=== PATIENT | male | born 1960 | race Caucasian/White ===

== ENCOUNTER → 2019-04-16 08:40 | Outpatient (CLI) | payer MEDICARE, MEDICAID, SELFPAY ==
--- NOTE | 2019-04-16 08:45 | CA_ITS ---
PROCEDURE: 2-D M-mode and color Doppler study INDICATIONS FOR THE TEST: Chest pain COPD Heart Murmur Tobacco Smoking Palpitations Fatigue Syncope EdemaX HypertensionXDiabetes MellitusX Rheumatic Fever SOB MCKEON ObesityXHyperlipidemiaX Family History HDX Additional History CKD,CHF TDS/TLS SECONDARY TO MORBID OBESITY PATIENT INFORMATION HEIGHT: 66 WEIGHT:278 GENDER: Male B/P:100/69 2-D/M-MODE INTERPRETATION: 2-D MEASUREMENTS OBSERVED VALUES IN CMS Right Ventricular Dimension (RVDd) 3.4 Interventricular Septum (Thickness)(IVsd) 1.0 Left Ventricular Internal Dimensions(LVIDd) 4.7 Left Ventricular Posterior Wall (Thickness)(LVPWd) .9 Aortic Root 4.3 Aortic Cusp Separation 2.1 Left Atrial Dimensions (LAD) 2.4 2D 1. Left atrium is mildly enlarged, left ventricle is normal size, mild concentric left ventricular hypertrophy, visually estimated ejection fraction 55% with no regional wall motion abnormality. 2. The right atrium and right ventricle are mildly enlarged with normal contractility. 3. The aortic valve is minimally thickened and calcified leaflet continue to display good mobility, aortic root is enlarged measuring 4.3 cm 4. The mitral and tricuspid valve are grossly normal. 5. The pulmonic valve is poorly visualized. 6. No significant pericardial effusion noted. DOPPLER INTERROGATION: Doppler interrogation of the aortic, mitral and tricuspid valve reveals presence of mild mitral and tricuspid regurgitation, tricuspid regurgitation jet velocity is inadequate for calculation of the right ventricular systolic pressure, grade 1 diastolic dysfunction seen without tissue Doppler evidence of raised left atrial pressure. CONCLUSION: 1. Biatrial enlargement, normal left ventricular size, mild concentric left ventricular hypertrophy, visually estimated ejection fraction 55% with no regional wall motion abnormality, grade 1 diastolic dysfunction seen without tissue Doppler evidence of raised left atrial pressure. 2. Mildly enlarged right ventricle with normal contractility. 3. Mild mitral and tricuspid regurgitation 4. No significant pericardial effusion noted.
== END ==
PROVIDERS: PCP Emergency Medicine; Visit Provider Urology
DX: N18.4 Chronic kidney disease, stage 4 (severe); R89.9 Unspecified abnormal finding in specimens from other organs, systems and tissues; R60.0 Localized edema; I12.9 Hypertensive chronic kidney disease with stage 1 through stage 4 chronic kidney disease, or unspecified chronic kidney disease
CPT/HCPCS: 93306

== ENCOUNTER 2019-11-08 11:12 | Inpatient (IN) ==
--- NOTE | 2019-11-08 10:44 | Emergency Department Note ---
ED Disposition Clinical Impression: Influenza A, Sinus tachycardia Respiratory failure with hypoxia Qualifiers: Chronicity: acute Qualified Code(s): J96.01 - Acute respiratory failure with hypoxia Disposition: Admitted As Inpatient Condition on Discharge: Fair - Critical Care Critical Care Time: Yes Attestation: On , the high probability of a clinically significant, sudden or life threatening deterioration of the following system(s) required my full and direct attention, intervention and personal management. The time I documented below is in addition to time spent performing reported procedures but includes the following listed in this critical care notation. Vital system(s) involved:: Respiratory Failure My critical care processes included: Assessment & monitoring of V/S, Initial and Re-exams, Data Review/Interpretation, Coordinating Care, Medication Orders and management, Documentation Medical Decision Making - Huang Inquiry Pt receiving controlled substance: No Vital Signs: 11/08/19 10:36 11/08/19 11:45 11/08/19 12:13 Temperature 98.7 F 102.1 F H Temperature Source Oral Rectal Pulse Rate [Right Radial] 140 H 140 H 139 H Respiratory Rate 18 Blood Pressure [Right Arm] 104/61 L 116/70 107/65 L Blood Pressure Mean [Right Arm] 75 85 79 Blood Pressure Source [Right Arm] Automatic Cuff Automatic Cuff Blood Pressure Position [Right Arm] Sitting Sitting 02 Sat by Pulse Oximetry 80 L 94 L Oxygen Delivery Method Room Air Nasal Cannula Oxygen Flow Rate (LPM) 4 11/08/19 13:07 11/08/19 13:52 Temperature Temperature Source Pulse Rate [Right Radial] 139 H 135 H Respiratory Rate Blood Pressure [Right Arm] 106/74 L 98/67 L Blood Pressure Mean [Right Arm] 84 77 Blood Pressure Source [Right Arm] Automatic Cuff Automatic Cuff Blood Pressure Position [Right Arm] Sitting Sitting 02 Sat by Pulse Oximetry 93 L 92 L Oxygen Delivery Method Nasal Cannula Nasal Cannula Oxygen Flow Rate (LPM) 4 4 - Lab Data Lab Results 11/08/19 10:50: WBC 8.6, RBC 3.23 L, Hgb 9.5 L, Hct 31.1 L, MCV 96.2 H, MCH 29.4, MCHC 30.6 L, RDW 15.3, Plt Count 152, MPV 10.0, Neut % (Auto) 73.0, Lymph % (Auto) 11.3, [place] % (Auto) 11.9 H, Eos % (Auto) 2.7, Baso % (Auto) 1.1, Neut # (Auto) 6.3, Lymph # (Auto) 1.0, [place] # (Auto) 1.0, Eos # (Auto) 0.2, Baso # (A uto) 0.1 11/08/19 10:50: Sodium 142, Potassium 4.7, Chloride 104, Carbon Dioxide 30, Anion Gap 12.7, BUN 42 H, Creatinine 3.64 H, Estimated Creat Clear 40, Estimated GFR 17 L*, Est GFR ( Amer) 21 L, Glucose 181 H, Calcium 8.4 L, Total Bilirubin 0.2, AST 37, ALT 21, Alkaline Phosphatase 84, Total Protein 6.8, Albumin 2.6 L, Globulin 4.2 H, Albumin/Globulin Ratio 0.6 L 11/08/19 10:50: Lactate 3.1 H 11/08/19 10:50: Troponin I 0.03, Lipase 199 11/08/19 10:50: Influenza Type A Ag Positive A, Influenza Type B Ag Negative 11/08/19 10:50: Group A Strep Rapid Negative 11/08/19 10:50: TSH 1.03, Free T4 Index 3.5 L, Thyroxine (T4) 8.9, T3 Uptake 39 11/08/19 11:38: Urine Color Yellow, Urine Appearance Clear, Urine pH 8.0, Ur Specific [place] 1.020, Urine Protein 2+, Urine Glucose (UA) Negative, Urine Ketones Negative, Urine Blood 1+, Urine Nitrate Negative, Urine Bilirubin Negative, Urine Urobilinogen 0.2, Ur Leukocyte Esterase Negative, Urine RBC 5- 10, Urine WBC 3-5, Ur Squamous Epith Cells Occasional, Urine Bacteria None, Hyaline Casts Occasional 11/08/19 11:55: Specimen Source Left brachial, O2 % 4lpm nc, ABG pH 7.42, ABG pCO2 47.2 H, ABG pO2 33.8 L, ABG HCO3 29.8 H, ABG Total CO2 31.2 H, ABG O2 Saturation 57 L*, ABG Base Excess 5.3 H, Thong Test Non applicable Hgb 9.3 on 10/14/19 per [place] records. Result diagrams: 11/08/19 10:50 11/08/19 10:50 Orders (Tests/Meds): ED MEDICATIONS Generic Name Dose Route Start Last Admin Trade Name Freq PRN Reason Stop Dose Admin Sodium Chloride 1,000 mls @ 150 mls/hr 11/08/19 13:30 Sod Chlor 0.9% 1000ml Bag IV 12/08/19 13:29 .Q6H40M JOSHUA Discontinued Medications Generic Name Dose Route Start Last Admin Trade Name Freq PRN Reason Stop Dose Admin Acetaminophen 1,000 mg 11/08/19 11:55 11/08/19 12:11 Tylenol 500mg Tablet PO 11/08/19 11:56 1,000 mg ONCE ONE Administration Sodium Chloride 1,000 mls @ 999 mls/hr 11/08/19 12:15 11/08/19 12:14 Sod Chlor 0.9% 1000ml Bag IV 11/08/19 13:15 999 mls/hr .Q1H1M JOSHUA Administration ORDERS Category Date Time Status Troponin I Q3H Lab 11/08/19 14:00 Ordered Troponin I Q3H Lab 11/08/19 17:00 Ordered Blood Culture Stat Micro 11/08/19 10:50 Received Strep Screen Confirmation Stat Micro 11/08/19 10:50 Received - Radiology Data #1 Image(s): Chest Image Reviewed: Yes I have reviewed radiologist's interpretation cardiomegaly, NAD - CT Data CT Scan: Head, Abdomen, Pelvis Time Received: 11:[address] Reviewed: Yes: I have viewed the radiologist's interpretation Findings Narrative: abdomen/pelvis: FINDINGS: LOWER THORAX: There are some atelectatic changes in the lung bases. ABDOMEN & PELVIS: The liver, spleen, adrenal glands have an unremarkable appearance. There is a subtle isodense lesion in the pancreas at the junction of the body in the tail measuring 2 cm. Average density is near water values. There is a 2.5 cm cyst within the right kidney. Hyperdensity is present in the right kidney anteriorly at 1 cm nonspecific. There are gallstones present. No evidence of appendicitis or diverticulitis. There is a mild amount of feces in the rectosigmoid region. There is some mild stranding of the subcutaneous fat at the umbilical region. A small umbilical hernia containing fat is noted. No pelvic mass or abnormal fluid collection of the pelvis. There are mild degenerative changes of the spine and hips. IMPRESSION: 1. Rim like calcification in the gallbladder most likely related cholelithiasis. Partial calcification of the gallbladder wall is an additional consideration. Consider ultrasound for further evaluation. 2. There is a questionable 2 cm isodense lesion in the pancreas at the junction of the body in the tail. Nonemergent CT or MRI of the pancreas without and with contrast may provide further evaluation. 3. 1 cm right renal hyperdense nodule. Ultrasound may confirm cystic or solid nature 4. There is a small umbilical hernia containing fat. There is some stranding of the subcutaneous fat around this region consistent with cellulitis Dictated by: Thong Edmondson MD 11/08/2019 11:44 Electronically signed by Thong Edmondson MD in [place] 11/08/2019 11:44 head: FINDINGS: No midline shift, mass effect, intracranial hemorrhage, hydrocephalus, or extra-axial fluid collection is evident. The calvarium has an unremarkable appearance. There is a minimal amount of fluid in the mastoid sinuses. Small air-fluid levels present in the left maxillary sinus with bilateral maxillary sinus sphenoid and ethmoid mucosal thickening. IMPRESSION: 1. No acute intracranial findings. 2. Paranasal sinus and mastoid sinus disease Dictated by: Thong Edmondson MD 11/08/2019 11:34 Electronically signed by Thong Edmondson MD in [place] 11/08/2019 11:34 - ECG Data Tracing #1 I reviewed this ECG and interpreted as documented below: EKG interpreted by Isaiah Dos Santos MD: Rhythm: sinus tachycardia Rate: 138 Golden: Left Ectopy: none Conduction: normal ST Segment Changes: Elevation in V1 and V2, new T Wave Changes: none Q Waves: Septal Poor R wave progression Low voltage QRS - Physician Consults Physician Consulted: TIM Koenig, for Dr. Rowe Time: 10:58 Reason -: Cardiology Eval/Care Comment/Response: He will see the patient and review EKG. Patient is not currently having chest pain. Additional Consult: Sally Time: 13:26 Reason -: Admission Comment/Response: Agrees to admit the patient to the hospital. We discussed the patient's clinical information, including history, exam, laboratory and radiology results and ED course. Per hospital procedure, I will write temporary bridge inpatient orders on the patient. Specific orders requested by the admitting physician: Continue normal saline at 150 cc/h, echocardiogram, Tamiflu, oxygen General Adult HPI - General Chief complaint: Altered Mental Status Stated complaint: AMS Time Seen by Provider: 11/08/19 11:15 - History of Present Illness HPI narrative: Patient is a poor historian. Brought in by ambulance from [facility]. Reported change in his general condition today. Generally weak, not as talkative as usual. Pulse ox 9091% by [facility] staff, but in the mid 80s by EMS. Patient complains of a sore throat. He thinks he has had a fever. Complains of abdominal pain. Denies vomiting or diarrhea. He has noted cough in the emergency room. Noted to have been at the medical equipment sales office 4 days ago. He has anemia and was sent to surgery for colonoscopy. They sent him to medical equipment sales office for card iac clearance prior to procedure. He was found to be tachycardic with a heart rate in the 130s at the medical equipment sales office. Carvedilol was increased. detention reports no change in his heart rate since then. The patient is noted to be diabetic. He has some sort of unspecified chronic cognitive impairment per [facility] staff. - Related Data Home Medications Medication Instructions Recorded Confirmed atorvastatin 20 mg tablet 20 mg PO HS 10/27/18 11/08/19 furosemide 40 mg tablet 40 mg PO DAILY 10/27/18 11/08/19 levothyroxine 100 mcg tablet 100 mcg PO DAILY 10/27/18 11/08/19 risperidone 1 mg tablet 1 mg PO BID 10/27/18 11/08/19 cholecalciferol (vitamin D3) 25 1,000 unit PO DAILY 04/08/19 11/08/19 mcg (1,000 unit) capsule allopurinol 100 mg tablet 100 mg PO DAILY 11/04/19 11/08/19 loratadine 10 mg tablet 10 mg PO DAILY 11/04/19 11/08/19 polysaccharide iron complex 150 mg 150 mg PO DAILY 11/04/19 11/08/19 iron capsule valproic acid (as sodium salt) 250 25 ml PO BID 11/04/19 11/08/19 mg/5 mL (5 mL) oral solution Acetaminophen [Tylenol 500mg 500 mg PO Q4HP PRN 11/08/19 11/08/19 tablet] Calcium Acetate 667 mg PO TID 11/08/19 11/08/19 Fluticasone Propionate [Flovent 1 spray IH DAILY 11/08/19 11/08/19 Diskus] Insulin Glargine,Hum.rec.anlog 20 unit SQ 0900 11/08/19 11/08/19 [Basaglar Kwikpen U-100] Insulin Regular, Human [Novolin R] 1 needle IJ ACHS 11/08/19 11/08/19 Isosorbide Mononitrate 20 mg PO BID 11/08/19 11/08/19 Mag Carb/Aluminum Hydrox/Algin 30 ml PO Q6HP PRN 11/08/19 11/08/19 [Acid Gone Antacid Liquid] Ondansetron HCl [Zofran 4mg Tab*] 4 mg PO Q6HP PRN 11/08/19 11/08/19 Sennosides/Docusate Sodium [Senna 2 tab PO DAILYP PRN 11/08/19 11/08/19 Plus 8.6-50 mg Softgel] carvediloL [Carvedilol 12.5mg Tab] 12.5 mg PO BID 11/08/19 11/08/19 guaiFENesin [Robafen] 10 ml PO Q6HP PRN 11/08/19 11/08/19 Allergies Allergy/AdvReac Type Severity Reaction Status Date / Time No Known Allergies Allergy Verified 11/04/19 10:59 [facility] History - Hepatitis A Screen Attestation statement:: This patient has been screened for Hepatitis A risk factors. I have reviewed the patient's past medical history: Yes Medical History: Reports:: Congestive Heart Failure, Diabetes Mellitus Type 1, Hyperlipidemia, Hypertension, Renal Disease, Renal Insufficiency Other Medical History: Reports: Hypothyroidism, Thyroid Disease, Other Other Surgeries: Yes: No Previous Surgery, Tubal Ligation - Social History Smoking Status: Smoker, status unknown Alcohol Intake: never Substance Use Type: denies use Occupational Status: disabled Family Hx:: Coronary Artery Disease, Heart Attack Comment: Brother-OK. Mother-CAD ROS Obtained: Yes All systems reviewed & no additional complaints - Constitutional Constitutional: Reports fever(s) - ENT Ears, Nose, Mouth, and Throat: Reports sore throat - Cardiovascular Cardiovascular: Denies chest pain - Respiratory Respiratory: Yes cough, No dyspnea - Gastrointestinal Gastrointestingal: Reports: abdominal pain. Denies: diarrhea, vomiting Physical Exam - General General appearance: alert - Head Head exam: atraumatic, normocephalic - Eye Eye exam: Present: normal appearance, EOMI - ENT ENT exam: Present: normal oropharynx, mucous membranes moist, TM's normal yamel aterally - Neck Neck exam: Present: normal inspection, full ROM, trachea midline. Absent: meningismus, lymphadenopathy - Chest Chest inspection: Present: normal inspection, symmetric chest wall rise - Respiratory Respiratory exam: Present: normal lung sounds bilaterally. Absent: respiratory distress - Cardiovascular Cardiovascular exam: Present: normal rhythm, tachycardia, normal heart sounds - Abdominal Exam Abdominal exam: Present: distention, tenderness, normal bowel sounds. Absent: guarding, rebound Abdominal tenderness: Present: diffuse, mild - Extremities Exam Extremities exam: Present: normal inspection - Neurological Exam Neurological exam: Present: alert - Psychiatric Psychiatric exam: Present: normal affect, normal mood - Skin Skin exam: Present: warm, dry. Absent: rash
[2019-11-08 11:20] LABS: Basophils # 0.1 K/mm3 (0-0.2); Basophils % 1.1 % (0.1-2.0); Eosinophils # 0.2 K/mm3 (0.0-0.4); Eosinophils % 2.7 % (0.1-12.0); Hematocrit 31.1 % (42.0-52.0); Hemoglobin 9.5 g/dL (14.1-18.0); Lymphocytes % 11.3 % (10-50); Mean Corpuscular HGB Conc 30.6 g/dL (31.8-35.4); Mean Corpuscular Volume 96.2 fl (80-94); Monocytes % 11.9 % (1.7-9.3); Neutrophils # 6.3 K/mm3 (1.8-7.8); Platelet Count 152 K/mm3 (142-424); Red Blood Count 3.23 M/mm3 (4.60-6.20); Red Cell Distribution Width 15.3 % (11.5-17.5); White Blood Count 8.6 K/mm3 (4.8-10.8)
[2019-11-08 11:28] LABS: Albumin Level 2.6 gm/dL (3.4-5.0); Albumin/Globulin Ratio 0.6 (1.1-1.8); Anion Gap 12.7 mEq/L (5-15); Bilirubin,Total 0.2 mg/dL (0.2-1.0); Calcium 8.4 mg/dL (8.5-10.1); Globulin 4.2 gm/dl (1.3-3.2); Total Protein,Serum 6.8 gm/dL (6.4-8.2)
[2019-11-08 11:44] LABS: Microscopic, Urine URINE MICROSCOPIC (MICROSCOPIC)
[2019-11-08 11:45] LABS: Free Thyroxine Index 3.5 ug/dL (5.93-13.13); Thyroid Stimulating Hormone 1.03 uIU/ml (0.358-3.740)
[2019-11-08 11:47] LABS: Appearance,Urine CLEAR (Clear); Bilirubin,Urine Negative (Negative); Blood, Urine 1+ (Negative); Color,Urine YELLOW (Yellow); Glucose,Urine (UA) Negative (Negative); Ketones,Urine Negative (Negative); Leukocyte Esterase,Urine Negative (Negative); Protein,Urine 2+ (Negative); Urobilinogen,Urine 0.2 EU/dl (0.2)
[2019-11-08 11:57] LABS: Hyaline Casts,Urine Occasional #/lpf (0); Squamous Epithelial Cell,Urine Occasional #/hpf (0-5)
--- NOTE | 2019-11-08 11:57 | Consult Report ---
History of Present Illness Consult date: 11/08/19 Consult reason: shortness of breath Chief complaint: Sore throat, abnormal EKG Additional Medical History:: 1. DM, insulin treated 2. CKD, stage 3, followed by nephrology at [facility] 2[facility]6-3[facility]0 with GFR 28-22, 10/2019 3. Chronic anemia 4. Obesity 5. 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 Mental deficit 7. Hypertension A. Echo, 04/2019, normal LVEF without wall motion abnormalities or significant valve disease. Mild concentric LVH. Mild RVE with normal contractility. 8. Hyperlipidemia, on statin History of present illness: 59-year-old male from [facility] presented to the ER for evaluation. Reportedly has had some decrease in mental status, continued elevated heart rate despite increasing carvedilol therapy earlier this week and generalized malaise and aches. Patient is a an extremely poor historian. He does complain of a sore throat and has a persistent cough. During my exam the patient does have upper extremity tremors. EKG today is sinus tachycardia with questionable ST elevation in the V1 V2 leads with Q waves noted as well. Compared to previous EKGs and after discussion with Dr. Rowe, this is not felt to represent an acute ST elevation ME but rather early repolarization in the setting of an old septal ME. Initial troponin is normal. Of note patient does test positive for influenza A [facility] History Medical History: Reports:: Congestive Heart Failure, Diabetes Mellitus Type 1, Hyperlipidemia, Hypertension, Renal Disease, Renal Insufficiency Denies:: Diabetes Mellitus Type 2 *Have you ever received a pneumonia vaccine?: No *Have you received a flu vaccine this season?: Yes Other Medical History: Reports: Hypothyroidism, Thyroid Disease, Other Other Surgeries: Yes: No Previous Surgery, Tubal Ligation - *Social History Smoking Status: Never smoker Alcohol Intake: never Substance Use Type: denies use *Occupational Status:: disabled [facility]: [facility] *Travel in the last 8 weeks: None Family Hx:: Coronary Artery Disease, Heart Attack Meds Home Medications Medication Instructions Recorded Confirmed Type atorvastatin 20 mg tablet 20 mg PO HS 10/27/18 11/08/19 History furosemide 40 mg tablet 40 mg PO DAILY 10/27/18 11/08/19 History levothyroxine 100 mcg tablet 100 mcg PO DAILY 10/27/18 11/08/19 History risperidone 1 mg tablet 1 mg PO BID 10/27/18 11/08/19 History cholecalciferol (vitamin D3) 25 1,000 unit PO DAILY 04/08/19 11/08/19 History mcg (1,000 unit) capsule allopurinol 100 mg tablet 100 mg PO DAILY 11/04/19 11/08/19 History loratadine 10 mg tablet 10 mg PO DAILY 11/04/19 11/08/19 History polysaccharide iron complex 150 mg 150 mg PO DAILY 11/04/19 11/08/19 History iron capsule valproic acid (as sodium salt) 250 25 ml PO BID 11/04/19 11/08/19 History mg/5 mL (5 mL) oral solution Acetaminophen [Tylenol 500mg 500 mg PO Q4HP PRN 11/08/19 11/08/19 History tablet] Calcium Acetate 667 mg PO TID 11/08/19 11/08/19 History Fluticasone Propionate [Flovent 1 spray IH DAILY 11/08/19 11/08/19 History Diskus] Insulin Glargine,Hum.rec.anlog 20 unit SQ 0900 11/08/19 11/08/19 History [Basaglar Kwikpen U-100] Insulin Regular, Human [Novolin R] 1 needle IJ ACHS 11/08/19 11/08/19 History Isosorbide Mononitrate 20 mg PO BID 11/08/19 11/08/19 History Mag Carb/Aluminum Hydrox/Algin 30 ml PO Q6HP PRN 11/08/19 11/08/19 History [Acid Gone Antacid Liquid] Ondansetron HCl [Zofran 4mg Tab*] 4 mg PO Q6HP PRN 11/08/19 11/08/19 History Sennosides/Docusate Sodium [Senna 2 tab PO DAILYP PRN 11/08/19 11/08/19 History Plus 8.6-50 mg Softgel] carvediloL [Carvedilol 12.5mg Tab] 12.5 mg PO BID 11/08/19 11/08/19 History guaiFENesin [Robafen] 10 ml PO Q6HP PRN 11/08/19 11/08/19 History Allergies Allergy/AdvReac Type Severity Reaction Status Date / Time No Known Allergies Allergy Verified 11/04/19 10:59 Review of Systems - Review of Systems Review of systems:: unable to obtain Exam Vital signs and Labs for Last 24 Hours: Temp Pulse Resp BP Pulse Ox 102.1 F H 140 H 18 116/70 80 L 11/08/19 11:45 11/08/19 11:45 11/08/19 10:36 11/08/19 11:45 11/08/19 10:36 Laboratory Results - last 24 hr 11/08/19 10:50: WBC 8.6, RBC 3.23 L, Hgb 9.5 L, Hct 31.1 L, MCV 96.2 H, MCH 29.4, MCHC 30.6 L, RDW 15.3, Plt Count 152, MPV 10.0, Neut % (Auto) 73.0, Lymph % (Auto) 11.3, [place] % (Auto) 11.9 H, Eos % (Auto) 2.7, Baso % (Auto) 1.1, Neut # (Auto) 6.3, Lymph # (Auto) 1.0, [place] # (Auto) 1.0, Eos # (Auto) 0.2, Baso # (Auto) 0.1 11/08/19 10:50: Sodium 142, Potassium 4.7, Chloride 104, Carbon Dioxide 30, Anion Gap 12.7, BUN 42 H, Creatinine 3.64 H, Estimated Creat Clear 40, Estimated GFR 17 L*, Est GFR ( Amer) 21 L, Glucose 181 H, Calcium 8.4 L, Total Bilirubin 0.2, AST 37, ALT 21, Alkaline Phosphatase 84, Total Protein 6.8, Albumin 2.6 L, Globulin 4.2 H, Albumin/Globulin Ratio 0.6 L 11/08/19 10:50: Lactate 3.1 H 11/08/19 10:50: Troponin I 0.03, Lipase 199 11/08/19 10:50: Influenza Type A Ag Positive A, Influenza Type B Ag Negative 11/08/19 10:50: Group A Strep Rapid Negative 11/08/19 10:50: TSH 1.03, Free T4 Index 3.5 L, Thyroxine (T4) 8.9, T3 Uptake 39 11/08/19 11:38: Urine Color Yellow, Urine Appearance Clear, Urine pH 8.0, Ur Specific [place] 1.020, Urine Protein 2+, Urine Glucose (UA) Negative, Urine Ketones Negative, Urine Blood 1+, Urine Nitrate Negative, Urine Bilirubin Negative, Urine Urobilinogen 0.2, Ur Leukocyte Esterase Negative I & O for Last 24 hours: Intake & Output 11/05/19 11/06/19 11/07/19 11/08/19 11:59 11:59 11:59 11:59 Weight 280 lb - *Routine HEENT Exam Head: Present: normocephalic Eye: Present: EOMI, PERRL ENT: Present: mucous membranes moist - *Routine Neck Exam Present: supple. Absent: JVD, carotid bruit - *Routine Respiratory Exam Present: diminished air movement. Absent: accessory muscle use, rales, rhonchi, wheezes - *Routine Cardiovascular Exam Present: RRR. Absent: murmur, gallop, rubs - *Routine Abdominal Exam Present: soft. Absent: tenderness, distended, guarding - *Routine Extremities Exam Present: edema. 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: with alf use Diabetes mellitus complication status: with circulatory complication Diabetes mellitus complication detail: with other circulatory complications Qualified Code(s): E11.59 - Type 2 diabetes mellitus with other circulatory complications; 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 Sinus tachycardia, likely related to pulmonary process with evidence of influenza A infection on labs and hypoxia on room air initially. Tachycardia should improve once respiratory status improves. Consider switching to bisoprolol for better rate control if needed. 2. No evidence of ACS or CHF, initial troponin is normal, CXR negative for CHF and EKG is without acute ST segment changes. 3. CKD, stage 3-4, stable. 4. DM, insulin treated
[2019-11-08 12:04] LABS: ABG Base Excess 5.3 mmol/L (-2.4-2.3); ABG HCO3 29.8 mmhg (22.0-26.0); ABG Oxygen Saturation 57 % (90-100); ABG PCO2 47.2 mmhg (35.0-45.0); ABG PH 7.42 mmol/L (7.35-7.45); ABG TCO2 31.2 mmhg (23-27)
[2019-11-08 12:07] LABS: ABG PO2 33.8 mmhg (80-100); Allen's Test Non Applicable
--- NOTE | 2019-11-08 15:14 | Pharmacy Consult Notes ---
[facility] Pharmacy VTE Monitoring - Patient Demographics Admission date: 11/08/19 Report Date: 11/08/19 Time: 15:14 Allergies/Adverse Reactions: Patient Allergies No Known Allergies Allergy (Verified 11/04/19 10:59) Height: 1.65 m Weight: 128.622 kg Patient Problems: Current Active Problems Influenza A (Acute) Respiratory failure with hypoxia (Acute) Sinus tachycardia (Acute) - VTE Risk Labs: VTE Related Lab Results Hgb 9.5 g/dL (14.1-18.0) L 11/08/19 10:50 Hct 31.1 % (42.0-52.0) L 11/08/19 10:50 Plt Count 152 K/mm3 (142-424) 11/08/19 10:50 BUN 42 mg/dL (7-18) H 11/08/19 10:50 Creatinine 3.64 mg/dL (0.70-1.30) H 11/08/19 10:50 Estimated Creat Clear 40 mL/min (50-200) 11/08/19 10:50 Was VTE Risk Assessment Performed: Yes VTE Score: 2 VTE Risk Level: Very Low Risk Clinical Trial Participant: No - Prophylaxis VTE Prophylaxis Ordered?: Yes Types of VTE Prophylaxis: TEDS Knee High Location of Applied Device: Bilateral Lower Extremeties
--- NOTE | 2019-11-08 15:45 | Cardiology Report ---
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 Left atrium is mildly enlarged, left ventricle is normal size, mild concentric left ventricular hypertrophy, visually estimated ejection fraction approximately 45 to 50%, there appears to be mild hypokinesis involving the distal septum and anterior apical wall. Right Ventricle Right atrium and right ventricular normal size and contractility. Aortic Valve Aortic valve is thickened and calcified leaflet chordae display mobility. Mitral Valve Mitral valve has mitral annular calcification, leaflets are minimally thickened. Tricuspid Valve Tricuspid valve is grossly normal, there is mild tricuspid regurgitation. Pulmonic Valve Pulmonic valve is poorly visualized. Great Vessels Aortic root is normal size. Pericardium No significant pericardial effusion noted. Conclusion 1. Normal left ventricular size, mild concentric left ventricular hypertrophy, visually estimated ejection fraction approximately 45% to 50% with segmental wall motion abnormality described above, Definity contrast utilized to delineate the endocardial surfaces. Diastolic parameters are inconclusive. 2. Mild mitral and tricuspid regurgitation. 3. No significant pericardial effusion noted. Electronically signed by : Jd Jones, 11/08/2019 15:44:45
--- NOTE | 2019-11-08 15:50 | Electrocardiograph Report ---
APPROVED REPORT Exam: Resting ECG HR:138 bpm ECG Measurements Heart Rate 138 AXES PA 138 P 43 QRSd 70 QRS -48 QT 278 T53 QTc 421 <Conclusion> Sinus tachycardia Left axis deviation Incomplete RBBB Abnormal ECG Electronically signed by : Casa Evangelista, 11/08/2019 15:50:02
[2019-11-08 20:51] LABS: ABG Base Excess -1.3 mmol/L (-2.4-2.3); ABG HCO3 23.2 mmhg (22.0-26.0); ABG Oxygen Saturation 78 % (90-100); ABG PCO2 36.8 mmhg (35.0-45.0); ABG PH 7.42 mmol/L (7.35-7.45); ABG TCO2 24.4 mmhg (23-27)
[2019-11-08 20:52] LABS: Allen's Test Patient Unable; Oxygen 50% VENIMASK %
[2019-11-08 20:53] LABS: ABG PO2 48.3 mmhg (80-100)
--- NOTE | 2019-11-08 21:25 | History & Physical Report ---
*Admission Date: 11/08/19 *Chief complaint: sob *History of present illness: this pt was transferred from [facility] -pt had change in mental status and resp sx atient is a poor historian. Brought in by ambulance from [facility]. Reported change in his general condition today. Generally weak, not as talkative as usual. Pulse ox 9091% by long term staff, but in the mid 80s by EMS. Patient complains of a sore throat. He thinks he has had a fever. Complains of abdominal pain. Denies vomiting or diarrhea. He has noted cough in the emergency room. Noted to have been at the sanitary aide office 4 days ago. He has anemia and was sent to surgery for colonoscopy. They sent him to sanitary aide office for cardiac clearance prior to procedure. He was found to be tachycardic with a heart rate in the 130s at the sanitary aide office. Carvedilol was increased. residential reports no change in his heart rate since then. The patient is noted to be diabetic. He has some sort of unspecified chronic cognitive impairment per long term staff. 1. DM, insulin treated 2. CKD, stage 3, followed by nephrology at A. Cr 2.6-3.0 with GFR 28-22, 10/2019 3. Chronic anemia 4. Obesity 5. Abnormal EKG with presumed old septal VT 6. Mental deficit 7. Hypertension A. Echo, 04/2019, normal LVEF without wall motion abnormalities or significant valve disease. Mild concentric LVH. Mild RVE with normal contractility. 8. Hyperlipidemia, on statin History of present illness: 59-year-old male from [facility] presented to the ER for evaluation. Reportedly has had some decrease in mental status, continued elevated heart rate despite increasing carvedilol therapy earlier this week and generalized malaise and aches. Patient is a an extremely poor historian. He does complain of a sore throat and has a persistent cough. During my exam the patient does have upper extremity tremors. EKG today is sinus tachycardia with questionable ST elevation in the V1 V2 leads with Q waves noted as well. Compared to previous EKGs and after discussion with Dr. Rowe, this is not felt to represent an acute ST elevation VT but rather early repolarization in the setting of an old septal VT. Initial troponin is normal. Of note patient does test positive for influenza A pt was admitted for resp support and ivf [facility] History I have reviewed the patient's past medical history: Yes Medical History: Reports:: Congestive Heart Failure, Diabetes Mellitus Type 1, Diabetes Mellitus Type 2, Hyperlipidemia, Hypertension, Renal Disease, Renal Insufficiency Denies:: Cancer, MRSA *Have you ever received a pneumonia vaccine?: No *Have you received a flu vaccine this season?: No Other Medical History: Reports: Anemia, Hypothyroidism, Thyroid Disease, Other Other Surgeries: Yes: No Previous Surgery, Tubal Ligation Amputation: No - *Social History Educational Level: Attended Grade School Smoking Status: Never smoker Alcohol Intake: never Substance Use Type: denies use *Occupational Status:: employed Housing: long term Household Members: other *Travel in the last 8 weeks: None Family Hx:: Coronary Artery Disease, Heart Attack Review of Systems - Review of Systems Review of systems:: pertinent systems reviewed and negative unless documented below - Constitutional Denies fever(s) - Eyes Denies change in vision - ENT Denies sore throat - *Cardiovascular Reports shortness of breath, Denies chest pain - *Respiratory Reports cough, Reports shortness of breath, Denies coughing up blood - *Gastrointestinal Denies abdominal pain - *Musculoskeletal Denies joint pain - Integumentary/Breasts Denies rash - *Neurologic Reports confusion, Denies seizure-like activity - Psychiatric Denies anxiety Meds Home Medications Medication Instructions Recorded Confirmed Type atorvastatin 20 mg tablet 20 mg PO HS 10/27/18 11/08/19 History furosemide 40 mg tablet 40 mg PO DAILY 10/27/18 11/08/19 History levothyroxine 100 mcg tablet 100 mcg PO DAILY 10/27/18 11/08/19 History risperidone 1 mg tablet 1 mg PO BID 10/27/18 11/08/19 History cholecalciferol (vitamin D3) 25 1,000 unit PO DAILY 04/08/19 11/08/19 History mcg (1,000 unit) capsule allopurinol 100 mg tablet 100 mg PO DAILY 11/04/19 11/08/19 History loratadine 10 mg tablet 10 mg PO DAILY 11/04/19 11/08/19 History polysaccharide iron complex 150 mg 150 mg PO BID 11/04/19 11/08/19 History iron capsule valproic acid (as sodium salt) 250 25 ml PO BID 11/04/19 11/08/19 History mg/5 mL (5 mL) oral solution Acetaminophen [Tylenol 500mg 500 mg PO Q4HP PRN 11/08/19 11/08/19 History tablet] Calcium Acetate 667 mg PO TIDWM 11/08/19 11/08/19 History Fluticasone Propionate [Flovent 1 spray IH DAILY 11/08/19 11/08/19 History Diskus] Insulin Glargine,Hum.rec.anlog 20 unit SQ 0900 11/08/19 11/08/19 History [Basaglar Kwikpen U-100] Insulin Regular, Human [Novolin R] 0 unit SQ ACHS 11/08/19 11/08/19 History Isosorbide Mononitrate 20 mg PO 0800,1600 11/08/19 11/08/19 History Mag Carb/Aluminum Hydrox/Algin 30 ml PO Q6HP PRN 11/08/19 11/08/19 History [Acid Gone Antacid Liquid] Ondansetron HCl [Zofran 4mg Tab*] 4 mg PO Q6HP PRN 11/08/19 11/08/19 History Sennosides/Docusate Sodium [Senna 2 tab PO DAILYP PRN 11/08/19 11/08/19 History Plus 8.6-50 mg Softgel] carvediloL [Carvedilol 12.5mg Tab] 12.5 mg PO BID 11/08/19 11/08/19 History guaiFENesin [Robafen] 10 ml PO Q6HP PRN 11/08/19 11/08/19 History Allergies Allergy/AdvReac Type Severity Reaction Status Date / Time No Known Allergies Allergy Verified 11/04/19 10:59 Exam Vital signs and Labs for Last 24 Hours: Temp Pulse Resp BP Pulse Ox 105.1 F H 149 H 22 101/52 L 85 L 11/08/19 20:45 11/08/19 20:00 11/08/19 20:00 11/08/19 20:00 11/08/19 20:00 Laboratory Results - last 24 hr 11/08/19 10:50: WBC 8.6, RBC 3.23 L, Hgb 9.5 L, Hct 31.1 L, MCV 96.2 H, MCH 29.4, MCHC 30.6 L, RDW 15.3, Plt Count 152, MPV 10.0, Neut % (Auto) 73.0, Lymph % (Auto) 11.3, [place] % (Auto) 11.9 H, Eos % (Auto) 2.7, Baso % (Auto) 1.1, Neut # (Auto) 6.3, Lymph # (Auto) 1.0, [place] # (Auto) 1.0, Eos # (Auto) 0.2, Baso # (Auto) 0.1 11/08/19 10:50: Sodium 142, Potassium 4.7, Chloride 104, Carbon Dioxide 30, Anion Gap 12.7, BUN 42 H, Creatinine 3.64 H, Estimated Creat Clear 40, Estimated GFR 17 L*, Est GFR ( Amer) 21 L, Glucose 181 H, Calcium 8.4 L, Total Bilirubin 0.2, AST 37, ALT 21, Alkaline Phosphatase 84, Total Protein 6.8, Albumin 2.6 L, Globulin 4.2 H, Albumin/Globulin Ratio 0.6 L 11/08/19 10:50: Lactate 3.1 H 11/08/19 10:50: Troponin I 0.03, Lipase 199 11/08/19 10:50: Influenza Type A Ag Positive A, Influenza Type B Ag Negative 11/08/19 10:50: Group A Strep Rapid Negative 11/08/19 10:50: TSH 1.03, Free T4 Index 3.5 L, Thyroxine (T4) 8.9, T3 Uptake 39 11/08/19 11:38: Urine Color Yellow, Urine Appearance Clear, Urine pH 8.0, Ur Specific [place] 1.020, Urine Protein 2+, Urine Glucose (UA) Negative, Urine Ketones Negative, Urine Blood 1+, Urine Nitrate Negative, Urine Bilirubin Negative, Urine Urobilinogen 0.2, Ur Leukocyte Esterase Negative, Urine RBC 5- 10, Urine WBC 3-5, Ur Squamous Epith Cells Occasional, Urine Bacteria None, Hyaline Casts Occasional 11/08/19 11:55: Specimen Source Left brachial, O2 % 4lpm nc, ABG pH 7.42, ABG pCO2 47.2 H, ABG pO2 33.8 L, ABG HCO3 29.8 H, ABG Total CO2 31.2 H, ABG O2 Saturation 57 L*, ABG Base Excess 5.3 H, Thong Test Non applicable 11/08/19 14:36: Troponin I 0.05 01/31/20 15:22: Lactate 1.0 11/08/19 16:32: POC Glucose 121 H 11/08/19 17:22: Troponin I 0.05 11/08/19 20:48: Specimen Source Left radial, O2 % 50% venimask, ABG pH 7.42, ABG pCO2 36.8, ABG pO2 48.3 L, ABG HCO3 23.2, ABG Total CO2 24.4, ABG O2 Saturation 78 L*, ABG Base Excess -1.3, Thong Test Patient unable I & O for Last 24 hours: Intake & Output 11/06/19 11/07/19 11/08/19 11/09/19 11:59 11:59 11:59 11:59 Intake Total 350 / 350 Output Total 800 / 800 Balance -450 / -450 Weight 280 lb 283 lb 9 oz - Constitutional no acute distress, obese - *Routine HEENT Exam Head: Present: normocephalic Eye: Present: EOMI, PERRL ENT: Present: mucous membranes dry - *Routine Neck Exam Present: supple. Absent: JVD - *Routine Respiratory Exam Present: decreased breath sounds, prolonged expiratory phase - *Routine Cardiovascular Exam Present: RRR, murmur, S4 - *Routine Abdominal Exam Present: soft - *Routine Extremities Exam Absent: calf tenderness - *Routine Skin Exam Present: intact - *Routine Neurological Exam Present: altered mental status - Routine Psychiatric Exam Present: unable to assess Assessment and Plan (1) Sinus tachycardia Current visit: Yes Status: Acute Category: Medical Code(s): R00.0 - Tachycardia, unspecified (2) CKD (chronic kidney disease) stage 4, GFR 15-29 ml/min Current visit: No Status: Chronic Category: Medical Code(s): N18.4 - Chronic kidney disease, stage 4 (severe) (3) Diabetes Current visit: No Status: Chronic Qualifiers: Diabetes mellitus type: type 2 Diabetes mellitus intermission coordinator insulin use: with fdc use Diabetes mellitus complication status: with circulatory complication Diabetes mellitus complication detail: with other circulatory complications Qualified Code(s): E11.59 - Type 2 diabetes mellitus with other circulatory complications; Z79.4 - MCC (current) use of insulin Category: Medical Code(s): E11.9 - Type 2 diabetes mellitus without complications (4) HTN (hypertension) Current visit: No Status: Chronic Qualifiers: Hypertension type: essential hypertension Qualified Code(s): I10 - Essential (primary) hypertension Category: Medical Code(s): I10 - Essential (primary) hypertension (5) Influenza A Current visit: Yes Status: Acute Category: Medical Code(s): J10.1 - Influenza due to other identified influenza virus with other respiratory manifestations (6) Respiratory failure with hypoxia Current visit: Yes Status: Acute Qualifiers: Chronicity: acute Qualified Code(s): J96.01 - Acute respiratory failure with hypoxia Category: Medical Code(s): J96.91 - Respiratory failure, unspecified with hypoxia (7) Obesity Current visit: Yes Status: Acute Qualifiers: Obesity type: due to excess calories Obesity classification: adult class 3 (BMI >= 40) Serious obesity comorbidity presence: with serious comorbidity Body mass index: BMI 45.0-49.9 Qualified Code(s): E66.01 - Morbid (severe) obesity due to excess calories; Z68.42 - Body mass index (BMI) 45.0-49.9, adult Category: Medical Code(s): E66.9 - Obesity, unspecified (8) Obesity Current visit: Yes Status: Acute Category: Medical Code(s): E66.9 - Obesity, unspecified
[2019-11-09 06:30] LABS: Basophils % 0.2 % (0.1-2.0); Eosinophils % 0.1 % (0.1-12.0); Hematocrit 32.2 % (42.0-52.0); Lymphocytes # 1.1 K/mm3 (0.7-4.5); Lymphocytes % 10.1 % (10-50); Mean Corpuscular HGB Conc 30.9 g/dL (31.8-35.4); Mean Corpuscular Volume 94.1 fl (80-94); Mean Platelet Volume 9.5 fl (7.4-10.4); Monocytes # 0.7 K/mm3 (0.1-1.0); Monocytes % 6.4 % (1.7-9.3); Neutrophils # 9.3 K/mm3 (1.8-7.8); Neutrophils % 83.3 % (37.0-80.0); Platelet Count 130 K/mm3 (142-424); Red Blood Count 3.43 M/mm3 (4.60-6.20); White Blood Count 11.1 K/mm3 (4.8-10.8)
[2019-11-09 06:45] LABS: Anion Gap 16.8 mEq/L (5-15)
[2019-11-09 06:59] LABS: Calcium 7.3 mg/dL (8.5-10.1)
[2019-11-09 09:13] LABS: ABG Base Excess 0.5 mmol/L (-2.4-2.3); ABG HCO3 26.4 mmhg (22.0-26.0); ABG Oxygen Saturation 87 % (90-100); ABG PH 7.33 mmol/L (7.35-7.45)
[2019-11-09 09:18] LABS: ABG PCO2 50.9 mmhg (35.0-45.0)
--- NOTE | 2019-11-09 09:23 | Progress Note ---
Internal Medicine - PN: Subj *Date: 11/10/19 *Time: 10:59 Interval history: doing better - but cxr worse and now with retention but better overall Exam Vital signs and Labs for Last 24 Hours: Temp Pulse Resp BP Pulse Ox 100.2 F H 111 H 20 86/62 L 98 11/09/19 08:00 11/09/19 08:00 11/09/19 08:00 11/09/19 08:00 11/09/19 08:00 Laboratory Results - last 24 hr 11/08/19 10:50: WBC 8.6, RBC 3.23 L, Hgb 9.5 L, Hct 31.1 L, MCV 96.2 H, MCH 29.4, MCHC 30.6 L, RDW 15.3, Plt Count 152, MPV 10.0, Neut % (Auto) 73.0, Lymph % (Auto) 11.3, [place] % (Auto) 11.9 H, Eos % (Auto) 2.7, Baso % (Auto) 1.1, Neut # (Auto) 6.3, Lymph # (Auto) 1.0, [place] # (Auto) 1.0, Eos # (Auto) 0.2, Baso # (Auto) 0.1 11/08/19 10:50: Sodium 142, Potassium 4.7, Chloride 104, Carbon Dioxide 30, Anion Gap 12.7, BUN 42 H, Creatinine 3.64 H, Estimated Creat Clear 40, Estimated GFR 17 L*, Est GFR ( Amer) 21 L, Glucose 181 H, Calcium 8.4 L, Total Bilirubin 0.2, AST 37, ALT 21, Alkaline Phosphatase 84, Total Protein 6.8, Albumin 2.6 L, Globulin 4.2 H, Albumin/Globulin Ratio 0.6 L 11/08/19 10:50: Lactate 3.1 H 11/08/19 10:50: Troponin I 0.03, Lipase 199 11/08/19 10:50: Influenza Type A Ag Positive A, Influenza Type B Ag Negative 11/08/19 10:50: Group A Strep Rapid Negative 11/08/19 10:50: TSH 1.03, Free T4 Index 3.5 L, Thyroxine (T4) 8.9, T3 Uptake 39 11/08/19 11:38: Urine Color Yellow, Urine Appearance Clear, Urine pH 8.0, Ur Specific [place] 1.020, Urine Protein 2+, Urine Glucose (UA) Negative, Urine Ketones Negative, Urine Blood 1+, Urine Nitrate Negative, Urine Bilirubin Negative, Urine Urobilinogen 0.2, Ur Leukocyte Esterase Negative, Urine RBC 5- 10, Urine WBC 3-5, Ur Squamous Epith Cells Occasional, Urine Bacteria None, Hyaline Casts Occasional 11/08/19 11:55: Specimen Source Left brachial, O2 % 4lpm nc, ABG pH 7.42, ABG pCO2 47.2 H, ABG pO2 33.8 L, ABG HCO3 29.8 H, ABG Total CO2 31.2 H, ABG O2 Saturation 57 L*, ABG Base Excess 5.3 H, Thong Test Non applicable 11/08/19 14:36: Troponin I 0.05 11/08/19 15:22: Lactate 1.0 11/08/19 16:32: POC Glucose 121 H 11/08/19 17:22: Troponin I 0.05 11/08/19 20:30: POC Glucose 145 H 11/08/19 20:48: Specimen Source Left radial, O2 % 50% venimask, ABG pH 7.42, ABG pCO2 36.8, ABG pO2 48.3 L, ABG HCO3 23.2, ABG Total CO2 24.4, ABG O2 Saturation 78 L*, ABG Base Excess -1.3, Thong Test Patient unable 11/09/19 06:05: WBC 11.1 H D, RBC 3.43 L, Hgb 10.0 L, Hct 32.2 L, MCV 94.1 H, MCH 29.1, MCHC 30.9 L, RDW 15.0, Plt Count 130 L, MPV 9.5, Neut % (Auto) 83.3 H, Lymph % (Auto) 10.1, [place] % (Auto) 6.4, Eos % (Auto) 0.1, Baso % (Auto) 0.2, Neut # (Auto) 9.3 H, Lymph # (Auto) 1.1, [place] # (Auto) 0.7, Eos # (Auto) 0.0, Baso # (Auto) 0.0 11/09/19 06:05: Sodium 145, Potassium 4.8, Chloride 107, Carbon Dioxide 26, Anion Gap 16.8 H, BUN 50 H, Creatinine 3.64 H, Estimated Creat Clear 19, Estima maximilian GFR 17 L*, Est GFR ( Amer) 21 L, Glucose 155 H, Calcium 7.3 L D 11/09/19 06:05: Total Creatine Kinase 4730 H* 11/09/19 06:06: POC Glucose 160 H 11/09/19 07:33: POC Glucose 174 H 11/09/19 08:41: ABG pH 7.33 L, ABG pCO2 50.9 H, ABG pO2 62.0 L, ABG HCO3 26.4 H, ABG Total CO2 28.0 H, ABG O2 Saturation 87 L*, ABG Base Excess 0.5 I & O for Last 24 hours: Intake & Output 11/06/19 11/07/19 11/08/19 11/09/19 11:59 11:59 11:59 11:59 Intake Total 1575 / 1575 Output Total 1200 / 1200 Balance 375 / 375 Weight 280 lb 281 lb 6 oz Microbiology Reports for the Last 24 Hours: Microbiology 11/08/19 20:44 Sputum - Expectorated Sputum Gram Stain - Final 11/08/19 20:44 Sputum - Expectorated Sputum Sputum Culture - Preliminary - Constitutional no acute distress, obese - *Routine HEENT Exam Head: Present: normocephalic Eye: Present: EOMI, PERRL ENT: Present: mucous membranes dry - *Routine Neck Exam Absent: JVD - *Routine Respiratory Exam Present: decreased breath sounds - *Routine Cardiovascular Exam Present: RRR, murmur - *Routine Abdominal Exam Present: soft - *Routine Extremities Exam Absent: calf tenderness - *Routine Skin Exam Present: intact - *Routine Neurological Exam Present: CN II-XII intact - Routine Psychiatric Exam Present: unable to assess Assessment and Plan (1) Sinus tachycardia Current visit: Yes Status: Acute Category: Medical Code(s): R00.0 - Tachycardia, unspecified (2) CKD (chronic kidney disease) stage 4, GFR 15-29 ml/min Current visit: No Status: Chronic Category: Medical Code(s): N18.4 - Chronic kidney disease, stage 4 (severe) (3) Diabetes Current visit: No Status: Chronic Qualifiers: Diabetes mellitus type: type 2 Diabetes mellitus usp insulin use: with usp use Diabetes mellitus complication status: with circulatory complication Diabetes mellitus complication detail: with other circulatory complications Qualified Code(s): E11.59 - Type 2 diabetes mellitus with other circulatory complications; Z79.4 - intermission coordinator (current) use of insulin Category: Medical Code(s): E11.9 - Type 2 diabetes mellitus without complications (4) HTN (hypertension) Current visit: No Status: Chronic Qualifiers: Hypertension type: essential hypertension Qualified Code(s): I10 - Essential (primary) hypertension Category: Medical Code(s): I10 - Essential (primary) hypertension (5) Influenza A Current visit: Yes Status: Acute Category: Medical Code(s): J10.1 - Influenza due to other identified influenza virus with other respiratory manifestations (6) Respiratory failure with hypoxia Current visit: Yes Status: Acute Qualifiers: Chronicity: acute Qualified Code(s): J96.01 - Acute respiratory failure with hypoxia Category: Medical Code(s): J96.91 - Respiratory failure, unspecified with hypoxia (7) Obesity Current visit: Yes Status: Acute Qualifiers: Obesity type: due to excess calories Obesity classification: adult class 3 (BMI >= 40) Serious obesity comorbidity presence: with serious comorbidity Body mass index: BMI 45.0-49.9 Qualified Code(s): E66.01 - Morbid (severe) obesity due to excess calories; Z68.42 - Body mass index (BMI) 45.0-49.9, adult Category: Medical Code(s): E66.9 - Obesity, unspecified (8) Obesity Current visit: Yes Status: Acute Category: Medical Code(s): E66.9 - Obesity, unspecified (9) HCAP (healthcare-associated pneumonia) Current visit: Yes Status: Acute Category: Medical Code(s): J18.9 - Pneumonia, unspecified organism
[2019-11-09 11:53] LABS: ABG Base Excess -2.2 mmol/L (-2.4-2.3); ABG HCO3 23.4 mmhg (22.0-26.0); ABG Oxygen Saturation 96 % (90-100); ABG PH 7.35 mmol/L (7.35-7.45); ABG PO2 105.7 mmhg (80-100); ABG TCO2 24.7 mmhg (23-27)
[2019-11-09 11:56] LABS: Allen's Test ACCEPTABLE; Oxygen 100 %
[2019-11-10 10:50] LABS: Basophils % 0.2 % (0.1-2.0); Eosinophils % 0.1 % (0.1-12.0); Hematocrit 30.6 % (42.0-52.0); Hemoglobin 9.3 g/dL (14.1-18.0); Lymphocytes # 0.8 K/mm3 (0.7-4.5); Lymphocytes % 7.6 % (10-50); Mean Corpuscular HGB Conc 30.3 g/dL (31.8-35.4); Mean Corpuscular Volume 97.3 fl (80-94); Mean Platelet Volume 12.4 fl (7.4-10.4); Monocytes # 0.5 K/mm3 (0.1-1.0); Neutrophils # 9.5 K/mm3 (1.8-7.8); Neutrophils % 87.2 % (37.0-80.0); Platelet Count 113 K/mm3 (142-424); Red Blood Count 3.15 M/mm3 (4.60-6.20); White Blood Count 10.9 K/mm3 (4.8-10.8)
[2019-11-10 11:01] LABS: Anion Gap 15.2 mEq/L (5-15); Calcium 7.2 mg/dL (8.5-10.1)
--- NOTE | 2019-11-10 11:02 | Progress Note ---
Internal Medicine - PN: Subj *Date: 11/11/19 *Time: 09:23 Interval history: more alert failed o2 mask - labs pending Exam Vital signs and Labs for Last 24 Hours: Temp Pulse Resp BP Pulse Ox 97.1 F L 57 L 20 104/58 L 88 L 11/10/19 08:00 11/10/19 08:00 11/10/19 08:00 11/10/19 08:00 11/10/19 09:14 Laboratory Results - last 24 hr 11/08/19 11:38: Urine Color Yellow, Urine Appearance Clear, Urine pH 8.0, Ur Specific [place] 1.020, Urine Protein 2+, Urine Glucose (UA) Negative, Urine Ketones Negative, Urine Blood 1+, Urine Nitrate Negative, Urine Bilirubin Negative, Urine Urobilinogen 0.2, Ur Leukocyte Esterase Negative, Urine RBC 5- 10, Urine WBC 3-5, Ur Squamous Epith Cells Occasional, Urine Bacteria None, Hyaline Casts Occasional 11/09/19 11:37: Specimen Source Right radial, O2 % 100, ABG pH 7.35, ABG pCO2 43.0, ABG pO2 105.7 H, ABG HCO3 23.4, ABG Total CO2 24.7, ABG O2 Saturation 96, ABG Base Excess -2.2, Thong Test Acceptable 11/09/19 12:02: POC Glucose 196 H 11/09/19 13:10: B-Natriuretic Peptide 236 H 11/09/19 16:56: POC Glucose 249 H 11/09/19 21:51: POC Glucose 252 H 11/10/19 06:46: POC Glucose 220 H 11/10/19 10:43: WBC 10.9 H, RBC 3.15 L, Hgb 9.3 L, Hct 30.6 L, MCV 97.3 H, MCH 29.5, MCHC 30.3 L, RDW 15.0, Plt Count 113 L, MPV 12.4 H, Neut % (Auto) 87.2 H, Lymph % (Auto) 7.6 L, [place] % (Auto) 5.0, Eos % (Auto) 0.1, Baso % (Auto) 0.2, Neut # (Auto) 9.5 H, Lymph # (Auto) 0.8, [place] # (Auto) 0.5, Eos # (Auto) 0.0, Baso # (Auto) 0.0 I & O for Last 24 hours: Intake & Output 11/07/19 11/08/19 11/09/19 11/10/19 11:59 11:59 11:59 11:59 Intake Total 1575 / 1575 2668 / 2668 Output Total 1200 / 1200 850 / 850 Balance 375 / 375 1818 / 1818 Weight 280 lb 281 lb 6 oz 282 lb 2 oz Microbiology Reports for the Last 24 Hours: Microbiology 11/08/19 10:50 Blood Blood Culture - Preliminary Gram Positive Cocci 11/08/19 10:50 Throat Group A Streptococcus Screen ([place]LE[place]ARIO) - Final Negative for Group A Streptococcus. 11/08/19 20:44 Sputum - Expectorated Sputum Gram Stain - Final 11/08/19 20:44 Sputum - Expectorated Sputum Sputum Culture - Preliminary - Constitutional no acute distress - *Routine HEENT Exam Head: Present: normocephalic Eye: Present: EOMI, PERRL ENT: Present: mucous membranes dry - *Routine Neck Exam Present: supple. Absent: JVD - *Routine Respiratory Exam Present: prolonged expiratory phase - *Routine Cardiovascular Exam Present: RRR - *Routine Abdominal Exam Present: soft - *Routine Extremities Exam Absent: tenderness - *Routine Skin Exam Present: intact - *Routine Neurological Exam Present: alert, CN II-XII intact. Absent: motor deficit - Routine Psychiatric Exam Present: normal affect Assessment and Plan (1) Sinus tachycardia Current visit: Yes Status: Acute Category: Medical Code(s): R00.0 - Tachycardia, unspecified (2) CKD (chronic kidney disease) stage 4, GFR 15-29 ml/min Current visit: No Status: Chronic Category: Medical Code(s): N18.4 - Chronic kidney disease, stage 4 (severe) (3) Diabetes Current visit: No Status: Chronic Qualifiers: Diabetes mellitus type: type 2 Diabetes mellitus terminal press operator insulin use: with [facility] use Diabetes mellitus complication status: with circulatory complication Diabetes mellitus complication detail: with other circulatory complications Qualified Code(s): E11.59 - Type 2 diabetes mellitus with other circulatory complications; Z79.4 - retirement (current) use of insulin Category: Medical Code(s): E11.9 - Type 2 diabetes mellitus without complic ations (4) HTN (hypertension) Current visit: No Status: Chronic Qualifiers: Hypertension type: essential hypertension Qualified Code(s): I10 - Essential (primary) hypertension Category: Medical Code(s): I10 - Essential (primary) hypertension (5) Influenza A Current visit: Yes Status: Acute Category: Medical Code(s): J10.1 - Influenza due to other identified influenza virus with other respiratory manifestations (6) Respiratory failure with hypoxia Current visit: Yes Status: Acute Qualifiers: Chronicity: acute Qualified Code(s): J96.01 - Acute respiratory failure with hypoxia Category: Medical Code(s): J96.91 - Respiratory failure, unspecified with hypoxia (7) Obesity Current visit: Yes Status: Acute Qualifiers: Obesity type: due to excess calories Obesity classification: adult class 3 (BMI >= 40) Serious obesity comorbidity presence: with serious comorbidity Body mass index: BMI 45.0-49.9 Qualified Code(s): E66.01 - Morbid (severe) obesity due to excess calories; Z68.42 - Body mass index (BMI) 45.0-49.9, adult Category: Medical Code(s): E66.9 - Obesity, unspecified (8) Obesity Current visit: Yes Status: Acute Category: Medical Code(s): E66.9 - Obesity, unspecified (9) HCAP (healthcare-associated pneumonia) Current visit: Yes Status: Acute Category: Medical Code(s): J18.9 - Pneumonia, unspecified organism
[2019-11-10 11:14] LABS: Lymphocytes % 8 % (10-50); Monocytes % 2 % (2-9); Neutrophils % 75 % (42-76); Total Cells Counted 100
[2019-11-10 11:15] LABS: Stomatocytes 1+
[2019-11-11 08:45] LABS: Basophils % 0.1 % (0.1-2.0); Eosinophils % 0.1 % (0.1-12.0); Hematocrit 31.1 % (42.0-52.0); Hemoglobin 9.5 g/dL (14.1-18.0); Lymphocytes # 0.7 K/mm3 (0.7-4.5); Lymphocytes % 7.3 % (10-50); Mean Corpuscular HGB Conc 30.4 g/dL (31.8-35.4); Mean Corpuscular Volume 96.9 fl (80-94); Mean Platelet Volume 11.7 fl (7.4-10.4); Monocytes # 0.4 K/mm3 (0.1-1.0); Monocytes % 4.1 % (1.7-9.3); Neutrophils % 88.5 % (37.0-80.0); Platelet Count 99 K/mm3 (142-424); Red Blood Count 3.22 M/mm3 (4.60-6.20); Red Cell Distribution Width 14.9 % (11.5-17.5); White Blood Count 10.1 K/mm3 (4.8-10.8)
[2019-11-11 08:51] LABS: Anion Gap 17.8 mEq/L (5-15)
[2019-11-11 08:54] LABS: Calcium 6.8 mg/dL (8.5-10.1)
[2019-11-11 09:06] LABS: Lymphocytes % 12 % (10-50); Monocytes % 3 % (2-9); Neutrophils % 85 % (42-76); Total Cells Counted 100
[2019-11-11 09:07] LABS: Hypochromasia 1+
--- NOTE | 2019-11-11 09:44 | Progress Note ---
Internal Medicine - PN: Subj *Date: 11/11/19 *Time: 09:41 Interval history: pt alert asking if he gets to go home. vaportherm in place Exam Vital signs and Labs for Last 24 Hours: Temp Pulse Resp BP Pulse Ox 97.8 F 88 24 115/63 92 L 11/11/19 08:00 11/11/19 08:13 11/11/19 08:13 11/11/19 08:00 11/11/19 08:13 Laboratory Results - last 24 hr 11/10/19 10:43: WBC 10.9 H, RBC 3.15 L, Hgb 9.3 L, Hct 30.6 L, MCV 97.3 H, MCH 29.5, MCHC 30.3 L, RDW 15.0, Plt Count 113 L, MPV 12.4 H, Neut % (Auto) 87.2 H, Lymph % (Auto) 7.6 L, [place] % (Auto) 5.0, Eos % (Auto) 0.1, Baso % (Auto) 0.2, Neut # (Auto) 9.5 H, Lymph # (Auto) 0.8, [place] # (Auto) 0.5, Eos # (Auto) 0.0, Baso # (Auto) 0.0, Total Counted 100, Neutrophils % (Manual) 75, Band Neutrophils % 12.0 H, Lymphocytes % (Manual) 8 L, Monocytes % (Manual) 2, Metamyelocytes % 3.0 H, Platelet Estimate Slight decrease, Poikilocytosis 1+, Stomatocytes 1+, Acanthocytes (Spur) 1+ 11/10/19 10:43: Sodium 144, Potassium 4.2, Chloride 108 H, Carbon Dioxide 25, Anion Gap 15.2 H, BUN 74 H D, Creatinine 3.55 H, Estimated Creat Clear 19, Estimated GFR 18 L*, Est GFR ( Amer) 22 L, Glucose 241 H, Calcium 7.2 L 11/10/19 11:03: POC Glucose 249 H 11/10/19 16:50: POC Glucose 283 H 11/10/19 20:40: POC Glucose 273 H 11/11/19 06:02: POC Glucose 238 H 11/11/19 08:35: WBC 10.1, RBC 3.22 L, Hgb 9.5 L, Hct 31.1 L, MCV 96.9 H, MCH 29.4, MCHC 30.4 L, RDW 14.9, Plt Count 99 L, MPV 11.7 H, Neut % (Auto) 88.5 H, Lymph % (Auto) 7.3 L, [place] % (Auto) 4.1, Eos % (Auto) 0.1, Baso % (Auto) 0.1, Neut # (Auto) 9.0 H, Lymph # (Auto) 0.7, [place] # (Auto) 0.4, Eos # (Auto) 0.0, Baso # (Auto) 0.0, Total Counted 100, Neutrophils % (Manual) 85 H, Lymphocytes % (Manual) 12, Monocytes % (Manual) 3, Platelet Estimate Slight decrease, Hypochromasia 1+, Poikilocytosis 1+, Jenny Cells 1+ 11/11/19 08:35: Sodium 147 H, Potassium 3.8, Chloride 110 H, Carbon Dioxide 23, Anion Gap 17.8 H, BUN 73 H, Creatinine 3.08 H, Estimated Creat Clear 32, Estimated GFR 21 L, Est GFR ( Amer) 25 L, Glucose 247 H, Calcium 6.8 L I & O for Last 24 hours: Intake & Output 11/08/19 11/09/19 11/10/19 11/11/19 11:59 11:59 11:59 11:59 Intake Total 1575 / 1575 2668 / 2668 3372 / 3372 Output Total 1200 / 1200 850 / 850 1999 / 1999 Balance 375 / 375 1818 / 1818 1372 / 1372 Weight 280 lb 281 lb 6 oz 282 lb 2 oz 185 lb 9 oz Microbiology Reports for the Last 24 Hours: Microbiology 11/08/19 20:44 Sputum - Expectorated Sputum Gram Stain - Final 11/08/19 20:44 Sputum - Expectorated Sputum Sputum Culture - Preliminary 11/08/19 10:50 Blood Blood Culture - Preliminary Staphylococcus hominis 11/08/19 10:50 Blood Blood Culture - Preliminary NO GROWTH AFTER 48 HOURS 11/08/19 10:50 Throat Group A Streptococcus Screen ([facility]) - Final Negative for Group A Streptococcus. - Constitutional no acute distress, obese - *Routine HEENT Exam Head: Present: normocephalic Eye: Present: PERRL ENT: Present: mucous membranes moist - *Routine Neck Exam Present: supple. Absent: lymphadenopathy - *Routine Respiratory Exam Present: rhonchi, wheezes, diminished air movement - *Routine Cardiovascular Exam Present: RRR - *Routine Abdominal Exam Present: soft, normoactive bowel sounds, obese. Absent: tenderness - *Routine Extremities Exam Present: full ROM. Absent: cyanosis, clubbing, edema - *Routine Skin Exam Present: warm. Absent: rash - *Routine Neurological Exam Present: alert, oriented X3 - Routine Psychiatric Exam Present: normal affect Assessment and Plan (1) Sinus tachycardia Current visit: Yes Status: Acute Category: Medical Code(s): R00.0 - Tachycardia, unspecified (2) CKD (chronic kidney disease) stage 4, GFR 15-29 ml/min Current visit: No Status: Chronic Category: Medical Code(s): N18.4 - Chronic kidney disease, stage 4 (severe) monitor labs (3) Diabetes Current visit: No Status: Chronic Qualifiers: Diabetes mellitus type: type 2 Diabetes mellitus ferry terminal agent insulin use: with nursing home use Diabetes mellitus complication status: with circulatory complication Diabetes mellitus complication detail: with other circulatory complications Qualified Code(s): E11.59 - Type 2 diabetes mellitus with other circulatory complications; Z79.4 - [facility] (current) use of insulin Category: Medical Code(s): E11.9 - Type 2 diabetes mellitus without complications (4) HTN (hypertension) Current visit: No Status: Chronic Qualifiers: Hypertension type: essential hypertension Qualified Code(s): I10 - Essential (primary) hypertension Category: Medical Code(s): I10 - Essential (primary) hypertension (5) Influenza A Current visit: Yes Status: Acute Category: Medical Code(s): J10.1 - Influenza due to other identified influenza virus with other respiratory manifestations (6) Respiratory failure with hypoxia Current visit: Yes Status: Acute Qualifiers: Chronicity: acute Qualified Code(s): J96.01 - Acute respiratory failure with hypoxia Category: Medical Code(s): J96.91 - Respiratory failure, unspecified with hypoxia wean o2 (7) Obesity Current visit: Yes Status: Acute Qualifiers: Obesity type: due to excess calories Obesity classification: adult class 3 (BMI >= 40) Serious obesity comorbidity presence: with serious comorbidity Body mass index: BMI 45.0-49.9 Qualified Code(s): E66.01 - Morbid (severe) obesity due to excess calories; Z68.42 - Body mass index (BMI) 45.0-49.9, adult Category: Medical Code(s): E66.9 - Obesity, unspecified (8) Obesity Current visit: Yes Status: Acute Category: Medical Code(s): E66.9 - Obesity, unspecified (9) HCAP (healthcare-associated pneumonia) Current visit: Yes Status: Acute Category: Medical Code(s): J18.9 - Pneumonia, unspecified organism wait cx results - Assessment and plan all Dx Assessment and Plan for all problems:: rounded with dr gomez all orders per patricia remove rusty titrate off vapertherm to o2 oob
[2019-11-12 06:10] LABS: Basophils % 0.2 % (0.1-2.0); Eosinophils % 0.1 % (0.1-12.0); Hematocrit 30.1 % (42.0-52.0); Hemoglobin 9.2 g/dL (14.1-18.0); Lymphocytes # 0.7 K/mm3 (0.7-4.5); Mean Corpuscular HGB Conc 30.6 g/dL (31.8-35.4); Mean Corpuscular Volume 96.1 fl (80-94); Mean Platelet Volume 10.7 fl (7.4-10.4); Monocytes # 0.5 K/mm3 (0.1-1.0); Monocytes % 4.6 % (1.7-9.3); Neutrophils # 8.7 K/mm3 (1.8-7.8); Neutrophils % 88.1 % (37.0-80.0); Platelet Count 117 K/mm3 (142-424); Red Blood Count 3.14 M/mm3 (4.60-6.20); Red Cell Distribution Width 14.6 % (11.5-17.5); White Blood Count 9.8 K/mm3 (4.8-10.8)
[2019-11-12 07:21] LABS: Anion Gap 13.7 mEq/L (5-15)
[2019-11-12 07:23] LABS: Calcium 6.3 mg/dL (8.5-10.1)
--- NOTE | 2019-11-12 09:30 | Progress Note ---
Internal Medicine - PN: Subj *Date: 11/12/19 *Time: 09:27 Interval history: 59-year-old male patient sitting up in chair tolerating breakfast. He still on Vapotherm, attempting to wean Exam Vital signs and Labs for Last 24 Hours: Temp Pulse Resp BP Pulse Ox 97.8 F 81 20 127/56 L 95 11/12/19 08:00 11/12/19 08:00 11/12/19 08:00 11/12/19 08:00 11/12/19 08:00 Laboratory Results - last 24 hr 11/11/19 11:00: POC Glucose 275 H 11/11/19 16:30: POC Glucose 244 H 11/11/19 22:25: POC Glucose 380 H* 11/12/19 05:46: POC Glucose 264 H 11/12/19 05:55: WBC 9.8, RBC 3.14 L, Hgb 9.2 L, Hct 30.1 L, MCV 96.1 H, MCH 29.4, MCHC 30.6 L, RDW 14.6, Plt Count 117 L, MPV 10.7 H, Neut % (Auto) 88.1 H, Lymph % (Auto) 7.0 L, [place] % (Auto) 4.6, Eos % (Auto) 0.1, Baso % (Auto) 0.2, [place] # (Auto) 8.7 H, Lymph # (Auto) 0.7, [place] # (Auto) 0.5, Eos # (Auto) 0.0, Baso # (Auto) 0.0 11/12/19 05:55: Sodium 143, Potassium 3.7, Chloride 109 H, Carbon Dioxide 24, Anion Gap 13.7, BUN 68 H, Creatinine 2.58 H, Estimated Creat Clear 26, Estimated GFR 26 L, Est GFR ( Amer) 31 L D, Glucose 279 H, Calcium 6.3 L I & O for Last 24 hours: Intake & Output 11/09/19 11/10/19 11/11/19 11/12/19 23:59 23:59 23:59 23:59 Intake Total 1825 / 1825 4185 / 4185 2074 / 2074 Output Total 750 / 750 1175 / 1575 2375 / 2625 375 / 375 Balance 1075 / 1075 3010 / 2610 -300 / -550 -375 / -375 Weight 281 lb 6 oz 282 lb 2 oz 185 lb 3.013 oz 295 lb 1 oz Microbiology Reports for the Last 24 Hours: Microbiology 11/08/19 20:44 Sputum - Expectorated Sputum Gram Stain - Final 11/08/19 20:44 Sputum - Expectorated Sputum Sputum Culture - Preliminary 11/08/19 10:50 Blood Blood Culture - Preliminary Staphylococcus hominis - Constitutional no acute distress - *Routine HEENT Exam Head: Present: normocephalic, atraumatic Eye: Present: EOMI, PERRL. Absent: conjunctival icterus, periorbital tenderness ENT: Present: mucous membranes moist. Absent: sinus tenderness - *Routine Neck Exam Present: supple, full ROM. Absent: JVD - *Routine Respiratory Exam Present: accessory muscle use, decreased breath sounds, wheezes - *Routine Cardiovascular Exam Present: RRR, murmur - *Routine Abdominal Exam Present: soft, normoactive bowel sounds. Absent: tenderness, firm - *Routine Extremities Exam Present: full ROM. Absent: calf tenderness - Routine Back/Spine/Pelvis Exam Back/Spine: Present: full ROM. Absent: CVA tenderness - *Routine Skin Exam Present: intact, warm. Absent: erythema - *Routine Neurological Exam Present: alert, moving all extremities. Absent: hemineglect - Routine Psychiatric Exam Present: normal affect. Absent: visual hallucinations Assessment and Plan (1) Sinus tachycardia Current visit: Yes Status: Acute Category: Medical Code(s): R00.0 - Tachycardia, unspecified (2) CKD (chronic kidney disease) stage 4, GFR 15-29 ml/min Current visit: No Status: Chronic Category: Medical Code(s): N18.4 - Chronic kidney disease, stage 4 (severe) (3) Diabetes Current visit: No Status: Chronic Qualifiers: Diabetes mellitus type: type 2 Diabetes mellitus senior care insulin use: with senior care use Diabetes mellitus complication status: with circulatory complication Diabetes mellitus complication detail: with other circulatory complications Qualified Code(s): E11.59 - Type 2 diabetes mellitus with other circulatory complications; Z79.4 - [facility] (current) use of insulin Category: Medical Code(s): E11.9 - Type 2 diabetes mellitus without complications (4) HTN (hypertension) Current visit: No Status: Chronic Qualifiers: Hypertension type: essential hypertension Qualified Code(s): I10 - Essential (primary) hypertension Category: Medical Code(s): I10 - Essential (primary) hypertension (5) Influenza A Current visit: Yes Status: Acute Category: Medical Code(s): J10.1 - Influenza due to other identified influenza virus with other respiratory manifestations (6) Respiratory failure with hypoxia Current visit: Yes Status: Acute Qualifiers: Chronicity: acute Qualified Code(s): J96.01 - Acute respiratory failure with hypoxia Category: Medical Code(s): J96.91 - Respiratory failure, unspecified with hypoxia (7) Obesity Current visit: Yes Status: Acute Qualifiers: Obesity type: due to excess calories Obesity classification: adult class 3 (BMI >= 40) Serious obesity comorbidity presence: with serious comorbidity Body mass index: BMI 45.0-49.9 Qualified Code(s): E66.01 - Morbid (severe) obesity due to excess calories; Z68.42 - Body mass index (BMI) 45.0-49.9, adult Category: Medical Code(s): E66.9 - Obesity, unspecified (8) Obesity Current visit: Yes Status: Acute Category: Medical Code(s): E66.9 - Obesity, unspecified (9) HCAP (healthcare-associated pneumonia) Current visit: Yes Status: Acute Category: Medical Code(s): J18.9 - Pneumonia, unspecified organism (10) Pickwickian syndrome Current visit: Yes Status: Acute Category: Medical Code(s): E66.2 - Morbid (severe) obesity with alveolar hypoventilation (11) Heart failure, diastolic, acute on chronic Current visit: Yes Status: Acute Category: Medical Code(s): I50.33 - Acute on chronic diastolic (congestive) heart failure - Assessment and plan all Dx Assessment and Plan for all problems:: Rounded with Dr. Zavala, all orders are per Dr. Zavala 1. Positive blood cultures is believed to be contaminant 2. We will reduce IV fluids to 50 an hour while tolerating diet 3. Continue attempt to wean from Vapotherm
[2019-11-12 09:49] LABS: Lymphocytes % 6 % (10-50); Monocytes % 4 % (2-9); Neutrophils % 87 % (42-76); RBC Morphology Normal; Total Cells Counted 100
--- NOTE | 2019-11-12 11:08 | Progress Note ---
Internal Medicine - PN: Subj *Date: 11/12/19 *Time: 11:08 Exam Vital signs and Labs for Last 24 Hours: Temp Pulse Resp BP Pulse Ox 97.8 F 81 20 127/56 L 95 11/12/19 08:00 11/12/19 08:00 11/12/19 08:00 11/12/19 08:00 11/12/19 08:00 Laboratory Results - last 24 hr 11/11/19 11:00: POC Glucose 275 H 11/11/19 16:30: POC Glucose 244 H 11/11/19 22:25: POC Glucose 380 H* 11/12/19 05:46: POC Glucose 264 H 11/12/19 05:55: WBC 9.8, RBC 3.14 L, Hgb 9.2 L, Hct 30.1 L, MCV 96.1 H, MCH 29.4, MCHC 30.6 L, RDW 14.6, Plt Count 117 L, MPV 10.7 H, Neut % (Auto) 88.1 H, Lymph % (Auto) 7.0 L, [place] % (Auto) 4.6, Eos % (Auto) 0.1, Baso % (Auto) 0.2, Neut # (Auto) 8.7 H, Lymph # (Auto) 0.7, [place] # (Auto) 0.5, Eos # (Auto) 0.0, Baso # (Auto) 0.0, Total Counted 100, Neutrophils % (Manual) 87 H, Band Neutrophils % 3.0, Lymphocytes % (Manual) 6 L, Monocytes % (Manual) 4, Platelet Estimate Slight decrease, RBC Morphology Normal 11/12/19 05:55: Sodium 143, Potassium 3.7, Chloride 109 H, Carbon Dioxide 24, Anion Gap 13.7, BUN 68 H, Creatinine 2.58 H, Estimated Creat Clear 26, Estimated GFR 26 L, Est GFR ( Amer) 31 L D, Glucose 279 H, Calcium 6.3 L I & O for Last 24 hours: Intake & Output 11/09/19 11/10/19 11/11/19 11/12/19 23:59 23:59 23:59 23:59 Intake Total 1825 / 1825 4185 / 4185 2074 / 2075 Output Total 750 / 750 1175 / 1575 2375 / 2625 375 / 375 Balance 1075 / 1075 3010 / 2610 -300 / -550 -375 / -375 Weight 127.63 kg 127.97 kg 84 kg 133.838 kg Microbiology Reports for the Last 24 Hours: Microbiology 11/08/19 20:44 Sputum - Expectorated Sputum Gram Stain - Final 11/08/19 20:44 Sputum - Expectorated Sputum Sputum Culture - Preliminary 11/08/19 10:50 Blood Blood Culture - Preliminary Staphylococcus hominis Assessment and Plan (1) Sinus tachycardia Current visit: Yes Status: Acute Category: Medical Code(s): R00.0 - [place] hycardia, unspecified (2) CKD (chronic kidney disease) stage 4, GFR 15-29 ml/min Current visit: No Status: Chronic Category: Medical Code(s): N18.4 - Chronic kidney disease, stage 4 (severe) (3) Diabetes Current visit: No Status: Chronic Qualifiers: Diabetes mellitus type: type 2 Diabetes mellitus halfway insulin use: with watermelon harvesting supervisor use Diabetes mellitus complication status: with circulatory complication Diabetes mellitus complication detail: with other circulatory complications Qualified Code(s): E11.59 - Type 2 diabetes mellitus with other circulatory complications; Z79.4 - truck terminal manager (current) use of insulin Category: Medical Code(s): E11.9 - Type 2 diabetes mellitus without complications (4) HTN (hypertension) Current visit: No Status: Chronic Qualifiers: Hypertension type: essential hypertension Qualified Code(s): I10 - Essential (primary) hypertension Category: Medical Code(s): I10 - Essential (primary) hypertension (5) Influenza A Current visit: Yes Status: Acute Category: Medical Code(s): J10.1 - Influenza due to other identified influenza virus with other respiratory manifestations (6) Respiratory failure with hypoxia Current visit: Yes Status: Acute Qualifiers: Chronicity: acute Qualified Code(s): J96.01 - Acute respiratory failure with hypoxia Category: Medical Code(s): J96.91 - Respiratory failure, unspecified with hypoxia (7) Obesity Current visit: Yes Status: Acute Qualifiers: Obesity type: due to excess calories Obesity classification: adult class 3 (BMI >= 40) Serious obesity comorbidity presence: with serious comorbidity Body mass index: BMI 45.0-49.9 Qualified Code(s): E66.01 - Morbid (severe) obesity due to excess calories; Z68.42 - Body mass index (BMI) 45.0-49.9, adult Category: Medical Code(s): E66.9 - Obesity, unspecified (8) Obesity Current visit: Yes Status: Acute Category: Medical Code(s): E66.9 - Obesity, unspecified (9) HCAP (healthcare-associated pneumonia) Current visit: Yes Status: Acute Category: Medical Code(s): J18.9 - Pneumonia, unspecified organism (10) Pickwickian syndrome Current visit: Yes Status: Acute Category: Medical Code(s): E66.2 - Morbid (severe) obesity with alveolar hypoventilation (11) Heart failure, diastolic, acute on chronic Current visit: Yes Status: Acute Category: Medical Code(s): I50.33 - Acute on chronic diastolic (congestive) heart failure The patient's infection will respond to the chosen ABx?: Yes Is the patient receiving the right drug, dose, and route?: Yes Could a more targeted ABx be ordered?: No (STAPH HOMINIS SENSITIVE TO CLINDAMYCIN)
[2019-11-13 07:23] LABS: Basophils % 0.2 % (0.1-2.0); Eosinophils % 0.1 % (0.1-12.0); Hematocrit 30.7 % (42.0-52.0); Hemoglobin 9.6 g/dL (14.1-18.0); Lymphocytes # 0.9 K/mm3 (0.7-4.5); Lymphocytes % 8.4 % (10-50); Mean Corpuscular HGB Conc 31.1 g/dL (31.8-35.4); Mean Corpuscular Volume 94.2 fl (80-94); Mean Platelet Volume 10.3 fl (7.4-10.4); Monocytes # 0.5 K/mm3 (0.1-1.0); Monocytes % 4.2 % (1.7-9.3); Neutrophils # 9.4 K/mm3 (1.8-7.8); Neutrophils % 87.1 % (37.0-80.0); Platelet Count 118 K/mm3 (142-424); Red Blood Count 3.26 M/mm3 (4.60-6.20); Red Cell Distribution Width 14.6 % (11.5-17.5); White Blood Count 10.8 K/mm3 (4.8-10.8)
[2019-11-13 07:42] LABS: Calcium 6.3 mg/dL (8.5-10.1)
--- NOTE | 2019-11-13 09:49 | Progress Note ---
Internal Medicine - PN: Subj *Date: 11/13/19 *Time: 13:03 Interval history: 59 YOM sitting up in chair w/ Vapotherm on. He reports having a non-prod cough, but feeling better. Exam Vital signs and Labs for Last 24 Hours: Temp Pulse Resp BP Pulse Ox 97.6 F 68 20 137/78 90 L 11/13/19 04:00 11/13/19 05:53 11/13/19 04:00 11/13/19 04:00 11/13/19 05:53 Laboratory Results - last 24 hr 11/12/19 05:55: Total Counted 100, Neutrophils % (Manual) 87 H, Band Neutrophils % 3.0, Lymphocytes % (Manual) 6 L, Monocytes % (Manual) 4, Platelet Estimate Slight decrease, RBC Morphology Normal 11/12/19 11:13: POC Glucose 267 H 11/12/19 16:49: POC Glucose 343 H* 11/12/19 21:09: POC Glucose 239 H 11/13/19 05:36: POC Glucose 260 H 11/13/19 06:48: WBC 10.8, RBC 3.26 L, Hgb 9.6 L, Hct 30.7 L, MCV 94.2 H, MCH 29.3, MCHC 31.1 L, RDW 14.6, Plt Count 118 L, MPV 10.3, Neut % (Auto) 87.1 H, Lymph % (Auto) 8.4 L, [place] % (Auto) 4.2, Eos % (Auto) 0.1, Baso % (Auto) 0.2, Neut # (Auto) 9.4 H, Lymph # (Auto) 0.9, [place] # (Auto) 0.5, Eos # (Auto) 0.0, Baso # (Auto) 0.0 11/13/19 06:48: Sodium 144, Potassium 4.0, Chloride 109 H, Carbon Dioxide 24, Anion Gap 15.0, BUN 65 H, Creatinine 2.29 H, Estimated Creat Clear 30, Estimated GFR 30 L, Est GFR ( Amer) 36 L, Glucose 259 H, Calcium 6.3 L I & O for Last 24 hours: Intake & Output 11/10/19 11/11/19 11/12/19 11/13/19 23:59 23:59 23:59 23:59 Intake Total 4185 / 4185 2075 / 2075 1500 / 1500 240 / 240 Output Total 1175 / 1575 2375 / 2625 1025 / 1475 1000 / 1000 Balance 3010 / 2610 -300 / -550 475 / 25 -760 / -760 Weight 282 lb 2 oz 185 lb 3.013 oz 295 lb 1 oz 297 lb 9 oz Microbiology Reports for the Last 24 Hours: Microbiology 11/08/19 20:44 Sputum - Expectorated Sputum Gram Stain - Final 11/08/19 20:44 Sputum - Expectorated Sputum Sputum Culture - Final - Constitutional no acute distress, morbidly obese - *Routine HEENT Exam Head: Present: normocephalic, atraumatic Eye: Present: EOMI, PERRL, normal accommodation. Absent: periorbital swelling ENT: Present: mucous membranes moist, sinus tenderness - *Routine Neck Exam Present: supple, full ROM, trachea midline. Absent: tracheal deviation - *Routine Respiratory Exam Present: rhonchi, wheezes. Absent: accessory muscle use - *Routine Cardiovascular Exam Present: RRR, murmur - *Routine Abdominal Exam Present: soft, normoactive bowel sounds. Absent: tenderness, firm - *Routine Extremities Exam Present: pulses intact. Absent: calf tenderness - Routine Back/Spine/Pelvis Exam Back/Spine: Present: full ROM. Absent: CVA tenderness - *Routine Skin Exam Present: intact, warm - *Routine Neurological Exam Present: alert, CN II-XII intact. Absent: motor deficit - Routine Psychiatric Exam Present: normal affect, cooperative. Absent: visual hallucinations, anxious Assessment and Plan (1) Sinus tachycardia Current visit: Yes Status: Acute Category: Medical Code(s): R00.0 - Tachycardia, unspecified (2) CKD (chronic kidney disease) stage 4, GFR 15-29 ml/min Current visit: No Status: Chronic Category: Medical Code(s): N18.4 - Chronic kidney disease, stage 4 (severe) (3) Diabetes Current visit: No Status: Chronic Qualifiers: Diabetes mellitus type: type 2 Diabetes mellitus residential insulin use: with public health administrator use Diabetes mellitus complication status: with circulatory complication Diabetes mellitus complication detail: with other circulatory complications Qualified Code(s): E11.59 - Type 2 diabetes mellitus with other circulatory complications; Z79.4 - supervisor mill (current) use of insulin Category: Medical Code(s): E11.9 - Type 2 diabetes mellitus without complications (4) HTN (hypertension) Current visit: No Status: Chronic Qualifiers: Hypertension type: essential hypertension Qualified Code(s): I10 - Essential (primary) hypertension Category: Medical Code(s): I10 - Essential (primary) hypertension (5) Influenza A Current visit: Yes Status: Acute Category: Medical Code(s): J10.1 - Influenza due to other identified influenza virus with other respiratory manifestations (6) Respiratory failure with hypoxia Current visit: Yes Status: Acute Qualifiers: Chronicity: acute Qualified Code(s): J96.01 - Acute respiratory failure with hypoxia Category: Medical Code(s): J96.91 - Respiratory failure, unspecified with hypoxia (7) Obesity Current visit: Yes Status: Acute Qualifiers: Obesity type: due to excess calories Obesity classification: adult class 3 (BMI >= 40) Serious obesity comorbidity presence: with serious comorbidity Body mass index: BMI 45.0-49.9 Qualified Code(s): E66.01 - Morbid (severe) obesity due to excess calories; Z68.42 - Body mass index (BMI) 45.0-49.9, adult Category: Medical Code(s): E66.9 - Obesity, unspecified (8) Obesity Current visit: Yes Status: Acute Category: Medical Code(s): E66.9 - Obesity, unspecified (9) HCAP (healthcare-associated pneumonia) Current visit: Yes Status: Acute Category: Medical Code(s): J18.9 - Pneumonia, unspecified organism (10) Pickwickian syndrome Current visit: Yes Status: Acute Category: Medical Code(s): E66.2 - Morbid (severe) obesity with alveolar hypoventilation (11) Heart failure, diastolic, acute on chronic Current visit: Yes Status: Acute Category: Medical Code(s): I50.33 - Acute on chronic diastolic (congestive) heart failure - Assessment and plan all Dx Assessment and Plan for all problems:: Rounded with Dr. Zavala, all orders per Dr. Zavala 1. We will get ABG on 3 L nasal cannula 2. Will refill to follow refer to pulmonology
[2019-11-13 11:06] LABS: Lymphocytes % 9 % (10-50); Monocytes % 3 % (2-9); Neutrophils % 88 % (42-76); Nucleated Red Blood Cells 2; Total Cells Counted 100
[2019-11-13 11:07] LABS: Hypochromasia 1+
[2019-11-13 13:07] LABS: ABG Base Excess -3.2 mmol/L (-2.4-2.3); ABG HCO3 22.1 mmhg (22.0-26.0); ABG Oxygen Saturation 79 % (90-100); ABG PCO2 39.2 mmhg (35.0-45.0); ABG PH 7.37 mmol/L (7.35-7.45); ABG PO2 50.4 mmhg (80-100); ABG TCO2 23.3 mmhg (23-27)
[2019-11-13 13:09] LABS: Allen's Test ACCEPTABLE
[2019-11-14 06:59] LABS: Anion Gap 13.1 mEq/L (5-15)
[2019-11-14 07:01] LABS: Basophils % 0.3 % (0.1-2.0); Eosinophils % 0.1 % (0.1-12.0); Hematocrit 32.1 % (42.0-52.0); Lymphocytes # 1.1 K/mm3 (0.7-4.5); Lymphocytes % 8.8 % (10-50); Mean Corpuscular HGB Conc 31.1 g/dL (31.8-35.4); Mean Corpuscular Volume 93.8 fl (80-94); Mean Platelet Volume 9.8 fl (7.4-10.4); Monocytes # 0.9 K/mm3 (0.1-1.0); Monocytes % 7.9 % (1.7-9.3); Neutrophils # 9.9 K/mm3 (1.8-7.8); Neutrophils % 82.9 % (37.0-80.0); Platelet Count 134 K/mm3 (142-424); Red Blood Count 3.42 M/mm3 (4.60-6.20); Red Cell Distribution Width 14.8 % (11.5-17.5); White Blood Count 11.9 K/mm3 (4.8-10.8)
[2019-11-14 07:21] LABS: Calcium 6.2 mg/dL (8.5-10.1)
--- NOTE | 2019-11-14 09:22 | Progress Note ---
Internal Medicine - PN: Subj *Date: 11/14/19 *Time: 09:18 Interval history: pt sitting up in chair states he feels better today Exam Vital signs and Labs for Last 24 Hours: Temp Pulse Resp BP Pulse Ox 97.4 F L 87 20 153/88 H 90 L 11/14/19 08:00 11/14/19 08:00 11/14/19 08:00 11/14/19 08:00 11/14/19 08:00 Laboratory Results - last 24 hr 11/13/19 06:48: Total Counted 100, Neutrophils % (Manual) 88 H, Lymphocytes % (Manual) 9 L, Monocytes % (Manual) 3, Nucleated RBCs 2, Platelet Estimate Normal, Hypochromasia 1+ 11/13/19 11:16: POC Glucose 301 H* 11/13/19 11:37: Specimen Source R radial, O2 % 3lpm, ABG pH 7.37, ABG pCO2 39.2, ABG pO2 50.4 L, ABG HCO3 22.1, ABG Total CO2 23.3, ABG O2 Saturation 79 L*, ABG Base Excess -3.2 L, Thong Test Acceptable 11/13/19 16:37: POC Glucose 295 H 11/14/19 06:03: POC Glucose 213 H 11/14/19 06:10: WBC 11.9 H, RBC 3.42 L, Hgb 10.0 L, Hct 32.1 L, MCV 93.8, MCH 29.2, MCHC 31.1 L, RDW 14.8, Plt Count 134 L, MPV 9.8, Neut % (Auto) 82.9 H, Lymph % (Auto) 8.8 L, [place] % (Auto) 7.9, Eos % (Auto) 0.1, Baso % (Auto) 0.3, Neut # (Auto) 9.9 H, Lymph # (Auto) 1.1, [place] # (Auto) 0.9, Eos # (Auto) 0.0, Baso # (Auto) 0.0 11/14/19 06:10: Sodium 145, Potassium 4.1, Chloride 111 H, Carbon Dioxide 25, Anion Gap 13.1, BUN 61 H, Creatinine 2.07 H, Estimated Creat Clear 33, Estimated GFR 33 L, Est GFR ( Amer) 40 L, Glucose 219 H, Calcium 6.2 L I & O for Last 24 hours: Intake & Output 11/11/19 11/12/19 11/13/19 11/14/19 11:59 11:59 11:59 11:59 Intake Total 3372 / 3372 1360 / 1360 1200 / 1200 2807 / 2807 Output Total 2650 / 2650 1025 / 1025 1400 / 1400 675 / 675 Balance 722 / 722 335 / 335 -200 / -200 2132 / 2132 Weight 185 lb 9 oz 295 lb 1 oz 297 lb 9 oz 296 lb 6 oz Microbiology Reports for the Last 24 Hours: Microbiology 11/08/19 10:50 Blood Blood Culture - Final NO GROWTH AFTER 5 DAYS 11/08/19 20:44 Sputum - Expectorated Sputum Gram Stain - Final 11/08/19 20:44 Sputum - Expectorated Sputum Sputum Culture - Final - Constitutional no acute distress, chronically ill appearing - *Routine HEENT Exam Head: Present: normocephalic Eye: Present: PERRL ENT: Present: mucous membranes moist - *Routine Neck Exam Present: supple - *Routine Respiratory Exam Present: rhonchi, diminished air movement - *Routine Cardiovascular Exam Present: RRR - *Routine Abdominal Exam Present: soft, normoactive bowel sounds. Absent: tenderness - *Routine Extremities Exam Present: full ROM, normal capillary refill. Absent: cyanosis, clubbing, edema - *Routine Skin Exam Present: warm. 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 - Routine Psychiatric Exam Present: normal affect Assessment and Plan (1) Sinus tachycardia Current visit: Yes Status: Acute Category: Medical Code(s): R00.0 - Tachycardia, unspecified (2) CKD (chronic kidney disease) stage 4, GFR 15-29 ml/min Current visit: Yes Status: Chronic Category: Medical Code(s): N18.4 - Chronic kidney disease, stage 4 (severe) (3) Diabetes Current visit: No Status: Chronic Qualifiers: Diabetes mellitus type: type 2 Diabetes mellitus lobsterman insulin use: with skilled nursing use Diabetes mellitus complication status: with circulatory complication Diabetes mellitus complication detail: with other circulatory complications Qualified Code(s): E11.59 - Type 2 diabetes mellitus with other circulatory complications; Z79.4 - custodial (current) use of insulin Category: Medical Code(s): E11.9 - Type 2 diabetes mellitus without complications (4) HTN (hypertension) Current visit: No Status: Chronic Qualifiers: Hypertension type: essential hypertension Qualified Code(s): I10 - Essential (primary) hypertension Category: Medical Code(s): I10 - Essential (primary) hypertension (5) Influenza A Current visit: Yes Status: Acute Category: Medical Code(s): J10.1 - Influenza due to other identified influenza virus with other respiratory manifestations (6) Respiratory failure with hypoxia Current visit: Yes Status: Acute Qualifiers: Chronicity: acute Qualified Code(s): J96.01 - Acute respiratory failure with hypoxia Category: Medical Code(s): J96.91 - Respiratory failure, unspecified with hypoxia (7) Obesity Current visit: Yes Status: Acute Qualifiers: Obesity type: due to excess calories Obesity classification: adult class 3 (BMI >= 40) Serious obesity comorbidity presence: with serious comorbidity Body mass index: BMI 45.0-49.9 Qualified Code(s): E66.01 - Morbid (severe) obesity due to excess calories; Z68.42 - Body mass index (BMI) 45.0-49.9, adult Category: Medical Code(s): E66.9 - Obesity, unspecified (8) Obesity Current visit: Yes Status: Acute Category: Medical Code(s): E66.9 - Obesity, unspecified (9) HCAP (healthcare-associated pneumonia) Current visit: Yes Status: Acute Category: Medical Code(s): J18.9 - Pneumonia, unspecified organism (10) Pickwickian syndrome Current visit: Yes Status: Acute Category: Medical Code(s): E66.2 - Morbid (severe) obesity with alveolar hypoventilation (11) Heart failure, diastolic, acute on chronic Current visit: Yes Status: Acute Category: Medical Code(s): I50.33 - Acute on chronic diastolic (congestive) heart failure (12) Aspiration pneumonia Current visit: Yes Status: Acute Category: Medical Code(s): J69.0 - Pneumonitis due to inhalation of food and vomit - Assessment and plan all Dx Assessment and Plan for all problems:: rounded with dr gomez all orders per dr gomez speech at bedside states aspiration change to thick liquids
[2019-11-15 06:08] LABS: Basophils # 0.1 K/mm3 (0-0.2); Basophils % 0.5 % (0.1-2.0); Hematocrit 31.4 % (42.0-52.0); Hemoglobin 9.9 g/dL (14.1-18.0); Lymphocytes # 0.8 K/mm3 (0.7-4.5); Lymphocytes % 9.4 % (10-50); Mean Corpuscular HGB Conc 31.5 g/dL (31.8-35.4); Mean Platelet Volume 10.5 fl (7.4-10.4); Monocytes # 0.6 K/mm3 (0.1-1.0); Monocytes % 6.6 % (1.7-9.3); Neutrophils # 7.3 K/mm3 (1.8-7.8); Neutrophils % 83.4 % (37.0-80.0); Platelet Count 161 K/mm3 (142-424); Red Blood Count 3.34 M/mm3 (4.60-6.20); White Blood Count 8.8 K/mm3 (4.8-10.8)
[2019-11-15 06:13] LABS: Anion Gap 13.4 mEq/L (5-15)
[2019-11-15 06:14] LABS: Calcium 6.2 mg/dL (8.5-10.1)
[2019-11-15 09:16] LABS: Basophils % 0.5 % (0.1-2.0); Eosinophils % 0.2 % (0.1-12.0); Hematocrit 32.1 % (42.0-52.0); Hemoglobin 10.3 g/dL (14.1-18.0); Lymphocytes # 0.8 K/mm3 (0.7-4.5); Lymphocytes % 9.4 % (10-50); Mean Corpuscular HGB Conc 32.3 g/dL (31.8-35.4); Mean Corpuscular Volume 92.1 fl (80-94); Mean Platelet Volume 11.6 fl (7.4-10.4); Monocytes # 0.8 K/mm3 (0.1-1.0); Monocytes % 8.9 % (1.7-9.3); Neutrophils # 7.1 K/mm3 (1.8-7.8); Platelet Count 151 K/mm3 (142-424); Red Blood Count 3.48 M/mm3 (4.60-6.20); Red Cell Distribution Width 15.1 % (11.5-17.5); White Blood Count 8.7 K/mm3 (4.8-10.8)
[2019-11-15 09:27] LABS: Anion Gap 15.3 mEq/L (5-15)
[2019-11-15 09:28] LABS: Calcium 6.4 mg/dL (8.5-10.1)
--- NOTE | 2019-11-15 09:52 | Consult Report ---
*Admission Date: 11/08/19 *Reason for consult:: Respiratory failure and pneumonia *History of present illness: 59-year-old male from [facility] with some decrease in mental status, generalized malaise and aches. Patient is a an extremely poor historian. He does complain of a sore throat and has a persistent cough. test positive for influenza A pt was admitted for resp support and ivf. When I saw him he was sitting up in a chair breathing easily. Patient is obese and appears to have a restrictive ventilatory defect of his abdomen pushing and causing atelectasis. His habitus might suggest obesity hypoventilation syndrome [facility] History Medical History: Reports:: Congestive Heart Failure, Diabetes Mellitus Type 1, Diabetes Mellitus Type 2, Hyperlipidemia, Hypertension, Renal Disease, Renal Insufficiency Denies:: Cancer, MRSA *Have you ever received a pneumonia vaccine?: Yes *Have you received a flu vaccine this season?: No Other Medical History: Reports: Anemia, Hypothyroidism, Thyroid Disease, Other Other Surgeries: Yes: No Previous Surgery, Tubal Ligation Amputation: No - *Social History Educational Level: Attended Grade School Smoking Status: Never smoker Alcohol Intake: never Substance Use Type: denies use *Occupational Status:: employed Housing: assisted Household Members: other *Travel in the last 8 weeks: None Family Hx:: Coronary Artery Disease, Heart Attack Review of Systems - Review of Systems Review of systems:: pertinent systems reviewed and negative unless documented below - *Neurologic Reports confusion, Denies seizure-like activity Meds Home Medications Medication Instructions Recorded Confirmed Type atorvastatin 20 mg tablet 20 mg PO HS 10/27/18 11/11/19 History furosemide 40 mg tablet 40 mg PO DAILY 10/27/18 11/11/19 History levothyroxine 100 mcg tablet 100 mcg PO DAILY 10/27/18 11/11/19 History risperidone 1 mg tablet 1 mg PO BID 10/27/18 11/11/19 History cholecalciferol (vitamin D3) 25 1,000 unit PO DAILY 04/08/19 11/11/19 History mcg (1,000 unit) capsule allopurinol 100 mg tablet 100 mg PO DAILY 11/04/19 11/11/19 History loratadine 10 mg tablet 10 mg PO DAILY 11/04/19 11/11/19 History polysaccharide iron complex 150 mg 150 mg PO BID 11/04/19 11/11/19 History iron capsule valproic acid (as sodium salt) 250 25 ml PO BID 11/04/19 11/11/19 History mg/5 mL (5 mL) oral solution Acetaminophen [Tylenol 500mg 500 mg PO Q4HP PRN 11/08/19 11/11/19 History tablet] Calcium Acetate 667 mg PO TIDWM 11/08/19 11/11/19 History Fluticasone Propionate [Flovent 1 spray IH DAILY 11/08/19 11/11/19 History Diskus] Insulin Glargine,Hum.rec.anlog 20 unit SQ 0900 11/08/19 11/11/19 History [Basaglar Kwikpen U-100] Insulin Regular, Human [Novolin R] 0 unit SQ ACHS 11/08/19 11/11/19 History Isosorbide Mononitrate 20 mg PO 0800,1600 11/08/19 11/11/19 History Mag Carb/Aluminum Hydrox/Algin 30 ml PO Q6HP PRN 11/08/19 11/11/19 History [Acid Gone Antacid Liquid] Ondansetron HCl [Zofran 4mg Tab*] 4 mg PO Q6HP PRN 11/08/19 11/11/19 History Sennosides/Docusate Sodium [Senna 2 tab PO DAILYP PRN 11/08/19 11/11/19 History Plus 8.6-50 mg Softgel] carvediloL [Carvedilol 12.5mg Tab] 12.5 mg PO BID 11/08/19 11/11/19 History guaiFENesin [Robafen] 10 ml PO Q6HP PRN 11/08/19 11/11/19 History Allergies Allergy/AdvReac Type Severity Reaction Status Date / Time No Known Allergies Allergy Verified 11/11/19 15:40 Exam Vital signs and Labs for Last 24 Hours: Temp Pulse Resp BP Pulse Ox 97.7 F 83 22 127/57 L 90 L 11/15/19 07:53 11/15/19 07:53 11/15/19 07:53 11/15/19 07:53 11/15/19 07:53 Laboratory Results - last 24 hr 11/13/19 20:54: POC Glucose 219 H 11/14/19 11:06: POC Glucose 281 H 11/14/19 16:47: POC Glucose 232 H 11/14/19 20:47: POC Glucose 280 H 11/15/19 05:40: WBC 8.8 D, RBC 3.34 L, Hgb 9.9 L, Hct 31.4 L, MCV 94.0, MCH 29.6, MCHC 31.5 L, RDW 15.0, Plt Count 161, MPV 10.5 H, Neut % (Auto) 83.4 H, Lymph % (Auto) 9.4 L, [place] % (Auto) 6.6, Eos % (Auto) 0.0 L, Baso % (Auto) 0.5, Neut # (Auto) 7.3, Lymph # (Auto) 0.8, [place] # (Auto) 0.6, Eos # (Auto) 0.0, Baso # (Auto) 0.1 11/15/19 05:40: Sodium 148 H, Potassium 4.4, Chloride 113 H, Carbon Dioxide 26, Anion Gap 13.4, BUN 60 H, Creatinine 1.99 H, Estimated Creat Clear 34, Estimated GFR 35 L, Est GFR ( Amer) 42 L, Glucose 245 H, Calcium 6.2 L 11/15/19 05:53: POC Glucose 227 H 11/15/19 08:45: WBC 8.7, RBC 3.48 L, Hgb 10.3 L, Hct 32.1 L, MCV 92.1, MCH 29.7, MCHC 32.3, RDW 15.1, Plt Count 151, MPV 11.6 H, Neut % (Auto) 81.0 H, Lymph % (Auto) 9.4 L, [place] % (Auto) 8.9, Eos % (Auto) 0.2, Baso % (Auto) 0.5, Neut # (Auto) 7.1, Lymph # (Auto) 0.8, [place] # (Auto) 0.8, Eos # (Auto) 0.0, Baso # (Auto) 0.0 11/15/19 08:45: Sodium 148 H, Potassium 4.3, Chloride 114 H, Carbon Dioxide 23, Anion Gap 15.3 H, BUN 61 H, Creatinine 2.15 H, Estimated Creat Clear 32, Estimated GFR 32 L, Est GFR ( Amer) 39 L, Glucose 251 H, Calcium 6.4 L I & O for Last 24 hours: Intake & Output 11/12/19 11/13/19 11/14/19 11/15/19 23:59 23:59 23:59 23:59 Intake Total 1500 / 1500 2292 / 2292 965 / 965 861 / 861 Output Total 1025 / 1475 1475 / 1475 750 / 900 800 / 800 Balance 475 / 25 817 / 817 215 / 65 61 / 61 Weight 295 lb 1 oz 297 lb 9 oz 296 lb 6 oz 299 lb 1 oz - Constitutional mild distress, morbidly obese, cooperative Internal Medicine - CN: Reslt - Labs CBC & Chem 7: 11/15/19 08:45 11/15/19 08:45 Labs: Short CBC 11/15/19 11/15/19 Range/Units 05:40 08:45 WBC 8.8 D 8.7 (4.8-10.8) K/mm3 Hgb 9.9 L 10.3 L (14.1-18.0) g/dL Hct 31.4 L 32.1 L (42.0-52.0) % Plt Count 161 151 (142-424) K/mm3 BMP 11/15/19 11/15/19 05:40 08:45 Sodium 148 H 148 H Potassium 4.4 4.3 Chloride 113 H 114 H Carbon Dioxide 26 23 BUN 60 H 61 H Creatinine 1.99 H 2.15 H Glucose 245 H 251 H Calcium 6.2 L 6.4 L - ABG Interpretation ABG results: 11/08/19 11/08/19 11/09/19 11:55 20:48 08:41 ABG pH 7.42 7.42 7.33 L ABG pCO2 47.2 H 36.8 50.9 H ABG pO2 33.8 L 48.3 L 62.0 L ABG HCO3 29.8 H 23.2 26.4 H ABG Total CO2 31.2 H 24.4 28.0 H ABG O2 Saturation 57 L* 78 L* 87 L* ABG Base Excess 5.3 H -1.3 0.5 11/09/19 11/13/19 11:37 11:37 ABG pH 7.35 7.37 ABG pCO2 43.0 39.2 ABG pO2 105.7 H 50.4 L ABG HCO3 23.4 22.1 ABG Total CO2 24.7 23.3 ABG O2 Saturation 96 79 L* ABG Base Excess -2.2 -3.2 L Additional comments: Increasing consolidation in the right lower lung zone medially consistent with pneumonia and/or volume loss. Assessment and Plan (1) Sinus tachycardia Current visit: Yes Status: Acute Category: Medical Code(s): R00.0 - Tachycardia, unspecified (2) CKD (chronic kidney disease) stage 4, GFR 15-29 ml/min Current visit: Yes Status: Chronic Category: Medical Code(s): N18.4 - Chronic kidney disease, stage 4 (severe) (3) Diabetes Current visit: No Status: Chronic Qualifiers: Diabetes mellitus type: type 2 Diabetes mellitus penitentiary insulin use: with penitentiary use Diabetes mellitus complication status: with circulatory complication Diabetes mellitus complication detail: with other circulatory complications Qualified Code(s): E11.59 - Type 2 diabetes mellitus with other circulatory complications; Z79.4 - adjunct faculty for medical terminology (current) use of insulin Category: Medical Code(s): E11.9 - Type 2 diabetes mellitus without complications (4) HTN (hypertension) Current visit: No Status: Chronic Qualifiers: Hypertension type: essential hypertension Qualified Code(s): I10 - Essential (primary) hypertension Category: Medical Code(s): I10 - Essential (primary) hypertension (5) Influenza A Current visit: Yes Status: Acute Category: Medical Code(s): J10.1 - Influenza due to other identified influenza virus with other respiratory man ifestations (6) Respiratory failure with hypoxia Current visit: Yes Status: Acute Qualifiers: Chronicity: acute Qualified Code(s): J96.01 - Acute respiratory failure with hypoxia Category: Medical Code(s): J96.91 - Respiratory failure, unspecified with hypoxia Patient has obesity and probable restrictive lung defect with atelectasis. He appears to have pneumonia which is being treated. Patient is getting better and is sitting up in bed (7) Obesity Current visit: Yes Status: Acute Qualifiers: Obesity type: due to excess calories Obesity classification: adult class 3 (BMI >= 40) Serious obesity comorbidity presence: with serious comorbidity Body mass index: BMI 45.0-49.9 Qualified Code(s): E66.01 - Morbid (severe) obesity due to excess calories; Z68.42 - Body mass index (BMI) 45.0-49.9, adult Category: Medical Code(s): E66.9 - Obesity, unspecified (8) Obesity Current visit: Yes Status: Acute Category: Medical Code(s): E66.9 - Obesity, unspecified (9) HCAP (healthcare-associated pneumonia) Current visit: Yes Status: Acute Category: Medical Code(s): J18.9 - Pneumonia, unspecified organism Patient clinically is getting better his x-ray still shows infiltrate (10) Pickwickian syndrome Current visit: Yes Status: Acute Category: Medical Code(s): E66.2 - Morbid (severe) obesity with alveolar hypoventilation Patient has the body habitus for [place]. His CO2 does not appear to be elevated at the present time (11) Heart failure, diastolic, acute on chronic Current visit: Yes Status: Acute Category: Medical Code(s): I50.33 - Acute on chronic diastolic (congestive) heart failure (12) Aspiration pneumonia Current visit: Yes Status: Acute Category: Medical Code(s): J69.0 - Pneumonitis due to inhalation of food and vomit
--- NOTE | 2019-11-15 13:49 | Discharge Summary ---
General - General Admission date:: 11/08/19 Discharge date: 11/15/19 HPI HPI: this pt was transferred from [facility] -pt had change in mental status and resp sx atient is a poor historian. Brought in by ambulance from [facility]. Reported change in his general condition today. Generally weak, not as talkative as usual. Pulse ox 9091% by snf staff, but in the mid 80s by EMS. Patient complains of a sore throat. He thinks he has had a fever. Complains of abdominal pain. Denies vomiting or diarrhea. He has noted cough in the emergency room. Noted to have been at the [facility] office 4 days ago. He has anemia and was sent to surgery for colonoscopy. They sent him to [facility] office for cardiac clearance prior to procedure. He was found to be tachycardic with a heart rate in the 130s at the [facility] office. Carvedilol was increased. skilled nursing reports no change in his heart rate since then. The patient is noted to be diabetic. He has some sort of unspecified chronic cognitive impairment per snf staff. 1. DM, insulin treated 2. CKD, stage 3, followed by nephrology at A. Cr 2.6-3.0 with GFR 28-22, 10/2019 3. Chronic anemia 4. Obesity 5. Abnormal EKG with presumed old septal OR 6. Mental deficit 7. Hypertension A. Echo, 04/2019, normal LVEF without wall motion abnormalities or significant valve disease. Mild concentric LVH. Mild RVE with normal contractility. 8. Hyperlipidemia, on statin History of present illness: 59-year-old male from [facility] presented to the ER for evaluation. Reportedly has had some decrease in mental status, continued elevated heart rate despite increasing carvedilol therapy earlier this week and generalized malaise and aches. Patient is a an extremely poor historian. He does complain of a sore throat and has a persistent cough. During my exam the patient does have upper extremity tremors. EKG today is sinus tachycardia with questionable ST elevation in the V1 V2 leads with Q waves noted as well. Compared to previous EKGs and after discussion with Dr. Rowe, this is not felt to represent an acute ST elevation OR but rather early repolarization in the setting of an old septal OR. Initial troponin is normal. Of note patient does test positive for influenza A pt was admitted for resp support and ivf Hospital Course Hospital Course: Patient was admitted to hospital. Please see primary services daily notes for details of progress, but essentially patient was diagnosed with aspiration pneumonia, and also wrapped up therapy for influenza. He was placed on broad- spectrum IV antibiotics including aspiration pneumonia protocol. He was found to have evidence of recurrent aspiration and was recommended to follow a thickened liquid diet. Patient adamantly refuses, and is well aware of the risks of eating regular food however he is intractable and his desire not to follow recommended safer diet. Over the last couple of days has made nice improvement. He is able to sit up in a chair and is stable on oxygen. He will be transferred back to the snf to finish his usual care. Please note he does not need any further Tamiflu or antibiotic therapy. Should he develop fevers oral clindamycin therapy would be adequate for initial antibiotic coverage. Objective Vital signs: Temp Pulse Resp BP Pulse Ox 97.8 F 77 20 122/72 90 L 11/15/19 12:11/15/19 12:11/15/19 12:11/15/19 12:11/15/19 12:00 Narrative: Morbidly obese pickwickian appearing male up in a chair, seems somewhat cognitively impaired but is incredibly definitive that he "refuses" to follow any kind of dietary recommendation and will not "drink that liquid." Anterior lung draper are clear. Heart rate regular. Abdomen obese and soft. Extremity exam without significant edema or clubbing. Neurologically sluggish but overall intact with no symmetric deficits. Results Labs on day of discharge: Labs from last 24 hours 11/15/19 11/15/19 11/15/19 12: 12:00 08:45 WBC RBC Hgb Hct MCV MCH MCHC RDW Plt Count MPV Neut % (Auto) Lymph % (Auto) [place] % (Auto) Eos % (Auto) Baso % (Auto) Neut # (Auto) Lymph # (Auto) [place] # (Auto) Eos # (Auto) Baso # (Auto) Sodium 148 H Potassium 4.3 Chloride 114 H Carbon Dioxide 23 Anion Gap 15.3 H BUN 61 H Creatinine 2.15 H Estimated Creat Clear 32 Estimated GFR 32 L Est GFR ( Amer) 39 L Glucose 251 H POC Glucose 296 H Calcium 6.4 L Total Valproic Acid 54.0 11/15/19 11/15/19 11/15/19 08:45 05:53 05:40 WBC 8.7 RBC 3.48 L Hgb 10.3 L Hct 32.1 L MCV 92.1 MCH 29.7 MCHC 32.3 RDW 15.1 Plt Count 151 MPV 11.6 H Neut % (Auto) 81.0 H Lymph % (Auto) 9.4 L [place] % (Auto) 8.9 Eos % (Auto) 0.2 Baso % (Auto) 0.5 Neut # (Auto) 7.1 Lymph # (Auto) 0.8 [place] # (Auto) 0.8 Eos # (Auto) 0.0 Baso # (Auto) 0.0 Sodium 148 H Potassium 4.4 Chloride 113 H Carbon Dioxide 26 Anion Gap 13.4 BUN 60 H Creatinine 1.99 H Estimated Creat Clear 34 Estimated GFR 35 L Est GFR ( Amer) 42 L Glucose 245 H POC Glucose 227 H Calcium 6.2 L Total Valproic Acid 11/15/19 11/14/19 11/14/19 05:40 20:47 16:47 WBC 8.8 D RBC 3.34 L Hgb 9.9 L Hct 31.4 L MCV 94.0 MCH 29.6 MCHC 31.5 L RDW 15.0 Plt Count 161 MPV 10.5 H Neut % (Auto) 83.4 H Lymph % (Auto) 9.4 L [place] % (Auto) 6.6 Eos % (Auto) 0.0 L Baso % (Auto) 0.5 Neut # (Auto) 7.3 Lymph # (Auto) 0.8 [place] # (Auto) 0.6 Eos # (Auto) 0.0 Baso # (Auto) 0.1 Sodium Potassium Chloride Carbon Dioxide Anion Gap BUN Creatinine Estimated Creat Clear Estimated GFR Est GFR ( Amer) Glucose POC Glucose 280 H 232 H Calcium Total Valproic Acid 11/13/19 20:54 WBC RBC Hgb Hct MCV MCH MCHC RDW Plt Count MPV Neut % (Auto) Lymph % (Auto) [place] % (Auto) Eos % (Auto) Baso % (Auto) Neut # (Auto) Lymph # (Auto) [place] # (Auto) Eos # (Auto) Baso # (Auto) Sodium Potassium Chloride Carbon Dioxide Anion Gap BUN Creatinine Estimated Creat Clear Estimated GFR Est GFR ( Amer) Glucose POC Glucose 219 H Calcium Total Valproic Acid Preliminary micro results at discharge 11/08/19 10:50 Blood Culture - Preliminary Blood Staphylococcus hominis DS: Diagnosis - Discharge Diagnosis (1) Sinus tachycardia Status: Resolved (2) CKD (chronic kidney disease) stage 4, GFR 15-29 ml/min Status: Chronic (3) Diabetes Status: Chronic (4) HTN (hypertension) Status: Chronic (5) Influenza A Status: Resolved (6) Respiratory failure with hypoxia Status: Chronic (7) Obesity Status: Chronic (8) Obesity Status: Chronic (9) HCAP (healthcare-associated pneumonia) Status: Resolved (10) Pickwickian syndrome Status: Resolved (11) Heart failure, diastolic, acute on chronic Status: Chronic (12) Aspiration pneumonia Status: Acute Discharge Plan - Patient Discharge Instructions ACTIVITY: Continue current activity DIET: continue same diet Patient Instructions: How to Avoid a Cold or Flu, Influenza, DI for Respiratory Failure - Follow up Plan Follow up with: Fito Zavala MD [Primary Care Provider] - Disposition: er [facility] Home Medications: Home Medications Medication Instructions Recorded Confirmed Type atorvastatin 20 mg tablet 20 mg PO HS 10/27/18 11/11/19 History furosemide 40 mg tablet 40 mg PO DAILY 10/27/18 11/11/19 History levothyroxine 100 mcg tablet 100 mcg PO DAILY 10/27/18 11/11/19 History risperidone 1 mg tablet 1 mg PO BID 10/27/18 11/11/19 History cholecalciferol (vitamin D3) 25 1,000 unit PO DAILY 04/08/19 11/11/19 History mcg (1,000 unit) capsule allopurinol 100 mg tablet 100 mg PO DAILY 11/04/19 11/11/19 History loratadine 10 mg tablet 10 mg PO DAILY 11/04/19 11/11/19 History polysaccharide iron complex 150 mg 150 mg PO BID 11/04/19 11/11/19 History iron capsule valproic acid (as sodium salt) 250 25 ml PO BID 11/04/19 11/11/19 History mg/5 mL (5 mL) oral solution Acetaminophen [Tylenol 500mg 500 mg PO Q4HP PRN 11/08/19 11/11/19 History tablet] Calcium Acetate 667 mg PO TIDWM 11/08/19 11/11/19 History Fluticasone Propionate [Flovent 1 spray IH DAILY 11/08/19 11/11/19 History Diskus] Insulin Glargine,Hum.rec.anlog 20 unit SQ 0900 11/08/19 11/11/19 History [Basaglar Kwikpen U-100] Insulin Regular, Human [Novolin R] 0 unit SQ ACHS 11/08/19 11/11/19 History Isosorbide Mononitrate 20 mg PO 0800,1600 11/08/19 11/11/19 History Mag Carb/Aluminum Hydrox/Algin 30 ml PO Q6HP PRN 11/08/19 11/11/19 History [Acid Gone Antacid Liquid] Ondansetron HCl [Zofran 4mg Tab*] 4 mg PO Q6HP PRN 11/08/19 11/11/19 History Sennosides/Docusate Sodium [Senna 2 tab PO DAILYP PRN 11/08/19 11/11/19 History Plus 8.6-50 mg Softgel] carvediloL [Carvedilol 12.5mg Tab] 12.5 mg PO BID 11/08/19 11/11/19 History guaiFENesin [Robafen] 10 ml PO Q6HP PRN 11/08/19 11/11/19 History Prescriptions/Medication Reconciliation: Continued atorvastatin 20 mg tablet 20 mg PO HS risperidone 1 mg tablet 1 mg PO BID levothyroxine 100 mcg tablet 100 mcg PO DAILY allopurinol 100 mg tablet 100 mg PO DAILY loratadine 10 mg tablet 10 mg PO DAILY polysaccharide iron complex 150 mg iron capsule 150 mg PO BID furosemide 40 mg tablet 40 mg PO DAILY cholecalciferol (vitamin D3) 25 mcg (1,000 unit) capsule 1,000 unit PO DAILY valproic acid (as sodium salt) 250 mg/5 mL (5 mL) oral solution 25 ml PO BID Calcium Acetate 667 mg PO TIDWM guaiFENesin [Robafen] 10 ml PO Q6HP PRN PRN Reason: Cough Insulin Regular, Human [Novolin R] 0 unit SQ ACHS Ondansetron HCl [Zofran 4mg Tab*] 4 mg PO Q6HP PRN PRN Reason: Nausea Acetaminophen [Tylenol 500mg tablet] 500 mg PO Q4HP PRN PRN Reason: PAIN/TEMP Fluticasone Propionate [Flovent Diskus] 1 spray IH DAILY Insulin Glargine,Hum.rec.anlog [Basaglar Kwikpen U-100] 20 unit SQ 0900 Isosorbide Mononitrate 20 mg PO 0800,1600 Mag Carb/Aluminum Hydrox/Algin [Acid Gone Antacid Liquid] 30 ml PO Q6HP PRN PRN Reason: GASTRIC UPSET Sennosides/Docusate Sodium [Senna Plus 8.6-50 mg Softgel] 2 tab PO DAILYP PRN PRN Reason: Constipation carvediloL [Carvedilol 12.5mg Tab] 12.5 mg PO BID - Problem Reconciliation Problems Reviewed?: Yes
== END 2019-11-15 16:05 | disposition home or self-care (01) | DRG 193 ==
LOC: ER 11:12 → 2ND 13:31
PROVIDERS: ADMIT Emergency Medicine; ATTEND Emergency Medicine
CPT/HCPCS: Q9957

== ENCOUNTER 2020-01-15 12:55 | Outpatient (CLI) | payer MEDICARE, MEDICAID, SELFPAY ==
[2020-01-15 13:33] VITALS: BP 142/80; PULSE 111; RESP 22; TEMP 36.4; O2SAT 96
[2020-01-15 14:03] VITALS: BP 139/79; PULSE 91; RESP 22; O2SAT 95
[2020-01-15 14:17] VITALS: BP 125/58; PULSE 83; RESP 18; O2SAT 96
== END 2020-01-15 14:17 | disposition home or self-care (01) ==
LOC: INF 13:31
DX: N18.9 Chronic kidney disease, unspecified (principal); N18.3 Chronic kidney disease, stage 3 (moderate); D63.1 Anemia in chronic kidney disease; E11.40 Type 2 diabetes mellitus with diabetic neuropathy, unspecified; Z79.4 Long term (current) use of insulin
CPT/HCPCS: 96365; J1439

== ENCOUNTER 2020-01-22 12:30 | Outpatient (CLI) | payer MEDICARE, MEDICAID, SELFPAY ==
[2020-01-22 13:20] VITALS: BP 123/70; PULSE 99; RESP 18; TEMP 36.6; O2SAT 89
[2020-01-22 13:50] VITALS: BP 123/70; PULSE 99; RESP 18
== END 2020-01-22 14:00 | disposition home or self-care (01) ==
LOC: INF 12:36
DX: N18.9 Chronic kidney disease, unspecified (principal); N18.3 Chronic kidney disease, stage 3 (moderate); D63.1 Anemia in chronic kidney disease; M10.9 Gout, unspecified
CPT/HCPCS: 96365; J1439

== ENCOUNTER → 2020-12-24 10:43 | Outpatient (CLI) | payer MEDICARE, MEDICAID, SELFPAY ==
--- NOTE | 2020-12-24 10:48 | CA_ITS ---
APPROVED REPORT EXAM: Comprehensive 2D, Doppler, and color-flow Echocardiogram Paramedic Rn: Fanny Goins RDCS Ht: 5 ft 6 in Wt: 307lbs BSA: 2.40 BP: 146/74 mmHg Indications: SOA,MORBID OBESITY,ABN EKG,DM,EDEMA,CHF POOR ACOUSTIC WINDOWS SECONDARY TO BODY HABITUS 2D Dimensions LVOT 2.00 cm (M/F) 1.5-2.5 M-Mode Dimensions RVDd 2.46 cm (0.9-2.6) LVDd 4.70 cm (3.5-5.7) LVDs 3.85 cm (3.5-5.7) IVSd 1.28 cm (0.6-1.1) PWd 1.01 cm (0.6-1.1) EF (Teich) 37.60% FS 18.10% EDV (Teich) 102.40 mL ESV (Teich) 63.90 mL Tricuspid Valve TR P. Velocity 160.00 cm/s RAP Estimate 10.00 mmHg RVSP 20.20 mmHg Left Ventricle Technically difficult study because of the patient fact in poor acoustic windows. Left atrium is mildly enlarged, left ventricle is normal size, mild concentric left ventricular hypertrophy, visually estimated ejection fraction 50% with no regional wall motion abnormality, diastolic parameters are inconclusive. Right Ventricle Right atrium and right ventricle are mildly enlarged with normal contractility. Aortic Valve Aortic valve is minimally thickened and fibrosed. There is no aortic stenosis or aortic insufficiency. Mitral Valve Mitral valve leaflets are minimally thickened, there is no mitral stenosis, there is trace mitral regurgitation. Tricuspid Valve Tricuspid grossly normal, there is trace tricuspid regurgitation. Pulmonic Valve Pulmonic valve is poorly visualized. Great Vessels Aortic root is normal size. Pericardium No significant pericardial effusion noted. Conclusion 1. Technically difficult study because of the patient factors and poor acoustic windows. 2. Mild biatrial enlargement, normal left ventricular size, mild concentric left ventricular hypertrophy, visually estimated ejection fraction 50% with no regional wall motion abnormality, diastolic parameters are inconclusive. 3. Mildly enlarged right ventricle with normal contractility. 4. Mild mitral and tricuspid regurgitation. 5. No significant pericardial effusion noted. Electronically signed by : Jd Jones, 12/24/2020 15:56:03
== END ==
PROVIDERS: PCP Emergency Medicine; Visit Provider Nurse Practitioner Family
DX: E11.59 Type 2 diabetes mellitus with other circulatory complications (principal); E78.2 Mixed hyperlipidemia; I50.32 Chronic diastolic (congestive) heart failure; R06.00 Dyspnea, unspecified; R60.0 Localized edema; R94.31 Abnormal electrocardiogram [ECG] [EKG]; I11.0 Hypertensive heart disease with heart failure; Z79.4 Long term (current) use of insulin
CPT/HCPCS: 93306

== ENCOUNTER 2021-03-12 14:18 | Inpatient (IN) | payer MEDICARE, MEDICAID, SELFPAY ==
[2021-03-12] VITALS (12 sets, daily range): BP systolic 92–153; BP diastolic 62–85; PULSE 102–121; RESP 18–28; TEMP 36.6–37.2; O2SAT 92–97; BMI 45.4; BMI 45.8
--- NOTE | 2021-03-12 14:14 | ECG_ITS ---
APPROVED REPORT Exam: Resting ECG HR:114 bpm ECG Measurements Heart Rate 114 AXES [place] 120 P 56 QRSd 68 QRS -44 QT 328 T 81 QTc 452 Conclusion Sinus tachycardia with premature atrial complexes Left axis deviation Abnormal ECG Electronically signed by : Isaiha Marcial, 03/14/2021 08:54:42
--- NOTE | 2021-03-12 14:20 | XR_ITS ---
PROCEDURE: XR CHEST PORTABLE CLINICAL HISTORY: SOB COMPARISON: CR XR CHEST PORTABLE from 11/08/2019 CR XR CHEST PORTABLE from 11/09/2019 CR XR CHEST PORTABLE from 11/12/[address] CHEST WO CON from 11/15/2019 FINDINGS: There is cardiomegaly with mild pulmonary venous congestion suggesting CHF. The the lung bases are under penetrated with increased density noted in the lower lung zones.. Previously noted area of consolidation in the right lower lobe is no longer apparent. No acute bony abnormalities. IMPRESSION: Mild CHF. The lung bases are under penetrated secondary to the poor inspiration and patient body habitus. Cannot exclude the possibility of pathology in the lung bases based on this exam. Underlying pneumonia or atelectasis is not excluded. Dictated by: Thong Edmondson MD 03/12/2021 14:55 Thong Edmondson MD in [facility] 03/12/2021 14:55
--- NOTE | 2021-03-12 14:22 | HMH.EDGENADL ---
ED Disposition Clinical Impression: Congestive heart failure Qualifiers: Heart failure type: unspecified Heart failure chronicity: acute on chronic Qualified Code(s): I50.9 - Heart failure, unspecified Disposition: Admitted As Inpatient Condition on Discharge: Serious Referrals: Fito Zavala MD [Primary Care Provider] - - Critical Care Critical Care Time: No Attestation: On , the high probability of a clinically significant, sudden or life threatening deterioration of the following system(s) required my full and direct attention, intervention and personal management. The time I documented below is in addition to time spent performing reported procedures but includes the following listed in this critical care notation. Medical Decision Making - Medical Records Medical records reviewed: Yes: I reviewed the patient's medical records. MR Comment: Reviewed most recent echocardiogram report, see below. Reviewed CT scan of chest performed in November which showed bilateral pneumonia, see below. Reviewed most recent routine cardiology outpatient visit 03/03/2021. Heart rate 111 at the time of that visit. Has a prior history of sinus tachycardia documented multiple times. - Huang Inquiry Pt receiving controlled substance: No Vital Signs: 03/12/21 14:19 03/12/21 14:31 03/12/21 15:01 Temperature 98.3 F Temperature Source Oral Pulse Rate 102 H 107 H Pulse Rate [Radial] 110 H Respiratory Rate 26 H 26 H 22 Blood Pressure 119/70 92/69 L Blood Pressure [Right Arm] 131/78 Blood Pressure Mean 85 76 Blood Pressure Mean [Right Arm] 95 Blood Pressure Position Blood Pressure Position [Right Arm] Sitting 02 Sat by Pulse Oximetry 93 L 94 L 94 L Oxygen Delivery Method Nasal Cannula Oxygen Flow Rate (LPM) 2 03/12/21 15:06 03/12/21 16:45 Temperature Temperature Source Pulse Rate 105 H Pulse Rate [Radial] Respiratory Rate 28 H Blood Pressure 105/72 L 108/70 L Blood Pressure [Right Arm] Blood Pressure Mean 79 Blood Pressure Mean [Right Arm] Blood Pressure Position Sitting Blood Pressure Position [Right Arm] 02 Sat by Pulse Oximetry 94 L Oxygen Delivery Method Room Air Oxygen Flow Rate (LPM) - Lab Data Lab Results 03/12/21 14:40: Urine Color Yellow, Urine Appearance Clear, Urine pH 7.0, Ur Specific [place] 1.010, Urine Protein Negative, Urine Glucose (UA) Negative, Urine Ketones Negative, Urine Blood Negative, Urine Nitrate Negative, Urine Bilirubin Negative, Urine Urobilinogen 0.2, Ur Leukocyte Esterase Negative, Urine RBC None, Urine WBC None, Ur Squamous Epith Cells None, Urine Bacteria None 03/12/21 14:58: WBC 9.0, RBC 3.26 L, Hgb 10.0 L, Hct 30.8 L, MCV 94.5 H, MCH 30.6, MCHC 32.4, RDW 14.9, Plt Count 190, MPV 9.6, Neut % (Auto) 58.4, Lymph % (Auto) 27.1, [place] % (Auto) 8.6, Eos % (Auto) 5.4, Baso % (Auto) 0.4, Neut # (Auto) 5.3, Lymph # (Auto) 2.4, [place] # (Auto) 0.8, Eos # (Auto) 0.5 H, Baso # (Auto) 0.0 03/12/21 14:58: Sodium 143, Potassium 4.7, Chloride 101, Carbon Dioxide 34 H, Anion Gap 12.7, BUN 50 H, Creatinine 3.00 H, Estimated Creat Clear 27, Estimated GFR 22 L, Est GFR ( Amer) 26 L, Glucose 80, Calcium 7.1 L, Total Bilirubin 0.2, AST 17, ALT 8 L, Alkaline Phosphatase 77, Total Protein 6.9, Albumin 3.5, Globulin 3.4 H, Albumin/Globulin Ratio 1.0 L 03/12/21 14:58: Troponin I < 0.01, NT-Pro-B Natriuret Pep 1080 H 03/12/21 14:58: Chlamy pneumoniae PCR Not detected, Adenovirus (PCR) Not detected, B. pertussis DNA (PCR) Not detected, Coronavirus OC43 (PCR) Not detected, Coronavirus HKU1 (PCR) Not detected, Coronavirus 229E (PCR) Not detected, SARS-CoV-2 (PCR) Not detected, Coronavirus NL63 (PCR) Not detected, Human Metapneumovir PCR Not detected, Influenza A (H1) PCR Not detected, Influ A (H1N1/09) PCR Not detected, Influenza A (H3) PCR Not detected, Influenza Type A (PCR) Not detected, Influenza Type B (PCR) Not detected, M. pneumoniae (PCR) Not detected, Parainfluenza 1 (PC
[2021-03-12 15:06] LABS: Microscopic, Urine URINE MICROSCOPIC (MICROSCOPIC)
[2021-03-12 15:08] LABS: Appearance,Urine CLEAR (Clear); Bilirubin,Urine Negative (Negative); Blood, Urine Negative (Negative); Color,Urine YELLOW (Yellow); Glucose,Urine (UA) Negative (Negative); Ketones,Urine Negative (Negative); Leukocyte Esterase,Urine Negative (Negative); Nitrate,Urine Negative (Negative); Protein,Urine Negative (Negative); Urobilinogen,Urine 0.2 EU/dl (0.2)
--- NOTE | 2021-03-12 15:08 | CT_ITS ---
PROCEDURE: CT CHEST WO CON CLINICAL INDICATION: cough, r/o pneumonia COMPARISON: CT CT CHEST WO CON from 11/15/2019 CR XR CHEST PORTABLE from 03/12/2021 TECHNIQUE: Axial images obtained with sagittal and coronal reformats. All CT scans at the facility use one or more dose reduction, viz: automated exposure control, ma/kV adjustment per patient size (including targeted exams where dose is matched to indication, i.e. head), or iterative reconstruction technique. FINDINGS: HEART AND MEDIASTINAL STRUCTURES: No mediastinal or hilar mass. There is minimal thickening of the pericardium posteriorly. Coronary artery calcifications are present. There is mild prominence of the hilar vessels with cardiomegaly. LUNGS AND PLEURAL SPACES: There are low lung volumes with mild atelectatic changes. There is mosaic attenuation in the upper lobes and perihilar regions. Mild atelectasis present in the left lower lobe. No lobar consolidation or collapse. There is thickening of the left major fissure with minimal Sherry fissural atelectatic change. No effusions. BONY STRUCTURES: Mild degenerative changes in the thoracic spine. UPPER ABDOMEN: Cholelithiasis ADDITIONAL FINDINGS: No other significant abnormalities. IMPRESSION: Cardiomegaly with mild prominence of the perihilar vessels suggesting mild CHF. There is faint mosaic attenuation within the upper lobes. This could be seen with mild pulmonary edema and CHF. Obstructive airway disease or infection/inflammation could also cause the mosaic attenuation. Dictated by: Thong Edmondson MD 03/12/2021 16:18 Thong Edmondson MD in [facility] 03/12/2021 16:18
[2021-03-12 15:12] LABS: Adenovirus,PCR Not Detected (NotDetected); Bordetella Pertussis Not Detected (NotDetected); Chlamydophila Pneumoniae, PCR Not Detected (NotDetected); Coronavirus 19, PCR Not Detected (NotDetected); Coronavirus 229E Not Detected (NotDetected); Coronavirus NL63 Not Detected (NotDetected); Coronavirus OC43 Not Detected (NotDetected); Coronovirus HKU1,PCR Not Detected (NotDetected); Human Metapneumovirus Not Detected (NotDetected); Influenza A, PCR Not Detected (NotDetected); Influenza AH1, 2009 Not Detected (NotDetected); Influenza AH1, PCR Not Detected (NotDetected); Influenza AH3,PCR Not Detected (NotDetected); Influenza B, PCR Not Detected (NotDetected); Mycoplasma Pneumoniae, PCR Not Detected (NotDetected); Parainfluenza 1, PCR Not Detected (NotDetected); Parainfluenza 2, PCR Not Detected (NotDetected); Parainfluenza 3, PCR Not Detected (NotDetected); Parainfluenza 4, PCR Not Detected (NotDetected); Respiratory Syncytial Virus Not Detected (NotDetected); Rhinovirus/Enterovirus Not Detected (NotDetected)
[2021-03-12 15:14] LABS: Basophils % 0.4 % (0.1-2.0); Eosinophils # 0.5 K/mm3 (0.0-0.4); Eosinophils % 5.4 % (0.1-12.0); Hematocrit 30.8 % (42.0-52.0); Lymphocytes # 2.4 K/mm3 (0.7-4.5); Lymphocytes % 27.1 % (10-50); Mean Corpuscular HGB Conc 32.4 g/dL (31.8-35.4); Mean Corpuscular Hemoglobin 30.6 pg (27.0-31.2); Mean Corpuscular Volume 94.5 fl (80-94); Mean Platelet Volume 9.6 fl (7.4-10.4); Monocytes # 0.8 K/mm3 (0.1-1.0); Monocytes % 8.6 % (1.7-9.3); Neutrophils # 5.3 K/mm3 (1.8-7.8); Neutrophils % 58.4 % (37.0-80.0); Platelet Count 190 K/mm3 (142-424); Red Blood Count 3.26 M/mm3 (4.60-6.20); Red Cell Distribution Width 14.9 % (11.5-17.5)
[2021-03-12 15:15] LABS: Chloride 101 mmol/L (98-107); Potassium 4.7 mmoL/L (3.5-5.1); Sodium 143 mmol/L (136-145)
[2021-03-12 15:18] LABS: Alanine Aminotransferase 8 U/L (12-78); Albumin Level 3.5 g/dl (3.5-5.0); Alkaline Phosphatase 77 U/L (38-126); Anion Gap 12.7 mEq/L (5-15); Aspartate Amino Transferase 17 U/L (17-59); Bilirubin,Total 0.2 mg/dl (0.2-1.3); Blood Urea Nitrogen 50 mg/dl (9-20); Calcium 7.1 mg/dl (8.4-10.2); Carbon Dioxide 34 mmol/L (22.0-30.0); Creatinine Clearance Estimated 27 mL/min (50-200); Estimated Glomerular Filt Rate 22 ml/min (>60); GFR (African American) 26 ML/MIN (>60); Globulin 3.4 g/dL (1.3-3.2); Glucose 80 mg/dl (74-100); Lactic Acid 1.1 mmol/L (0.7-2.1); Total Protein,Serum 6.9 g/dl (6.3-8.2)
[2021-03-12 15:27] LABS: NT Pro Brain Natriuretic Pep. 1080 pg/mL (0-125)
[2021-03-12 15:31] LABS: Troponin I < 0.01 ng/ml (0.00-0.034)
--- NOTE | 2021-03-12 16:41 | PC.NURSE ---
Dr. Zavala pagesegun
--- NOTE | 2021-03-12 16:47 | PC.NURSE ---
speaking with Dr. Zavala
--- NOTE | 2021-03-12 16:59 | PC.NURSE ---
nanny/household manager notified of admission
--- NOTE | 2021-03-12 17:15 | PC.NURSE ---
ATTEMPTED TO CALL REPORT. NO ANSWER.
--- NOTE | 2021-03-12 17:27 | PC.NURSE ---
REPORT CALLED TO FLOOR.
--- NOTE | 2021-03-12 17:27 | PC.NURSE ---
DIET TRAY GIVEN
--- NOTE | 2021-03-12 17:53 | DIET.NUTRFU ---
Addendum entered by Iris Martínez 03/15/21 14:32: PO intakes 50%, BG moderate- avg. 150, weight stable. He continues on ADA/2g Na diet with a 1.5-2L fluid restriction. Pt openly noncompliant with nutrition related recommendations at [facility], has high sodium/sugar outside food brought in daily. Pt educated that it is very important to restrict sodium and fluid at this time as well as for chronic conditions. He was not communicative t/o attempt diet edu, he does appear very fatigued, will f/u to reassess openness. Written diet edu provided and pt encouraged to review and f/u through OP counseling. Original Note: Pt admit for CHF. ADA/2g Na diet with moderate soft modifications for ease of eating with SOA given. Per [facility] pt is on diabetic/no added salt diet there with regular consistency and a 1.5-2L per day fluid restriction. Communicated fluid restriction at [facility] with RNMD to evaluate indication. Of note pt does have hx dysphagia and aspiration PNA, recommend close monitoring and bedside swallow eval as indicated. Will monitor and alter nutritional care plan as indicated.
[2021-03-12 18:06] LABS: Troponin I < 0.01 ng/ml (0.00-0.034)
--- NOTE | 2021-03-12 19:37 | HMH.HP ---
*Admission Date: 03/12/21 *Chief complaint: chf *History of present illness: 60 yr old male presented to ed bad cough that started today. Pt brought in by ambulance from [facility]. He denies shortness of breath, chest pain, fever, sputum production, or hemoptysis. Denies leg pain or any change in chronic swelling of the legs. Pt states is always on oxygen at the [facility], he does not know how many liters. Pt has chronic kidney failure. per ed note reported to have a low blood pressure and tachycardia at the [facility]. pt admitted for CHF and cardiology work up. [facility] History I have reviewed the patient's past medical history: Yes Medical History: Reports:: Arrhythmia, Congestive Heart Failure, Diabetes Mellitus Type 1, Diabetes Mellitus Type 2, Hyperlipidemia, Hypertension, Renal Disease, Renal Insufficiency Denies:: Cancer, MRSA *Have you ever received a pneumonia vaccine?: Yes *Have you received a flu vaccine this season?: Yes Other Medical History: Reports: Anemia, Hypothyroidism, Thyroid Disease, Other Other Surgeries: Yes: No Previous Surgery, Tubal Ligation Amputation: No Fractures: Yes (left trocanter fx) - *Social History Smoking Status: Never smoker Alcohol Intake: never Substance Use Type: denies use *Occupational Status:: disabled Housing: [facility] Household Members: other *Travel in the last 8 weeks: None Family Hx:: Unable to obtain Review of Systems - Review of Systems Review of systems:: pertinent systems reviewed and negative unless documented below - Constitutional Denies body ache(s), Denies fatigue, Denies fever(s), Denies malaise - Eyes Denies change in vision - ENT Denies bleeding gums - *Cardiovascular Denies chest pain at rest, Denies excessive sweating - *Respiratory Reports cough, Denies chest congestion, Denies shortness of breath, Denies excessive phlegm production - *Gastrointestinal Denies abdominal pain, Denies bloating - *Genitourinary Denies difficulty urinating - *Musculoskeletal Denies joint pain - Integumentary/Breasts Denies rash - *Neurologic Denies abnormal hearing, Denies radiating pain - Psychiatric Denies lack of enjoyment - Endocrine Denies excessive sweating - Hematologic/Lymphatic Denies easy bruising Meds Home Medications Medication Instructions Recorded Confirmed Type atorvastatin 20 mg tablet 20 mg PO HS 10/27/18 03/12/21 History levothyroxine 100 mcg tablet 100 mcg PO DAILY 10/27/18 03/12/21 History cholecalciferol (vitamin D3) 25 2,000 unit PO DAILY 04/08/19 03/12/21 History mcg (1,000 unit) capsule allopurinol 100 mg tablet 100 mg PO DAILY 11/04/19 03/12/21 History loratadine 10 mg tablet 10 mg PO DAILY 11/04/19 03/12/21 History valproic acid (as sodium salt) 250 25 ml PO BID 11/04/19 03/12/21 History mg/5 mL (5 mL) oral solution Acetaminophen [Tylenol 500mg 500 mg PO Q4HP PRN 11/08/19 03/12/21 History tablet] Calcium Acetate 667 mg PO TIDWM 11/08/19 03/12/21 History Fluticasone Propionate [Flovent 1 spray IH DAILY 11/08/19 03/12/21 History Diskus] Isosorbide Mononitrate 20 mg PO 0800,1600 11/08/19 03/12/21 History Mag Carb/Aluminum Hydrox/Algin 30 ml PO Q6HP PRN 11/08/19 03/12/21 History [Acid Gone Antacid Liquid] Sennosides/Docusate Sodium [Senna 2 tab PO DAILYP PRN 11/08/19 03/12/21 History Plus 8.6-50 mg Softgel] guaiFENesin [Robafen] 10 ml PO Q6HP PRN 11/08/19 03/12/21 History ondansetron HCL [Zofran 4mg Tab*] 4 mg PO Q6HP PRN 11/08/19 03/12/21 History Epoetin Jesus [Procrit] 10,000 unit SQ WEEKLY 01/15/20 03/12/21 History risperidone 1 mg tablet 3 mg PO HS tab 02/03/21 03/12/21 History Furosemide [Lasix 40mg tab] 40 mg PO DAILY 03/12/21 03/12/21 History Insulin Glargine,Hum.rec.anlog 15 unit SQ DAILY 03/12/21 03/12/21 History [Basaglar Kwikpen U-100] Insulin Regular, Human [Novolin R 100 units SQ DIRECTED 03/12/21 03/12/21 History Flexpen] Metoprolol Tartrate [Lopressor 100 1
--- NOTE | 2021-03-12 20:11 | PC.NURSE ---
Called and spoke with [place] in request for med mar and verified pt is a full code since pt is a poor historian. Spoke with [employer] and she stated nsg home stated pt was on a 1.5- 2 L fluid restriction.
--- NOTE | 2021-03-12 20:29 | PC.NURSE ---
reduced o2 to 2lpm n/c
[2021-03-12 21:26] LABS: POC Glucose,Bedside 218 (70-110)
[2021-03-13] VITALS: BP 107/65; PULSE 82; RESP 18; TEMP 36.9; O2SAT 94
[2021-03-13 03:47] VITALS: BP 118/71; PULSE 83; RESP 18; TEMP 36.9; O2SAT 93
[2021-03-13 05:00] VITALS: BMI 45.6
[2021-03-13 05:05] LABS: POC Glucose,Bedside 69 (70-110)
[2021-03-13 06:46] LABS: Basophils % 0.3 % (0.1-2.0); Eosinophils # 0.5 K/mm3 (0.0-0.4); Eosinophils % 5.7 % (0.1-12.0); Hematocrit 28.4 % (42.0-52.0); Hemoglobin 9.2 g/dL (14.1-18.0); Lymphocytes % 23.6 % (10-50); Mean Corpuscular HGB Conc 32.3 g/dL (31.8-35.4); Mean Corpuscular Volume 95.9 fl (80-94); Mean Platelet Volume 9.8 fl (7.4-10.4); Monocytes # 0.8 K/mm3 (0.1-1.0); Monocytes % 9.6 % (1.7-9.3); Neutrophils # 5.1 K/mm3 (1.8-7.8); Neutrophils % 60.8 % (37.0-80.0); Platelet Count 173 K/mm3 (142-424); Red Blood Count 2.96 M/mm3 (4.60-6.20); Red Cell Distribution Width 15.2 % (11.5-17.5); White Blood Count 8.4 K/mm3 (4.8-10.8)
[2021-03-13 07:03] LABS: Chloride 101 mmol/L (98-107); Potassium 4.2 mmoL/L (3.5-5.1); Sodium 142 mmol/L (136-145)
[2021-03-13 07:06] LABS: Blood Urea Nitrogen 52 mg/dl (9-20); Creatinine Clearance Estimated 28 mL/min (50-200); Estimated Glomerular Filt Rate 22 ml/min (>60); GFR (African American) 26 ML/MIN (>60)
[2021-03-13 07:07] LABS: Anion Gap 10.2 mEq/L (5-15); Carbon Dioxide 35 mmol/L (22.0-30.0); Glucose 92 mg/dl (74-100)
[2021-03-13 07:28] LABS: Calcium 6.6 mg/dl (8.4-10.2)
[2021-03-13 07:46] VITALS: BP 103/44; PULSE 101; RESP 17; TEMP 36.9; O2SAT 95
[2021-03-13 08:00] VITALS: O2SAT 96
--- NOTE | 2021-03-13 08:51 | HMH.ACPN2 ---
Internal Medicine - PN: Subj *Date: 03/14/21 *Time: 07:27 Interval history: doing better - no chest pain Exam Vital signs and Labs for Last 24 Hours: Temp Pulse Resp BP Pulse Ox 98.4 F 101 H 17 103/44 L 96 03/13/21 07:46 03/13/21 07:46 03/13/21 07:46 03/13/21 07:46 03/13/21 08:00 Laboratory Results - last 24 hr 03/12/21 14:40: Urine Color Yellow, Urine Appearance Clear, Urine pH 7.0, Ur Specific Buena 1.010, Urine Protein Negative, Urine Glucose (UA) Negative, Urine Ketones Negative, Urine Blood Negative, Urine Nitrate Negative, Urine Bilirubin Negative, Urine Urobilinogen 0.2, Ur Leukocyte Esterase Negative, Urine RBC None, Urine WBC None, Ur Squamous Epith Cells None, Urine Bacteria None 03/12/21 14:58: WBC 9.0, RBC 3.26 L, Hgb 10.0 L, Hct 30.8 L, MCV 94.5 H, MCH 30.6, MCHC 32.4, RDW 14.9, Plt Count 190, MPV 9.6, Neut % (Auto) 58.4, Lymph % (Auto) 27.1, [place] % (Auto) 8.6, Eos % (Auto) 5.4, Baso % (Auto) 0.4, Neut # (Auto) 5.3, Lymph # (Auto) 2.4, [place] # (Auto) 0.8, Eos # (Auto) 0.5 H, Baso # (Auto) 0.0 03/12/21 14:58: Sodium 143, Potassium 4.7, Chloride 101, Carbon Dioxide 34 H, Anion Gap 12.7, BUN 50 H, Creatinine 3.00 H, Estimated Creat Clear 27, Estimated GFR 22 L, Est GFR ( Amer) 26 L, Glucose 80, Calcium 7.1 L, Total Bilirubin 0.2, AST 17, ALT 8 L, Alkaline Phosphatase 77, Total Protein 6.9, Albumin 3.5, Globulin 3.4 H, Albumin/Globulin Ratio 1.0 L 03/12/21 14:58: Troponin I < 0.01, NT-Pro-B Natriuret Pep 1080 H 03/12/21 14:58: Chlamy pneumoniae PCR Not detected, Adenovirus (PCR) Not detected, B. pertussis DNA (PCR) Not detected, Coronavirus OC43 (PCR) Not detected, Coronavirus HKU1 (PCR) Not detected, Coronavirus 229E (PCR) Not detected, SARS-CoV-2 (PCR) Not detected, Coronavirus NL63 (PCR) Not detected, Human Metapneumovir PCR Not detected, Influenza A (H1) PCR Not detected, Influ A (H1N1/09) PCR Not detected, Influenza A (H3) PCR Not detected, Influenza Type A (PCR) Not detected, Influenza Type B (PCR) Not detected, M. pneumoniae (PCR) Not detected, Parainfluenza 1 (PCR) Not detected, Parainfluenza 2 (PCR) Not detected, Parainfluenza 3 (PCR) Not detected, Parainfluenza 4 (PCR) Not detected, RSV (PCR) Not detected, Entero/Rhino (PCR) Not detected 03/12/21 14:58: Lactate 1.1 03/12/21 17:31: Troponin I < 0.01 03/12/21 20:44: POC Glucose 218 H 03/13/21 04:56: POC Glucose 69 L 03/13/21 06:17: WBC 8.4, RBC 2.96 L, Hgb 9.2 L, Hct 28.4 L, MCV 95.9 H, MCH 31.0, MCHC 32.3, RDW 15.2, Plt Count 173, MPV 9.8, Neut % (Auto) 60.8, Lymph % (Auto) 23.6, [place] % (Auto) 9.6 H, Eos % (Auto) 5.7, Baso % (Auto) 0.3, Neut # (Auto) 5.1, Lymph # (Auto) 2.0, [place] # (Auto) 0.8, Eos # (Auto) 0.5 H, Baso # (Auto) 0.0 03/13/21 06:17: Sodium 142, Potassium 4.2, Chloride 101, Carbon Dioxide 35 H, Anion Gap 10.2, BUN 52 H, Creatinine 3.00 H, Estimated Creat Clear 28, Estimated GFR 22 L, Est GFR ( Amer) 26 L, Glucose 92, Calcium 6.6 L I & O for Last 24 hours: Intake & Output 03/10/21 03/11/21 03/12/21 03/13/21 11:59 11:59 11:59 11:59 Intake Total 1340 / 1340 Output Total 1000 / 1000 Balance 340 / 340 Weight 319 lb 1 oz - Constitutional no acute distress, obese - *Routine HEENT Exam Head: Present: normocephalic Eye: Present: EOMI, PERRL ENT: Present: mucous membranes dry - *Routine Neck Exam Present: supple. Absent: JVD - *Routine Respiratory Exam Present: CTA bilaterally - *Routine Cardiovascular Exam Present: RRR, murmur - *Routine Abdominal Exam Present: soft - *Routine Extremities Exam Present: edema - *Routine Skin Exam Present: intact - *Routine Neurological Exam Present: alert, CN II-XII intact - Routine Psychiatric Exam Present: normal affect Assessment and Plan (1) Chronic kidney disease Status: Acute Category: Medical Code(s): N18.9 - Chronic kidney disease, unspecified (2) CHF (congestive heart failure) Status: Chronic Qualifiers: Heart failure type: unspe
--- NOTE | 2021-03-13 09:22 | P.CONPHA_ITS ---
[facility] Pharmacy VTE Monitoring - Patient Demographics Admission date: 03/12/21 Report Date: 03/13/21 Time: 09:23 Allergies/Adverse Reactions: Patient Allergies No Known Allergies Allergy (Verified 03/03/21 10:04) Height: 1.78 m Weight: 144.724 kg Patient Problems: Current Active Problems (Last Updated 11/13/19 @ 19:15 by Addison Brumfield APRN) Chronic kidney disease (Acute) Anemia (Acute) Morbid obesity with body mass index (BMI) of 40.0 to 49.9 (Acute) CHF (congestive heart failure) (Chronic) Hypothyroid (Chronic) - VTE Risk Labs: VTE Related Lab Results Hgb 9.2 g/dL (14.1-18.0) L 03/13/21 06:17 Hct 28.4 % (42.0-52.0) L 03/13/21 06:17 Plt Count 173 K/mm3 (142-424) 03/13/21 06:17 BUN 52 mg/dl (9-20) H 03/13/21 06:17 Creatinine 3.00 mg/dl (0.66-1.25) H 03/13/21 06:17 Estimated Creat Clear 28 mL/min (50-200) 03/13/21 06:17 - Prophylaxis VTE Prophylaxis Ordered?: Yes Types of VTE Prophylaxis: TEDS Knee High Location of Applied Device: Bilateral Lower Extremeties
--- NOTE | 2021-03-13 13:46 | PC.NURSE ---
JOELLE BOOM MASTER NOTIFIED OF CALCIUM LEVEL 2 GRAMS CALCIUM IV ORDERED
--- NOTE | 2021-03-13 14:35 | PC.NURSE ---
HE IS AOX4, HAS BEEN UP TO CHAIR FOR MOST OF SHIFT, TOLERATED DIET WELL. VITAL SIGNS HAVE REMAINED STABLE. CALCIUM IV CURRENTLY INFUSING. HE HAS DENIED N/V/D AND PAIN THUS FAR, MODERATE 2+ EDEMA NOTED TO BLE, HE HAS REQUIRED 2LNC T/O SHIFT FOR O2 SUPPORT, NO NEEDS AT THIS TIME, WILL CONTINUE TO MONITOR.
[2021-03-13 16:00] VITALS: BP 120/49; PULSE 95; RESP 18; TEMP 36.9; O2SAT 96
[2021-03-13 17:09] LABS: POC Glucose,Bedside 225 (70-110)
[2021-03-13 20:00] VITALS: BP 126/75; PULSE 88; RESP 20; TEMP 36.6; O2SAT 91; O2SAT 98
[2021-03-14] VITALS (8 sets, daily range): BP systolic 106–141; BP diastolic 51–86; PULSE 85–121; RESP 18–20; TEMP 36.6–37.1; O2SAT 92–98; BMI 45.8
[2021-03-14 00:41] LABS: POC Glucose,Bedside 120 (70-110)
--- NOTE | 2021-03-14 05:00 | PC.NURSE ---
VS WNL, shows no s/s of acute distress at this time, call light within reach, bed at lowest level for safety; will continue to monitor.
[2021-03-14 07:14] LABS: Chloride 101 mmol/L (98-107); Potassium 4.5 mmoL/L (3.5-5.1); Sodium 140 mmol/L (136-145)
[2021-03-14 07:16] LABS: Blood Urea Nitrogen 52 mg/dl (9-20); Creatinine Clearance Estimated 29 mL/min (50-200); Estimated Glomerular Filt Rate 22 ml/min (>60); GFR (African American) 27 ML/MIN (>60)
[2021-03-14 07:17] LABS: Anion Gap 10.5 mEq/L (5-15); Carbon Dioxide 33 mmol/L (22.0-30.0); Glucose 123 mg/dl (74-100)
[2021-03-14 07:33] LABS: Calcium 6.7 mg/dl (8.4-10.2)
--- NOTE | 2021-03-14 09:35 | HMH.ACPN2 ---
Internal Medicine - PN: Subj *Date: 03/15/21 *Time: 07:08 Interval history: pt with feeling improvement this am Exam Vital signs and Labs for Last 24 Hours: Temp Pulse Resp BP Pulse Ox 98.3 F 108 H 18 141/86 H 94 L 03/14/21 08:00 03/14/21 08:00 03/14/21 08:00 03/14/21 08:00 03/14/21 08:00 Laboratory Results - last 24 hr 03/13/21 16:47: POC Glucose 225 H 03/13/21 21:49: POC Glucose 120 H 03/14/21 06:37: Sodium 140, Potassium 4.5, Chloride 101, Carbon Dioxide 33 H, Anion Gap 10.5, BUN 52 H, Creatinine 2.90 H, Estimated Creat Clear 29, Estimated GFR 22 L, Est GFR ( Amer) 27 L, Glucose 123 H, Calcium 6.7 L I & O for Last 24 hours: Intake & Output 03/11/21 03/12/21 03/13/21 03/14/21 11:59 11:59 11:59 11:59 Intake Total 1340 / 1340 930 / 930 Output Total 1300 / 1300 825 / 825 Balance 40 / 40 105 / 105 Weight 319 lb 1 oz 320 lb 1 oz - Constitutional no acute distress, obese - *Routine HEENT Exam Head: Present: normocephalic Eye: Present: EOMI, PERRL ENT: Present: mucous membranes dry - *Routine Neck Exam Present: supple - *Routine Respiratory Exam Present: decreased breath sounds - *Routine Cardiovascular Exam Present: RRR, murmur - *Routine Abdominal Exam Present: soft - *Routine Extremities Exam Present: edema - *Routine Skin Exam Present: intact - *Routine Neurological Exam Present: alert, CN II-XII intact - Routine Psychiatric Exam Present: normal affect Assessment and Plan (1) Chronic kidney disease Status: Acute Category: Medical Code(s): N18.9 - Chronic kidney disease, unspecified (2) CHF (congestive heart failure) Status: Chronic Qualifiers: Heart failure type: unspecified Heart failure chronicity: acute on chronic Qualified Code(s): I50.9 - Heart failure, unspecified Category: Medical Code(s): I50.9 - Heart failure, unspecified (3) Morbid obesity with body mass index (BMI) of 40.0 to 49.9 Status: Acute Category: Medical Code(s): E66.01 - Morbid (severe) obesity due to excess calories (4) Anemia Status: Acute Qualifiers: Anemia type: unspecified type Qualified Code(s): D64.9 - Anemia, unspecified Category: Medical Code(s): D64.9 - Anemia, unspecified (5) Hypothyroid Status: Chronic Qualifiers: Hypothyroidism type: other Qualified Code(s): E03.8 - Other specified hypothyroidism Category: Medical Code(s): E03.9 - Hypothyroidism, unspecified
[2021-03-14 10:28] LABS: T4 (Thyroxine) 7.8 ug/dl (5.53-11.0)
[2021-03-14 10:41] LABS: Thyroid Stimulating Hormone 1.84 uIU/mL (0.465-4.68)
--- NOTE | 2021-03-14 17:06 | PC.NURSE ---
HE HAS BEEN UP TO CHAIR FOR MOST OF SHIFT AND TOLERATED WELL, HE HAS NOT C/O PAIN AND DENIES N/V/D, VSS T/O THIS SHIFT, TOLERATING PO INTAKE WELL, MULTIPLE VOIDS WITH SMALL AMOUNTS OF URINE NOTED, PT HAS HAD TWO INCONTINENT EPISODES THIS SHIFT WITH LARGE AMOUNTS OF URINE DRAINING INTO THE FLOOR SO THEY WERE NOT MEASURED. PT STILL EXHIBITS GENERALIZED EDEMA, HE MAY BENEFIT FROM A PT/OT CONSULT PRIOR TO DISCHARGE. HE IS ABLE TO STAND AND PIVOT FROM CHAIR TO THE BED BUT HAS DIFFICULTY FOLLOWING DIRECTIONS. NO NEEDS AT THIS TIME. WILL CONTINUE TO MONITOR.
[2021-03-14 21:14] LABS: POC Glucose,Bedside 105 (70-110)
[2021-03-14 21:14] LABS: POC Glucose,Bedside 168 (70-110)
[2021-03-15] VITALS (8 sets, daily range): BP systolic 119–147; BP diastolic 49–89; PULSE 91–133; RESP 18–26; TEMP 36.9–37.4; O2SAT 80–97; BMI 45.1
[2021-03-15 00:48] LABS: POC Glucose,Bedside 199 (70-110)
[2021-03-15 00:48] LABS: POC Glucose,Bedside 124 (70-110)
[2021-03-15 06:38] LABS: POC Glucose,Bedside 121 (70-110)
--- NOTE | 2021-03-15 09:21 | HMH.ACPN2 ---
Internal Medicine - PN: Subj *Date: 03/15/21 *Time: 09:21 Interval history: pt laying in bed Exam Vital signs and Labs for Last 24 Hours: Temp Pulse Resp BP Pulse Ox 98.6 F 125 H 26 H 147/83 H 93 L 03/15/21 08:00 03/15/21 08:00 03/15/21 08:00 03/15/21 08:00 03/15/21 08:00 Laboratory Results - last 24 hr 03/14/21 05:25: POC Glucose 105 03/14/21 06:37: TSH 1.84, Thyroxine (T4) 7.8 03/14/21 11:30: POC Glucose 168 H 03/14/21 16:33: POC Glucose 124 H 03/14/21 21:22: POC Glucose 199 H 03/15/21 06:10: POC Glucose 121 H I & O for Last 24 hours: Intake & Output 03/12/21 03/13/21 03/14/21 03/15/21 11:59 11:59 11:59 11:59 Intake Total 1340 / 1340 1130 / 1130 310 / 310 Output Total 1300 / 1300 825 / 825 800 / 800 Balance 40 / 40 305 / 305 -490 / -490 Weight 319 lb 1 oz 320 lb 1 oz 315 lb 4 oz Microbiology Reports for the Last 24 Hours: Microbiology 03/12/21 14:58 Blood Blood Culture - Preliminary NO GROWTH AFTER 48 HOURS 03/12/21 14:58 Blood Blood Culture - Preliminary NO GROWTH AFTER 48 HOURS - Constitutional no acute distress, morbidly obese - *Routine HEENT Exam Head: Present: normocephalic Eye: Present: PERRL ENT: Present: mucous membranes moist - *Routine Neck Exam Present: supple. Absent: lymphadenopathy - *Routine Respiratory Exam Present: CTA bilaterally - *Routine Cardiovascular Exam Present: RRR - *Routine Abdominal Exam Present: soft, normoactive bowel sounds, obese. Absent: tenderness - *Routine Extremities Exam Present: edema. Absent: cyanosis, clubbing - *Routine Skin Exam Present: warm. Absent: rash - *Routine Neurological Exam Present: alert, oriented X3 - Routine Psychiatric Exam Present: normal affect Assessment and Plan (1) Chronic kidney disease Status: Acute Category: Medical Code(s): N18.9 - Chronic kidney disease, unspecified (2) CHF (congestive heart failure) Status: Chronic Qualifiers: Heart failure type: unspecified Heart failure chronicity: acute on chronic Qualified Code(s): I50.9 - Heart failure, unspecified Category: Medical Code(s): I50.9 - Heart failure, unspecified (3) Morbid obesity with body mass index (BMI) of 40.0 to 49.9 Status: Acute Category: Medical Code(s): E66.01 - Morbid (severe) obesity due to excess calories (4) Anemia Status: Acute Qualifiers: Anemia type: unspecified type Qualified Code(s): D64.9 - Anemia, unspecified Category: Medical Code(s): D64.9 - Anemia, unspecified (5) Hypothyroid Status: Chronic Qualifiers: Hypothyroidism type: other Qualified Code(s): E03.8 - Other specified hypothyroidism Category: Medical Code(s): E03.9 - Hypothyroidism, unspecified - Assessment and plan all Dx Assessment and Plan for all problems:: rounded with dr bernal all orders per dr gomez cardiology consult echo labs continue antibiotics
--- NOTE | 2021-03-15 10:12 | SW/DCPLANNER ---
Addendum entered by Evelyn Aceves 03/19/21 09:34: I have informed Bharati with [facility] that this patient will return today. Bharati has stated no further COVID testing is needed at this time. Original Note: This patient currently resides at [facility]. I spoke with Bharati from [facility] this morning: patient is ICF level of care. I will continue to follow up with Bharati until patient is medically stable for discharge.
--- NOTE | 2021-03-15 10:31 | HMH.CNCARD ---
History of Present Illness Consult date: 03/15/21 Requesting physician: Fito Zavala Consult reason: congestive heart failure Chief complaint: chf History of present illness: This is a 60-year-old -[place] gentleman who lives at [facility]. The patient was sent over by nursing staff because of low blood pressure and tachycardia at the longterm. Upon arrival to the hospital the patient denied any complaints of shortness of breath, chest pain or chest pressure. He denied any leg pain. He has chronic edema in his bilateral lower extremities which he states was no worse on admission. The patient has known diastolic congestive heart failure and chronic kidney disease. This morning the patient is not answering any of my questions when I asked him. He is awake and alert but he will not answer any questions when I am speaking to him which is very unlike him. He does ask me for a warm blanket when I am examining him but that is it. Unable to do a review of systems because the patient will not answer any of my questions. And he will not follow any commands today. He does not appear to be in any distress during my examination. The patient has a history of being noncompliant with his fluid restrictions as well as his dietary restrictions. [facility] History I have reviewed the patient's past medical history: Yes Medical History: Reports:: Arrhythmia, Congestive Heart Failure, Diabetes Mellitus Type 2, Hyperlipidemia, Hypertension, Renal Disease, Renal Insufficiency Denies:: Cancer, Diabetes Mellitus Type 1, MRSA *Have you ever received a pneumonia vaccine?: (unsure) *Have you received a flu vaccine this season?: (unsure) Other Medical History: Reports: Anemia, Hypothyroidism, Thyroid Disease, Other Other Surgeries: Yes: No Previous Surgery, Tubal Ligation Amputation: No Fractures: Yes (left trocanter fx) - *Social History Smoking Status: Never smoker Alcohol Intake: never Substance Use Type: denies use *Occupational Status:: disabled Housing: longterm Household Members: other *Travel in the last 8 weeks: None Family Hx:: Unable to obtain Meds Home Medications Medication Instructions Recorded Confirmed Type atorvastatin 20 mg tablet 20 mg PO HS 10/27/18 03/13/21 History levothyroxine 100 mcg tablet 100 mcg PO 0600 10/27/18 03/13/21 History cholecalciferol (vitamin D3) 25 2,000 unit PO DAILY 04/08/19 03/13/21 History mcg (1,000 unit) capsule allopurinol 100 mg tablet 100 mg PO DAILY 11/04/19 03/13/21 History loratadine 10 mg tablet 10 mg PO DAILY 11/04/19 03/13/21 History Acetaminophen [Tylenol 500mg 500 mg PO Q4HP PRN 11/08/19 03/12/21 History tablet] Calcium Acetate 667 mg PO TIDWM 11/08/19 03/13/21 History Mag Carb/Aluminum Hydrox/Algin 30 ml PO Q6HP PRN 11/08/19 03/12/21 History [Acid Gone Antacid Liquid] Sennosides/Docusate Sodium [Senna 2 tab PO DAILYP PRN 11/08/19 03/12/21 History Plus 8.6-50 mg Softgel] ondansetron HCL [Zofran 4mg Tab*] 4 mg PO Q6HP PRN 11/08/19 03/12/21 History Furosemide [Lasix 40mg tab] 40 mg PO DAILY 03/12/21 03/13/21 History Insulin Glargine,Hum.rec.anlog 15 unit SQ DAILY 03/12/21 03/12/21 History [Basaglar Kwikpen U-100] Insulin Regular, Human [Novolin R 0 units SQ DIRECTED 03/12/21 03/13/21 History Flexpen] Metoprolol Tartrate [Lopressor 100 150 mg PO BID 03/12/21 03/13/21 History mg Tablets] Calcium Carbonate [Tums 500mg 500 mg PO DAILY 03/13/21 03/13/21 History chewtab] Epoetin Jesus [Procrit] 10,000 unit SQ WEEKLY 03/13/21 03/13/21 History Fluticasone Propionate 1 spray NS DAILY 03/13/21 03/13/21 History Iron Polysaccharide Complex 150 mg PO BID 03/13/21 03/13/21 History [Ferrex 150] Isosorbide Mononitrate 20 mg PO 0900,1600 03/13/21 03/13/21 History Valproic Acid [Depakene syrup 1,500 mg PO BID 03/13/21 03/13/21 History 250mg/5mL ronny UDC] guaiFENesin [Robafen] 200 mg PO Q6HP PRN 03/13/21 03/13/21 History risperiDONE [Risperdal] 3 mg
--- NOTE | 2021-03-15 10:32 | HMH.PTEV ---
Physical Therapy Evaluation Rehab PT IP Evaluation Start: 03/15/21 09:19 Freq: ONCE Status: Active Protocol: Document 03/15/21 10:24 CORIE (Rec: 03/15/21 10:32 DELFINANOEL [id number]) Subjective/History History History 60 yr old male presented to ed bad cough. Pt brought in by ambulance from [facility]. He denies shortness of breath, chest pain, fever, sputum production , or hemoptysis. Denies leg pain or any change in chronic swelling of the legs. Pt states is always on oxygen at the group home, he does not know how many liters. Pt has chronic kidney failure. per ed note reported to have a low blood pressure and tachycardia at the group home. pt admitted for CHF and cardiology work up. copied from [facility] ER Subjective Subjective pt reports he can't when asked to move legs, scoot to EOB, and stand, but does state he wants to get up pt reports he uses w/c at [facility] - reports he does not walk Rehab PT IP Eval Objective Appearance Patient Behavior Dependent,Resistive to Care, Confused Patient Orientation Name,Birthday Difficulty following instructions mild Speech Pattern Soft-Spoken Ambulation Patient Able to Ambulate No Balance Ability to Arise Unable Sitting Balance Steady, safe Dynamic Sitting Balance Ability Poor Transfers Bed Transfer Ability Maximum x 2 (75% assist) Sit to Stand Bed Transfer Ability Total/Dependent (100%) Rehab PT IP prob,goals,plan Problems Date of Evaluation: 03/15/21 PT IP Problems Bed Mobility,Transfers,Gait, Balance,Self care,Safety Rehab Potential Rehab Potential Poor Equipment Needs Assistive Devices Rolling / Wheeled Walker, Wheelchair Plan PT Intervention Plan Bed Mobility,Transfers,Gait, Therapeutic Exercise Discharge Goals Bed Transfer Ability Maximum x 2 (75% assist) Sit to Stand Chair Transfer Ability Total/De
--- NOTE | 2021-03-15 10:48 | HMH.OTEV ---
OT Inpatient Evaluation Rehab OT IP Evaluation Start: 03/15/21 09:19 Freq: ONCE Status: Complete Protocol: Document 03/15/21 10:40 [facility] (Rec: 03/15/21 10:48 [facility] [id number]) Rehab OT IP Assessment Subjective History Pt oriented to person and birthday. Pt reports he does not know where he is or what year it is. Pt claims he was from [facility]. Pt was admitted via ED on due to bad cough . Pt has a past medical history of Arrhythmia, CHF, DM type 2, Hyperlipidemia, HTN, and renal disease. Pt claims he required assistance with all ADLs and was dependent upon staff for all IaDLs. He also reports he has not walked in a while. Subjective I need to pee. Objective Patient Orientation Person,Birthday Upper Extremity Gross ROM WFL Bed Mobility bed mobility-scooting,bed mobility - supine/sit,bed mobility - rolling Assist Level Maximum x 2 (75% assist) Rehab OT IP prob,goals,plan Problems Date of Evaluation: 03/15/21 OT IP Problems Bed Mobility,Transfers,Gait, Balance,Self care,Safety Rehab Potential Rehab Potential Good Equipment Needs Assistive Devices Rolling / Wheeled Walker Plan OT intervention Plan Bed Mobility,Transfers,Gait, Balance,Self care,Safety, Therapeutic Exercise OT Plan Frequency BID Duration LOS Discharge Goals Bed Mobility Ability Assistance x1 Sit to Stand Chair Transfer Ability Moderate x 2 (50% assist) Chair Transfer Ability Moderate x 2 (50% assist) Chair Transfer Technique Sit to/from Ambulatory Chair Transfer Assistive Devices Rolling Walker Feeding Ability Assist with Tray Set Up Lower Body Dressing Ability Assistance X1 Upper Body Dressing Ability Assistance X1 Bathing Ability Assistance x1 Performing Toilet Hygiene Ability Assistance X1 Overall Commode/Toilet Transfer Ability Assistance x1 Commode/Toilet Transfer Technique Sit to/from Ambulatory Discharge Plan OT Discharge Plan Pt would benefit most from skilled therapy upon returning to SNF
--- NOTE | 2021-03-15 12:17 | CA_ITS ---
APPROVED REPORT Bilateral Lower Extremity Venous Study for DVT. 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: CN Indications leg pain and edema, soa Vein Imaging CFV (R): compressive, spontaneous, phasic, augmentation SFJ (R): compressive, spontaneous, phasic, augmentation FEM (R): compressive, spontaneous, phasic, augmentation POP (R): compressive, spontaneous, phasic, augmentation DFV (R): compressive, spontaneous, phasic, augmentation PTV (R): compressive, spontaneous, phasic, augmentation GSV (R): compressive, spontaneous, phasic, augmentation SSV (R): compressive, spontaneous, phasic, augmentation Peroneals (R):compressive, spontaneous, phasic, augmentation GAS (R): compressive, spontaneous, phasic, augmentation CFV (L): compressive, spontaneous, phasic, augmentation SFJ (L): compressive, spontaneous, phasic, augmentation FEM (L): compressive, spontaneous, phasic, augmentation POP (L): compressive, spontaneous, phasic, augmentation DFV (L): compressive, spontaneous, phasic, augmentation PTV (L): compressive, spontaneous, phasic, augmentation GSV (L): compressive, spontaneous, phasic, augmentation SSV (L): compressive, spontaneous, phasic, augmentation Peroneals (L):compressive, spontaneous, phasic, augmentation GAS (L): compressive, spontaneous, phasic, augmentation Findings Color flow duplex demonstrates no evidence of DVT of the following bilateral lower extremity Veins:Common Femoral Vein, Femoral Vein, Popliteal Vein, Posterior Tibial Veins, Peroneal Veins. Negative for DVT. Conclusion Negative for DVT. Electronically signed by : Thong Edmondson MD 03/15/2021 17:35:02
--- NOTE | 2021-03-15 12:18 | NM_ITS ---
PROCEDURE: NM PUL VENT AND PERFUSE CLINICAL INDICATION: soa COMPARISON: CT CT CHEST WO CON from 03/12/2021 CR XR CHEST AP from 03/15/2021 FINDINGS: Dose: 36.2 mCi technetium DTPA inhaled and 7.89 mCi technetium MAA IV. Study is somewhat limited technically due to patient's body habitus and inability to properly position the patient. The right CP angle is cut off on the perfusion images and the ventilation images. No segmental mismatched defect evident that would indicate a pulmonary embolus. There is some minimal nonsegmental areas of matched decreased activity in the perihilar region likely vascular in nature. IMPRESSION: Somewhat limited exam. Low probability for pulmonary embolus. Dictated by: Thong Edmondson MD 03/15/2021 16:58 Thong Edmondson MD in [facility] 03/15/2021 16:58
[2021-03-15 12:23] LABS: POC Glucose,Bedside 208 (70-110)
[2021-03-15 15:21] LABS: Erythrocyte Sedimentation Rate > 140 mm/hr (0-20)
[2021-03-15 15:33] LABS: Creatine Kinase 256 U/L (55-170); D-Dimer 0.91 ug/mL (0.0-0.5)
--- NOTE | 2021-03-15 16:14 | XR_ITS ---
PROCEDURE: XR CHEST AP CLINICAL HISTORY: soa COMPARISON: CR XR CHEST PORTABLE from 11/09/2019 CR XR CHEST PORTABLE from 11/12/[address] CHEST WO CON from 03/12/2021 CR XR CHEST PORTABLE from 03/12/2021 FINDINGS: There remains cardiomegaly with mild prominence of the mediastinum and pulmonary venous congestion suggesting CHF. Study is somewhat limited technically due to patient's body habitus and poor inspiration. No lobar consolidation or collapse.. No acute bony abnormalities. IMPRESSION: Mild CHF not significantly changed Dictated by: Thong Edmondson MD 03/15/2021 17:08 Thong Edmondson MD in [facility] 03/15/2021 17:08
[2021-03-15 16:57] LABS: Vitamin B12 300 pg/mL (239-931)
[2021-03-15 17:41] LABS: POC Glucose,Bedside 153 (70-110)
--- NOTE | 2021-03-15 17:43 | PC.NURSE ---
Pt has been pleasant and cooperative this shift. A&O X4. No complaints of pain or SOA. Pt is receiving O2 via NC @ 2 LPM with sats. >90%. Lungs CTA. Generalized, non-pitting edema noted to extremities and trunk. Telemetry reveals NSR/ST. Skin is C/D/I. Pt attempted to get OOB with PT today and was unable to stand. Pt has been incontinent and a brief is in place. Pt voids clear, yellow urine without issue. No BM thus far today. FSBS results have been 208 and 153. 20 G peripheral IV in the LT AC is patent and SL. VSS. Call light within reach. Will continue to monitor.
[2021-03-15 21:55] LABS: POC Glucose,Bedside 156 (70-110)
[2021-03-16] VITALS (7 sets, daily range): BP systolic 113–128; BP diastolic 70–82; PULSE 115–125; RESP 20; TEMP 37.2–37.8; O2SAT 90–95; BMI 44.9
--- NOTE | 2021-03-16 03:41 | PC.NURSE ---
shift summary pt is alert and oriented X4. lung sounds are clear with sats maintained 95% or higher on 3L via NC. pt has had no complaints of SOA. pt has rested comfortable for most of the night. pt has been incontinent with a brief. pt has had no complaints. pt denies any pain, nausea, vomiting, or diarrhea. no acute changes at this time will continue to monitor.
[2021-03-16 05:34] LABS: POC Glucose,Bedside 138 (70-110)
[2021-03-16 07:08] LABS: Basophils % 0.3 % (0.1-2.0); Eosinophils # 0.1 K/mm3 (0.0-0.4); Eosinophils % 1.2 % (0.1-12.0); Hemoglobin 9.7 g/dL (14.1-18.0); Mean Corpuscular HGB Conc 32.2 g/dL (31.8-35.4); Mean Corpuscular Hemoglobin 30.6 pg (27.0-31.2); Mean Corpuscular Volume 94.8 fl (80-94); Mean Platelet Volume 8.7 fl (7.4-10.4); Monocytes # 1.1 K/mm3 (0.1-1.0); Monocytes % 11.4 % (1.7-9.3); Neutrophils # 6.4 K/mm3 (1.8-7.8); Neutrophils % 66.2 % (37.0-80.0); Platelet Count 189 K/mm3 (142-424); Red Blood Count 3.16 M/mm3 (4.60-6.20); Red Cell Distribution Width 14.9 % (11.5-17.5); White Blood Count 9.7 K/mm3 (4.8-10.8)
[2021-03-16 07:12] LABS: Chloride 97 mmol/L (98-107)
[2021-03-16 07:13] LABS: Potassium 4.2 mmoL/L (3.5-5.1); Sodium 141 mmol/L (136-145)
[2021-03-16 07:15] LABS: Blood Urea Nitrogen 65 mg/dl (9-20); Creatinine Clearance Estimated 24 mL/min (50-200); Estimated Glomerular Filt Rate 19 ml/min (>60); GFR (African American) 23 ML/MIN (>60)
[2021-03-16 07:16] LABS: Anion Gap 15.2 mEq/L (5-15); Carbon Dioxide 33 mmol/L (22.0-30.0); Glucose 137 mg/dl (74-100)
[2021-03-16 07:24] LABS: Calcium 6.6 mg/dl (8.4-10.2)
--- NOTE | 2021-03-16 08:52 | HMH.ACPN2 ---
Internal Medicine - PN: Subj *Date: 03/16/21 *Time: 12:45 Interval history: 52-year-old male patient resting in bed quietly he denies any chest pain no shortness of breath today. He did negative bilateral lower extremity venous Dopplers and VQ scan revealed a somewhat limited exam with a low probability for pulmonary embolus.. He is more alert and more talkative today than yesterday. He did receive Lasix yesterday, it is hard to pinpoint exactly the amount he was diuresed but he is down 6 pounds from admission. Temperature this AM 100.9, will obtain UA, Blood Cultures x 2 NEGATIVE at 48 hours. Exam Vital signs and Labs for Last 24 Hours: Temp Pulse Resp BP Pulse Ox 100.1 F H 125 H 20 123/76 91 L 03/16/21 04:00 03/16/21 04:00 03/16/21 04:00 03/16/21 04:00 03/16/21 04:00 Laboratory Results - last 24 hr 03/15/21 11:46: POC Glucose 208 H 03/15/21 14:05: ESR > 140 H 03/15/21 14:05: Total Creatine Kinase 256 H, Vitamin B12 300, Total Valproic Acid 85.0 03/15/21 14:05: D-Dimer 0.91 H 03/15/21 17:27: POC Glucose 153 H 03/15/21 21:33: POC Glucose 156 H 03/16/21 05:01: POC Glucose 138 H 03/16/21 06:04: WBC 9.7, RBC 3.16 L, Hgb 9.7 L, Hct 30.0 L, MCV 94.8 H, MCH 30.6, MCHC 32.2, RDW 14.9, Plt Count 189, MPV 8.7, Neut % (Auto) 66.2, Lymph % (Auto) 21.0, [place] % (Auto) 11.4 H, Eos % (Auto) 1.2, Baso % (Auto) 0.3, Neut # (Auto) 6.4, Lymph # (Auto) 2.0, [place] # (Auto) 1.1 H, Eos # (Auto) 0.1, Baso # (Auto) 0.0 03/16/21 06:04: Sodium 141, Potassium 4.2, Chloride 97 L, Carbon Dioxide 33 H, Anion Gap 15.2 H, BUN 65 H, Creatinine 3.40 H, Estimated Creat Clear 24, Estimated GFR 19 L*, Est GFR ( Amer) 23 L, Glucose 137 H, Calcium 6.6 L I & O for Last 24 hours: Intake & Output 03/13/21 03/14/21 03/15/21 03/16/21 23:59 23:59 23:59 23:59 Intake Total 1170 / 1170 270 / 270 360 / 360 Output Total 1275 / 1275 900 / 900 350 / 350 Balance -105 / -105 -630 / -630 Weight 319 lb 1 oz 320 lb 1 oz 315 lb 4 oz 313 lb 9 oz - Constitutional no acute distress, chronically ill appearing - *Routine HEENT Exam Head: Present: normocephalic Eye: Present: EOMI ENT: Present: mucous membranes moist - *Routine Neck Exam Present: trachea midline. Absent: tracheal deviation - *Routine Respiratory Exam Present: decreased breath sounds - *Routine Cardiovascular Exam Present: RRR - *Routine Abdominal Exam Present: soft, normoactive bowel sounds. Absent: tenderness, firm - *Routine Extremities Exam Present: edema. Absent: full ROM, calf tenderness Assessment and Plan (1) Sinus tachycardia Status: Resolved Category: Medical Code(s): R00.0 - Tachycardia, unspecified (2) Heart failure, diastolic, acute on chronic Status: Chronic Category: Medical Code(s): I50.33 - Acute on chronic diastolic (congestive) heart failure (3) CKD (chronic kidney disease) stage 4, GFR 15-29 ml/min Status: Chronic Category: Medical Code(s): N18.4 - Chronic kidney disease, stage 4 (severe) (4) Morbid obesity with body mass index (BMI) of 40.0 to 49.9 Status: Acute Category: Medical Code(s): E66.01 - Morbid (severe) obesity due to excess calories (5) Anemia Status: Acute Qualifiers: Anemia type: unspecified type Qualified Code(s): D64.9 - Anemia, unspecified Category: Medical Code(s): D64.9 - Anemia, unspecified (6) Hypothyroid Status: Chronic Qualifiers: Hypothyroidism type: other Qualified Code(s): E03.8 - Other specified hypothyroidism Category: Medical Code(s): E03.9 - Hypothyroidism, unspecified (7) Edema of lower extremity Status: Acute Category: Medical Code(s): R60.0 - Localized edema (8) HTN (hypertension) Status: Chronic Qualifiers: Hypertension type: essential hypertension Qualified Code(s): I10 - Essential (primary) hypertension Category: Medical Code(s): I10 - Essential (primary) hypertension (9) Hyperlipemia Status: Chronic
[2021-03-16 08:59] LABS: C-Reactive Protein 232.4 mg/L (0-4)
[2021-03-16 09:12] LABS: Procalcitonin 0.988 ng/mL (0.0-2.0)
--- NOTE | 2021-03-16 09:32 | P.PN_ITS ---
Internal Medicine - PN: Subj *Date: 03/16/21 *Time: 09:33 Exam Vital signs and Labs for Last 24 Hours: Temp Pulse Resp BP Pulse Ox 100.1 F H 125 H 20 123/76 91 L 03/16/21 04:00 03/16/21 04:00 03/16/21 04:00 03/16/21 04:00 03/16/21 04:00 Laboratory Results - last 24 hr 03/15/21 11:46: POC Glucose 208 H 03/15/21 14:05: ESR > 140 H 03/15/21 14:05: Total Creatine Kinase 256 H, Vitamin B12 300, Total Valproic Acid 85.0 03/15/21 14:05: D-Dimer 0.91 H 03/15/21 17:27: POC Glucose 153 H 03/15/21 21:33: POC Glucose 156 H 03/16/21 05:01: POC Glucose 138 H 03/16/21 06:04: WBC 9.7, RBC 3.16 L, Hgb 9.7 L, Hct 30.0 L, MCV 94.8 H, MCH 30.6, MCHC 32.2, RDW 14.9, Plt Count 189, MPV 8.7, Neut % (Auto) 66.2, Lymph % (Auto) 21.0, [place] % (Auto) 11.4 H, Eos % (Auto) 1.2, Baso % (Auto) 0.3, Neut # (Auto) 6.4, Lymph # (Auto) 2.0, [place] # (Auto) 1.1 H, Eos # (Auto) 0.1, Baso # (Auto) 0.0 03/16/21 06:04: Sodium 141, Potassium 4.2, Chloride 97 L, Carbon Dioxide 33 H, Anion Gap 15.2 H, BUN 65 H, Creatinine 3.40 H, Estimated Creat Clear 24, Estimated GFR 19 L*, Est GFR ( Amer) 23 L, Glucose 137 H, Calcium 6.6 L 03/16/21 06:04: C-Reactive Protein 232.4 H, Procalcitonin 0.988 I & O for Last 24 hours: Intake & Output 03/13/21 03/14/21 03/15/21 03/16/21 23:59 23:59 23:59 23:59 Intake Total 1170 / 1170 270 / 270 360 / 360 Output Total 1275 / 1275 900 / 900 350 / 350 Balance -105 / -105 -630 / -630 10 / 10 Weight 144.724 kg 145.178 kg 142.995 kg 142.23 kg Assessment and Plan (1) Sinus tachycardia Status: Resolved Category: Medical Code(s): R00.0 - Tachycardia, unspecified (2) Heart failure, diastolic, acute on chronic Status: Chronic Category: Medical Code(s): I50.33 - Acute on chronic diastolic (congestive) heart failure (3) CKD (chronic kidney disease) stage 4, GFR 15-29 ml/min Status: Chronic Category: Medical Code(s): N18.4 - Chronic kidney disease, stage 4 (severe) (4) Morbid obesity with body mass index (BMI) of 40.0 to 49.9 Status: Acute Category: Medical Code(s): E66.01 - Morbid (severe) obesity due to excess calories (5) Anemia Status: Acute Qualifiers: Anemia type: unspecified type Qualified Code(s): D64.9 - Anemia, unspecified Category: Medical Code(s): D64.9 - Anemia, unspecified (6) Hypothyroid Status: Chronic Qualifiers: Hypothyroidism type: other Qualified Code(s): E03.8 - Other specified hypothyroidism Category: Medical Code(s): E03.9 - Hypothyroidism, unspecified (7) Edema of lower extremity Status: Acute Category: Medical Code(s): R60.0 - Localized edema (8) HTN (hypertension) Status: Chronic Qualifiers: Hypertension type: essential hypertension Qualified Code(s): I10 - Essential (primary) hypertension Category: Medical Code(s): I10 - Essential (primary) hypertension (9) Hyperlipemia Status: Chronic Qualifiers: Hyperlipidemia type: mixed hyperlipidemia Qualified Code(s): E78.2 - Mixed hyperlipidemia Category: Medical Code(s): E78.5 - Hyperlipidemia, unspecified The patient's infection will respond to the chosen ABx?: Yes (EMPIRIC THERAPY) Is the patient receiving the right drug, dose, and route?: Yes Could a more targeted ABx be ordered?: No (CULTURE SPECIMEN UNAVAILABLE)
--- NOTE | 2021-03-16 09:50 | HMH.PNCARD ---
Subjective Date: 03/16/21 Time: 09:40 Principal diagnosis: chf Interval history: This is a 60-year-old gentleman who lives at [facility]. The patient was brought into the hospital initially for low blood pressure and tachycardia. He was admitted for an acute exacerbation of his diastolic congestive heart failure. The patient is getting IV Lasix. It is really hard to have an accurate assessment of his intake and output because he is voiding in a diaper at times. However since admission his weight is down about 6 or 7 pounds. Yesterday the patient complained of bilateral lower extremity pain and inability to walk and weakness in the lower extremities which was unusual for him. He did have bilateral venous duplex which showed no evidence of DVT. His CPK was elevated and his Lipitor has been stopped. Today he is complaining of shortness of breath and states that he does not feel well. He states that his shortness of breath has improved since being in the hospital but he just feels very weak and not like himself. He denies any chest pain or pressure. He denies any fever although he does have a high fever of 100.1 this morning. He denies any chills, nausea, vomiting, diarrhea. He does have some associated orthopnea with his shortness of breath. He is more talkative today than he was yesterday and he is able to answer all of my questions appropriately and follow all of my commands. Exam Vital signs and Labs for Last 24 Hours: Temp Pulse Resp BP Pulse Ox 100.1 F H 125 H 20 123/76 91 L 03/16/21 04:00 03/16/21 04:00 03/16/21 04:00 03/16/21 04:00 03/16/21 04:00 Laboratory Results - last 24 hr 03/15/21 11:46: POC Glucose 208 H 03/15/21 14:05: ESR > 140 H 03/15/21 14:05: Total Creatine Kinase 256 H, Vitamin B12 300, Total Valproic Acid 85.0 03/15/21 14:05: D-Dimer 0.91 H 03/15/21 17:27: POC Glucose 153 H 03/15/21 21:33: POC Glucose 156 H 03/16/21 05:01: POC Glucose 138 H 03/16/21 06:04: WBC 9.7, RBC 3.16 L, Hgb 9.7 L, Hct 30.0 L, MCV 94.8 H, MCH 30.6, MCHC 32.2, RDW 14.9, Plt Count 189, MPV 8.7, Neut % (Auto) 66.2, Lymph % (Auto) 21.0, [place] % (Auto) 11.4 H, Eos % (Auto) 1.2, Baso % (Auto) 0.3, Neut # (Auto) 6.4, Lymph # (Auto) 2.0, [place] # (Auto) 1.1 H, Eos # (Auto) 0.1, Baso # (Auto) 0.0 03/16/21 06:04: Sodium 141, Potassium 4.2, Chloride 97 L, Carbon Dioxide 33 H, Anion Gap 15.2 H, BUN 65 H, Creatinine 3.40 H, Estimated Creat Clear 24, Estimated GFR 19 L*, Est GFR ( Amer) 23 L, Glucose 137 H, Calcium 6.6 L 03/16/21 06:04: C-Reactive Protein 232.4 H, Procalcitonin 0.988 I & O for Last 24 hours: Intake & Output 03/13/21 03/14/21 03/15/21 03/16/21 23:59 23:59 23:59 23:59 Intake Total 1170 / 1170 270 / 270 360 / 360 Output Total 1275 / 1275 900 / 900 350 / 350 Balance -105 / -105 -630 / -630 10 / 10 Weight 319 lb 1 oz 320 lb 1 oz 315 lb 4 oz 313 lb 9 oz Narrative: Telemetry strip is sinus tachycardia with a rate of 125 bpm. Bilateral venous Doppler was negative for DVT bilaterally. VQ scan showed: Somewhat limited exam. Low probability for pulmonary embolus. Chest x-ray this morning showed: Mild CHF not significantly changed - Constitutional no acute distress, morbidly obese - *Routine HEENT Exam Head: Present: normocephalic, atraumatic Eye: Present: EOMI, PERRL ENT: Present: mucous membranes moist - *Routine Neck Exam Present: supple, full ROM, normal carotid upstroke. Absent: JVD, carotid bruit, lymphadenopathy - *Routine Respiratory Exam Present: decreased breath sounds, rhonchi - *Routine Cardiovascular Exam Present: RRR, Normal S1, Normal S2. Absent: murmur - *Routine Abdominal Exam Present: soft, normoactive bowel sounds. Absent: tenderness, distended - *Routine Extremities Exam Present: edema, full ROM, pulses intact, normal capillary refill. Absent: cyanosis, clubbing - *Routine Skin Exam Present: intact, warm. Absent: erythema, rash - *Routine
[2021-03-16 12:08] LABS: POC Glucose,Bedside 192 (70-110)
--- NOTE | 2021-03-16 15:00 | MR_ITS ---
PROCEDURE INFORMATION: Exam: MR Lumbar Spine Without Contrast. Exam date and time: 03/16/2021 3:00 PM Age: 60 years old Clinical indication: Low back pain; Additional info: Immobility of bilateral lower extremitys TECHNIQUE: Imaging protocol: Multiplanar magnetic resonance images of the lumbar spine without contrast. COMPARISON: No relevant prior exams. FINDINGS: T12-L1: There is desiccation and narrowing of the disk. There is a broad-based circumferential disk osteophyte complex. There is minimal impingement on the thecal sac. No focal disk protrusions. L1-2: There is desiccation of the intervertebral disk. There is a broad-based circumferential disk osteophyte complex. There is minimal impingement on the thecal sac. No focal disk protrusions. L2-3: There is mild posterior bulging of the disk. There is minimal impingement on the thecal sac. The disk is otherwise normal in morphology and signal characteristics. No focal disk protrusion. Degenerative changes produce mild bilateral foraminal narrowing. L3-4: There is a broad-based circumferential disk osteophyte complex. There is mild impingement on the thecal sac. Small focal contained disc protrusion measuring 7 mm at the base and extending 4 mm posteriorly. Moderate impingement on the thecal sac. L4-5: There is a broad-based circumferential disk osteophyte complex. There is mild impingement on the thecal sac. No focal disk protrusions. Small tear in the posterior annulus. L5-S1: There is desiccation and narrowing of the disk. There is a broad-based circumferential disk osteophyte complex. There is minimal impingement on the thecal sac. No focal disk protrusions. Vertebrae: Spondylolysis of L5 with minimal grade 1 spondylolisthesis. Normal alignment, otherwise. No fractures or dislocations. Spinal cord: The distal spinal cord and conus medullaris are normal. There is thickening and bunching of the caudal nerve roots. IMPRESSION: 1. Multilevel degenerative disc disease with a small focal disc protrusion at the L3-L4 level. No other focal disc protrusions. 2. Spondylolysis of L5 with minimal grade 1 spondylolisthesis. 3. Thickening and bunching of the caudal nerve roots is consistent with arachnoiditis.
--- NOTE | 2021-03-16 15:28 | PC.NURSE ---
PT down for MRI @ this time.
[2021-03-16 17:25] LABS: POC Glucose,Bedside 166 (70-110)
--- NOTE | 2021-03-16 17:29 | PC.NURSE ---
Addendum entered by Nhung Hernandez RN 03/16/21 17:38: Unable to obtain UA specimen @ this time, pt aware of need. Attempted to place condom cath w/ no success. Urinal is available @ bedside, pt states he can void in this for specimen. Original Note: No acute changes. Currently on 2 L O2 per nasal cannula, no s/s of resp distress. Denies being SOA. Non-productive cough noted. Sinus tach on tely. BLE edema present. Pedal pulses palpable. Abdomen soft, large, non-tender w/ active BS. Pt incontinent of B&B this shift. Pt reports being weak, stating he cannot move his legs and can barely move his arms. Refused to work w/ PT/OT this shift. Staff have offered to assist pt to chair, he has refused this as well. Currently sitting up in bed watching TV. Spoke w/ pt's uncle, Oliver, consent obtained for heart cath tomorrow, verified w/ DELLA Haley RN. Bed alarm in place. Call catalina w/in reach.
[2021-03-16 22:25] LABS: POC Glucose,Bedside 235 (70-110)
[2021-03-17] VITALS (26 sets, daily range): BP systolic 93–126; BP diastolic 57–93; PULSE 70–115; RESP 14–22; TEMP 36.5–37.2; O2SAT 92–98; BMI 43.8
--- NOTE | 2021-03-17 | IR_ITS ---
APPROVED REPORT Patient Location: Inpatient Knife Operator: CHANTAL Madsen RT (R) PROCEDURES Right heart catheterization INDICATION Biventricular congestive heart failure Informed consent was obtained prior to the procedure. COMPLICATIONS NONE Estimated Blood Loss: LESS THAN 10 ML TECHNIQUE One percent lidocaine was used to anesthetize the right anterior aspect of the neck. A gum dipper needle was used to identify the right internal jugular vein. Following this a larger cannulation needle was used to cannulate the right internal jugular vein and a wire was passed into the vein. Prior to the 7 [place] sheath being inserted the wire was confirmed under fluoroscopic guidance to be in the inferior vena cava. A 7 [place] sheath was introduced and a [place] catheter was floated using hemodynamic waveforms in the pulmonary artery, right ventricle , and right atrium. Saturations were obtained in the pulmonary artery and the right atrium. At the end of the procedure the patient was transferred to the postop holding area in stable condition for sheath removal. ANGIOGRAPHIC RESULTS Right atrial pressure 5 mmHg Pulmonary artery pressure 25/15 mmHg Pulmonary occlusion pressure 10 mmHg Right atrial saturation 57% Pulmonary saturation 53% IMPRESSION Normal to slightly mildly elevated intracardiopulmonary filling pressures PLAN 1. Continue with diuresis for severe lower extremity edema 2. Evaluation for portal hypertension 3. CT of the abdomen and pelvis without contrast looking for possible inferior vena caval syndrome Electronically signed by : Wilian Rowe, 03/17/2021 15:33:45
[2021-03-17 07:03] LABS: POC Glucose,Bedside 207 (70-110)
[2021-03-17 07:14] LABS: Basophils % 0.1 % (0.1-2.0); Eosinophils % 0.1 % (0.1-12.0); Hematocrit 30.2 % (42.0-52.0); Hemoglobin 9.6 g/dL (14.1-18.0); Lymphocytes % 10.4 % (10-50); Mean Corpuscular HGB Conc 31.7 g/dL (31.8-35.4); Mean Corpuscular Hemoglobin 30.3 pg (27.0-31.2); Mean Corpuscular Volume 95.4 fl (80-94); Monocytes # 0.3 K/mm3 (0.1-1.0); Monocytes % 2.9 % (1.7-9.3); Neutrophils % 86.5 % (37.0-80.0); Platelet Count 186 K/mm3 (142-424); Red Blood Count 3.16 M/mm3 (4.60-6.20); Red Cell Distribution Width 14.7 % (11.5-17.5); White Blood Count 9.2 K/mm3 (4.8-10.8)
[2021-03-17 07:19] LABS: Chloride 97 mmol/L (98-107); Sodium 142 mmol/L (136-145)
[2021-03-17 07:20] LABS: Potassium 4.2 mmoL/L (3.5-5.1)
[2021-03-17 07:23] LABS: Anion Gap 14.2 mEq/L (5-15); Carbon Dioxide 35 mmol/L (22.0-30.0); Creatinine Clearance Estimated 22 mL/min (50-200); Estimated Glomerular Filt Rate 17 ml/min (>60); GFR (African American) 21 ML/MIN (>60); Glucose 207 mg/dl (74-100)
[2021-03-17 07:27] LABS: MANUAL DIFFERENTIAL MANUAL DIFFERENTIAL (MANUAL DIFF)
[2021-03-17 08:06] LABS: Blood Urea Nitrogen 76 mg/dl (9-20); Calcium 6.5 mg/dl (8.4-10.2)
[2021-03-17 08:30] LABS: Microscopic, Urine URINE MICROSCOPIC (MICROSCOPIC)
[2021-03-17 08:33] LABS: Appearance,Urine CLEAR (Clear); Bilirubin,Urine Negative (Negative); Blood, Urine 1+ (Negative); Color,Urine YELLOW (Yellow); Glucose,Urine (UA) Negative (Negative); Ketones,Urine Negative (Negative); Leukocyte Esterase,Urine Negative (Negative); Nitrate,Urine Negative (Negative); Protein,Urine Negative (Negative); Urobilinogen,Urine 0.2 EU/dl (0.2)
--- NOTE | 2021-03-17 08:33 | HMH.ACPN2 ---
Internal Medicine - PN: Subj *Date: 03/17/21 *Time: 10:57 Interval history: 60-year-old male patient resting quietly in bed, he does answer all questions appropriately and is more alert today. MRI of the back yesterday revealed 1. Multilevel degenerative disc disease with a small focal disc protrusion at the L3-L4 level. No other focal disc protrusions. 2. Spondylolysis of L5 with minimal grade 1 spondylolisthesis. 3. Thickening and bunching of the caudal nerve roots is consistent with arachnoiditis. He will go to R Heart Cath today. Exam Vital signs and Labs for Last 24 Hours: Temp Pulse Resp BP Pulse Ox 98.5 F 114 H 18 120/93 H 97 03/17/21 07:56 03/17/21 07:56 03/17/21 07:56 03/17/21 07:56 03/17/21 07:56 Laboratory Results - last 24 hr 03/16/21 06:04: C-Reactive Protein 232.4 H, Procalcitonin 0.988 03/16/21 11:20: POC Glucose 192 H 03/16/21 16:47: POC Glucose 166 H 03/16/21 22:18: POC Glucose 235 H 03/17/21 06:46: WBC 9.2, RBC 3.16 L, Hgb 9.6 L, Hct 30.2 L, MCV 95.4 H, MCH 30.3, MCHC 31.7 L, RDW 14.7, Plt Count 186, MPV 9.0, Neut % (Auto) 86.5 H, Lymph % (Auto) 10.4, [place] % (Auto) 2.9, Eos % (Auto) 0.1, Baso % (Auto) 0.1, Neut # (Auto) 8.0 H, Lymph # (Auto) 1.0, [place] # (Auto) 0.3, Eos # (Auto) 0.0, Baso # (Auto) 0.0 03/17/21 06:46: Sodium 142, Potassium 4.2, Chloride 97 L, Carbon Dioxide 35 H, Anion Gap 14.2, BUN 76 H, Creatinine 3.70 H, Estimated Creat Clear 22, Estimated GFR 17 L*, Est GFR ( Amer) 21 L, Glucose 207 H, Calcium 6.5 L 06/09/21 06:50: POC Glucose 207 H I & O for Last 24 hours: Intake & Output 03/14/21 03/15/21 03/16/21 03/17/21 23:59 23:59 23:59 23:59 Intake Total 270 / 270 360 / 360 900 / 900 Output Total 900 / 900 350 / 350 200 / 200 Balance -630 / -630 10 / 10 700 / 700 Weight 320 lb 1 oz 315 lb 4 oz 313 lb 9 oz 306 lb 6.4 oz - Constitutional no acute distress, chronically ill appearing - *Routine HEENT Exam Head: Present: normocephalic Eye: Present: EOMI ENT: Present: mucous membranes moist - *Routine Neck Exam Present: trachea midline. Absent: tracheal deviation - *Routine Respiratory Exam Present: decreased breath sounds - *Routine Cardiovascular Exam Present: RRR - *Routine Abdominal Exam Present: soft, normoactive bowel sounds, obese. Absent: tenderness, rigid - *Routine Extremities Exam Present: edema, pulses intact. Absent: full ROM Comments: Unable to move bilateral lower extremities - *Routine Skin Exam Present: intact, dry, warm. Absent: jaundice - *Routine Neurological Exam Present: alert, altered mental status - Routine Psychiatric Exam Present: unable to assess Assessment and Plan (1) Sinus tachycardia Status: Resolved Category: Medical Code(s): R00.0 - Tachycardia, unspecified (2) Heart failure, diastolic, acute on chronic Status: Chronic Category: Medical Code(s): I50.33 - Acute on chronic diastolic (congestive) heart failure (3) CKD (chronic kidney disease) stage 4, GFR 15-29 ml/min Status: Chronic Category: Medical Code(s): N18.4 - Chronic kidney disease, stage 4 (severe) (4) Morbid obesity with body mass index (BMI) of 40.0 to 49.9 Status: Acute Category: Medical Code(s): E66.01 - Morbid (severe) obesity due to excess calories (5) Anemia Status: Acute Qualifiers: Anemia type: unspecified type Qualified Code(s): D64.9 - Anemia, unspecified Category: Medical Code(s): D64.9 - Anemia, unspecified (6) Hypothyroid Status: Chronic Qualifiers: Hypothyroidism type: other Qualified Code(s): E03.8 - Other specified hypothyroidism Category: Medical Code(s): E03.9 - Hypothyroidism, unspecified (7) Edema of lower extremity Status: Acute Category: Medical Code(s): R60.0 - Localized edema (8) HTN (hypertension) Status: Chronic Qualifiers: Hypertension type: essential hypertension Qualified Code(s): I10 - Essential (primary) hypertension
[2021-03-17 08:57] LABS: RBC,Urine Occasional #/hpf (0-3)
--- NOTE | 2021-03-17 09:13 | CT_ITS ---
PROCEDURE: CT HEAD/BRAIN WO CON CLINICAL INDICATION: inability to walk COMPARISON: CT CT HEAD/BRAIN WO CON from 11/08/2019 TECHNIQUE: Axial images obtained. All CT scans at the facility use one or more dose reduction, viz: automated exposure control, ma/kV adjustment per patient size (including targeted exams where dose is matched to indication, i.e. head), or iterative reconstruction technique. FINDINGS: No midline shift, mass effect, intracranial hemorrhage, hydrocephalus, or extra-axial fluid collection is evident. Cavum septum pellucidum is present as normal normal variant. No evidence of hydrocephalus the calvarium has an unremarkable appearance. No mastoid effusion. Mild mucosal thickening of the ethmoid sinuses sphenoid and maxillary sinuses. Hyperostosis frontalis interna is present as a normal variant. IMPRESSION: No acute intracranial finding Dictated by: Thong Edmondson MD 03/17/2021 10:04 Thong Edmondson MD in [facility] 03/17/2021 10:04
--- NOTE | 2021-03-17 09:54 | PC.NURSE ---
JÚNIOR BALDWIN AND MASHA IN [facility] NOTIFIED OF ABNORMAL CALCIUM/BUN/CREATININE LEVELS THIS AM DURING ROUNDS.
--- NOTE | 2021-03-17 10:04 | HMH.PNCARD ---
Subjective Date: 03/17/21 Time: 09:30 Principal diagnosis: chf Interval history: This is a 60-year-old -[place] gentleman who resides at [facility]. The patient was brought into the emergency department initially for low blood pressure and tachycardia. The patient has been admitted and treated for an acute exacerbation of diastolic congestive heart failure. The patient has been aggressively diuresed with IV Lasix and his weight is down 14 pounds at this time. We cannot get an accurate intake and output on this patient because he is not always voiding in the urinal to accurately measure his output. The patient was having motor deficits in the bilateral lower extremities and was unable to move his bilateral lower extremities. He did undergo an MRI of his lumbar spine yesterday which ruled out transverse myelitis which was a concern of Dr. Rowe. This morning the patient is way more alert and talkative. He denies any chest pain or pressure. He states that his shortness of breath has significantly improved since being in the hospital. He still has some orthopnea with his shortness of breath but this is also improved. He denies any fever, chills, nausea, vomiting, diarrhea. The patient is able to answer all of my questions appropriately and he is following all of my commands. He still is having issues moving his lower extremities but he has a lot more motion today than he did yesterday. Exam Vital signs and Labs for Last 24 Hours: Temp Pulse Resp BP Pulse Ox 98.5 F 114 H 18 120/93 H 97 03/17/21 07:56 03/17/21 07:56 03/17/21 07:56 03/17/21 07:56 03/17/21 07:56 Laboratory Results - last 24 hr 03/16/21 08:25: Urine Color Yellow, Urine Appearance Clear, Urine pH 6.0, Ur Specific [place] 1.010, Urine Protein Negative, Urine Glucose (UA) Negative, Urine Ketones Negative, Urine Blood 1+, Urine Nitrate Negative, Urine Bilirubin Negative, Urine Urobilinogen 0.2, Ur Leukocyte Esterase Negative, Urine RBC Occasional, Urine WBC None, Ur Squamous Epith Cells None, Urine Bacteria None 03/16/21 11:20: POC Glucose 192 H 03/16/21 16:47: POC Glucose 166 H 03/16/21 22:18: POC Glucose 235 H 03/17/21 06:46: WBC 9.2, RBC 3.16 L, Hgb 9.6 L, Hct 30.2 L, MCV 95.4 H, MCH 30.3, MCHC 31.7 L, RDW 14.7, Plt Count 186, MPV 9.0, Neut % (Auto) 86.5 H, Lymph % (Auto) 10.4, [place] % (Auto) 2.9, Eos % (Auto) 0.1, Baso % (Auto) 0.1, Neut # (Auto) 8.0 H, Lymph # (Auto) 1.0, [place] # (Auto) 0.3, Eos # (Auto) 0.0, Baso # (Auto) 0.0 03/17/21 06:46: Sodium 142, Potassium 4.2, Chloride 97 L, Carbon Dioxide 35 H, Anion Gap 14.2, BUN 76 H, Creatinine 3.70 H, Estimated Creat Clear 22, Estimated GFR 17 L*, Est GFR ( Amer) 21 L, Glucose 207 H, Calcium 6.5 L 03/17/21 06:50: POC Glucose 207 H I & O for Last 24 hours: Intake & Output 03/14/21 03/15/21 03/16/21 03/17/21 23:59 23:59 23:59 23:59 Intake Total 270 / 270 360 / 360 900 / 900 Output Total 900 / 900 350 / 350 200 / 200 Balance -630 / -630 700 / 700 Weight 320 lb 1 oz 315 lb 4 oz 313 lb 9 oz 306 lb 6.4 oz Narrative: Telemetry strip shows sinus rhythm with a rate of 82. MRI of the L-spine shows: 1. Multilevel degenerative disc disease with a small focal disc protrusion at the L3-L4 level. No other focal disc protrusions. 2. Spondylolysis of L5 with minimal grade 1 spondylolisthesis. 3. Thickening and bunching of the caudal nerve roots is consistent with arachnoiditis. Echo shows an EF of 55% with no significant valvular disease or pericardial effusion. - Constitutional no acute distress, morbidly obese - *Routine HEENT Exam Head: Present: normocephalic, atraumatic Eye: Present: EOMI, PERRL ENT: Present: mucous membranes moist - *Routine Neck Exam Present: supple, full ROM, normal carotid upstroke. Absent: JVD, carotid bruit, lymphadenopathy - *Routine Respiratory Exam Present: decreased breath sounds - *Routine Cardiovascular Exam Present: RRR, Normal S1, Nor
--- NOTE | 2021-03-17 10:43 | PC.NURSE ---
Sputum induced. Pt has nonproductive cough. Encouraged pt to continue to cough. Specimen cup left at bedside.
[2021-03-17 10:57] LABS: Lymphocytes % 12 % (10-50); Monocytes % 5 % (2-9); Neutrophils % 83 % (42-76); Total Cells Counted 100
[2021-03-17 10:58] LABS: Platelet Estimate Normal; RBC Morphology Normal
[2021-03-17 15:34] LABS: ABG Base Excess 15.2 mmol/L (-2.4-2.3); ABG HCO3 41.2 mmhg (22.0-26.0); ABG Oxygen Saturation 53 % (90-100); ABG PH 7.32 mmol/L (7.35-7.45); ABG TCO2 43.7 mmhg (23-27)
[2021-03-17 15:35] LABS: ABG HCO3 38.9 mmhg (22.0-26.0); ABG Oxygen Saturation 58 % (90-100); ABG PH 7.33 mmol/L (7.35-7.45); ABG TCO2 41.2 mmhg (23-27)
[2021-03-17 15:36] LABS: Source PA
[2021-03-17 15:37] LABS: Source RA
[2021-03-17 15:37] LABS: ABG PCO2 81.3 mmhg (35.0-45.0); ABG PO2 33.1 mmhg (80-100)
[2021-03-17 15:38] LABS: ABG PCO2 75.3 mmhg (35.0-45.0); ABG PO2 35.3 mmhg (80-100)
--- NOTE | 2021-03-17 15:43 | CT_ITS ---
PROCEDURE: CT ABDOMEN PELVIS WO CON CLINICAL INDICATION: abdominal edeam COMPARISON: CT CT ABDOMEN PELVIS WO CON from 11/08/2019 TECHNIQUE: Axial images obtained with sagittal and coronal reformats. All CT scans at the facility use one or more dose reduction, viz: automated exposure control, ma/kV adjustment per patient size (including targeted exams where dose is matched to indication, i.e. head), or iterative reconstruction technique. FINDINGS: LOWER THORAX: Cardiomegaly with mild atelectatic changes in the lung bases. ABDOMEN & PELVIS: The liver, spleen, adrenal glands, pancreas, and kidneys have an unremarkable appearance. Gallstones are present. No evidence of appendicitis. No intestinal obstruction or free air is evident. There are scattered colonic diverticula but no evidence of diverticulitis. No evidence of aortic aneurysm. No evidence of inferior vena cava enlargement. The inferior vena cava is actually small in diameter. There is a small umbilical hernia containing fat. No pelvic mass or abnormal fluid collection. There are degenerative changes of the lumbar spine with 5 mm anterolisthesis of L5 on S1. Degenerative changes also noted involving the hips IMPRESSION: No acute abdominal or pelvic findings. No evidence of enlarged inferior vena cava. No caval compression apparent Dictated by: Thong Edmondson MD 03/17/2021 17:05 Thong Edmondson MD in [place] 03/17/2021 17:07
[2021-03-17 16:25] LABS: CATHL Arterial O2 SAT 53.1 % (90-100); CATHL Venous O2 SAT 57 % (75-80)
--- NOTE | 2021-03-17 18:25 | PC.NURSE ---
HE IS ALERT TO SELF AND CAN ANSWER MOST QUESTIONS, HEAR CATH TODAY WITH IJ APPROACH VSS THUS FAR, 3 LNC FOR O2 SUPPORT.
[2021-03-17 20:11] LABS: POC Glucose,Bedside 174 (70-110)
[2021-03-17 20:11] LABS: POC Glucose,Bedside 201 (70-110)
[2021-03-17 21:33] LABS: POC Glucose,Bedside 187 (70-110)
[2021-03-18] VITALS (8 sets, daily range): BP systolic 116–144; BP diastolic 68–89; PULSE 70–114; RESP 18–24; TEMP 36.4–36.9; O2SAT 94–98; BMI 43.4
[2021-03-18 05:40] LABS: Basophils % 0.1 % (0.1-2.0); Hematocrit 28.7 % (42.0-52.0); Hemoglobin 9.2 g/dL (14.1-18.0); Lymphocytes # 1.5 K/mm3 (0.7-4.5); Lymphocytes % 14.4 % (10-50); Mean Corpuscular HGB Conc 32.1 g/dL (31.8-35.4); Mean Corpuscular Hemoglobin 30.5 pg (27.0-31.2); Mean Corpuscular Volume 95.1 fl (80-94); Mean Platelet Volume 9.4 fl (7.4-10.4); Monocytes # 0.7 K/mm3 (0.1-1.0); Monocytes % 6.5 % (1.7-9.3); Neutrophils # 8.3 K/mm3 (1.8-7.8); Platelet Count 200 K/mm3 (142-424); Red Blood Count 3.02 M/mm3 (4.60-6.20); Red Cell Distribution Width 14.6 % (11.5-17.5); White Blood Count 10.5 K/mm3 (4.8-10.8)
[2021-03-18 05:47] LABS: Chloride 95 mmol/L (98-107); Sodium 140 mmol/L (136-145)
[2021-03-18 05:51] LABS: Carbon Dioxide 36 mmol/L (22.0-30.0); Creatinine Clearance Estimated 24 mL/min (50-200); Estimated Glomerular Filt Rate 19 ml/min (>60); GFR (African American) 23 ML/MIN (>60); Glucose 182 mg/dl (74-100)
[2021-03-18 05:53] LABS: Blood Urea Nitrogen 86 mg/dl (9-20)
[2021-03-18 06:25] LABS: POC Glucose,Bedside 172 (70-110)
--- NOTE | 2021-03-18 06:25 | PC.NURSE ---
pt has rested intermittently this shift, has had several episodes of urinary incontinence, no complaints of SOA or chest pain, remains on 3L NC
--- NOTE | 2021-03-18 09:54 | HMH.PNCARD ---
Subjective Date: 03/18/21 Time: 09:45 Principal diagnosis: chf Interval history: This is a 60-year-old -[place] gentleman who was admitted for CHF. The patient underwent right cardiac catheterization yesterday and was found to have normal to slightly mildly elevated intracardial filling pressures. The patient has noncardiogenic anasarca which is most likely from venous insufficiency. He did undergo a CT of the abdomen and pelvis which ruled out inferior vena caval syndrome. This morning the patient is sitting up in a chair and states that he is feeling much better. He was able to walk to the chair with minimal assistance during physical therapy. He denies any chest pain or pressure this morning. He states that his shortness of breath is significantly improved and is only mild with exertion now. He denies any fever, chills, nausea, vomiting, diarrhea. The patient is able to answer all of my questions appropriately and he is following all of my commands. Exam Vital signs and Labs for Last 24 Hours: Temp Pulse Resp BP Pulse Ox 97.6 F 107 H 18 116/78 94 L 03/18/21 04:00 03/18/21 04:00 03/18/21 04:00 03/18/21 04:00 03/18/21 04:00 Laboratory Results - last 24 hr 03/17/21 06:46: Total Counted 100, Neutrophils % (Manual) 83 H, Lymphocytes % (Manual) 12, Monocytes % (Manual) 5, Platelet Estimate Normal, RBC Morphology Normal 03/17/21 12:10: POC Glucose 201 H 03/17/21 15:25: ABG O2 Sat (Measured) 53.1 L, POC VBG O2 Sat (Reggie) 57 L 03/17/21 15:32: Specimen Source Pa, ABG pH 7.32 L, ABG pCO2 81.3 H, ABG pO2 33.1 L, ABG HCO3 41.2 H, ABG Total CO2 43.7 H, ABG O2 Saturation 53 L*, ABG Base Excess 15.2 H 03/17/21 15:40: Specimen Source Ra, ABG pH 7.33 L, ABG pCO2 75.3 H, ABG pO2 35.3 L, ABG HCO3 38.9 H, ABG Total CO2 41.2 H, ABG O2 Saturation 58 L*, ABG Base Excess 13.0 H 03/17/21 17:33: POC Glucose 174 H 03/17/21 20:04: POC Glucose 187 H 03/18/21 05:15: WBC 10.5, RBC 3.02 L, Hgb 9.2 L, Hct 28.7 L, MCV 95.1 H, MCH 30.5, MCHC 32.1, RDW 14.6, Plt Count 200, MPV 9.4, Neut % (Auto) 79.0, Lymph % (Auto) 14.4, [place] % (Auto) 6.5, Eos % (Auto) 0.0 L, Baso % (Auto) 0.1, Neut # (Auto) 8.3 H, Lymph # (Auto) 1.5, [place] # (Auto) 0.7, Eos # (Auto) 0.0, Baso # (Auto) 0.0 03/18/21 05:15: Sodium 140, Potassium 4.0, Chloride 95 L, Carbon Dioxide 36 H, Anion Gap 13.0, BUN 86 H, Creatinine 3.40 H, Estimated Creat Clear 24, Estimated GFR 19 L*, Est GFR ( Amer) 23 L, Glucose 182 H, Calcium 6.0 L 03/18/21 05:32: POC Glucose 172 H I & O for Last 24 hours: Intake & Output 03/15/21 03/16/21 03/17/21 03/18/21 23:59 23:59 23:59 23:59 Intake Total 360 / 360 900 / 900 240 / 480 240 / 240 Output Total 350 / 350 200 / 200 650 / 650 300 / 300 Balance 700 / 700 -410 / -170 -60 / -60 Weight 315 lb 4 oz 313 lb 9 oz 306 lb 6.4 oz 303 lb 6 oz Microbiology Reports for the Last 24 Hours: Microbiology 03/12/21 14:58 Blood Blood Culture - Final NO GROWTH AFTER 5 DAYS 03/12/21 14:58 Blood Blood Culture - Final NO GROWTH AFTER 5 DAYS Narrative: CT abdomen/pelvis shows: No acute abdominal or pelvic findings. No evidence of enlarged inferior vena cava. No caval compression apparent - Constitutional no acute distress, morbidly obese - *Routine HEENT Exam Head: Present: normocephalic, atraumatic Eye: Present: EOMI, PERRL ENT: Present: mucous membranes moist - *Routine Neck Exam Present: supple, full ROM, normal carotid upstroke. Absent: JVD, carotid bruit, lymphadenopathy - *Routine Respiratory Exam Present: CTA bilaterally - *Routine Cardiovascular Exam Present: RRR, Normal S1, Normal S2. Absent: murmur - *Routine Abdominal Exam Present: soft, normoactive bowel sounds. Absent: tenderness, distended - *Routine Extremities Exam Present: edema, full ROM, pulses intact, normal capillary refill. Absent: cyanosis, clubbing - *Routine Skin Exam Present: intact,
--- NOTE | 2021-03-18 09:59 | HMH.ACPN2 ---
Internal Medicine - PN: Subj *Date: 03/18/21 *Time: 08:45 Interval history: pt sitting up in chair states he feels better. per PT pt was mid assist to chair. Exam Vital signs and Labs for Last 24 Hours: Temp Pulse Resp BP Pulse Ox 98.2 F 79 20 134/68 96 03/18/21 08:00 03/18/21 08:00 03/18/21 08:00 03/18/21 08:00 03/18/21 08:00 Laboratory Results - last 24 hr 03/17/21 06:46: Total Counted 100, Neutrophils % (Manual) 83 H, Lymphocytes % (Manual) 12, Monocytes % (Manual) 5, Platelet Estimate Normal, RBC Morphology Normal 03/17/21 12:10: POC Glucose 201 H 03/17/21 15:25: ABG O2 Sat (Measured) 53.1 L, POC VBG O2 Sat (Reggie) 57 L 03/17/21 15:32: Specimen Source Pa, ABG pH 7.32 L, ABG pCO2 81.3 H, ABG pO2 33.1 L, ABG HCO3 41.2 H, ABG Total CO2 43.7 H, ABG O2 Saturation 53 L*, ABG Base Excess 15.2 H 03/17/21 15:40: Specimen Source Ra, ABG pH 7.33 L, ABG pCO2 75.3 H, ABG pO2 35.3 L, ABG HCO3 38.9 H, ABG Total CO2 41.2 H, ABG O2 Saturation 58 L*, ABG Base Excess 13.0 H 03/17/21 17:33: POC Glucose 174 H 03/17/21 20:04: POC Glucose 187 H 03/18/21 05:15: WBC 10.5, RBC 3.02 L, Hgb 9.2 L, Hct 28.7 L, MCV 95.1 H, MCH 30.5, MCHC 32.1, RDW 14.6, Plt Count 200, MPV 9.4, Neut % (Auto) 79.0, Lymph % (Auto) 14.4, [place] % (Auto) 6.5, Eos % (Auto) 0.0 L, Baso % (Auto) 0.1, Neut # (Auto) 8.3 H, Lymph # (Auto) 1.5, [place] # (Auto) 0.7, Eos # (Auto) 0.0, Baso # (Auto) 0.0 03/18/21 05:15: Sodium 140, Potassium 4.0, Chloride 95 L, Carbon Dioxide 36 H, Anion Gap 13.0, BUN 86 H, Creatinine 3.40 H, Estimated Creat Clear 24, Estimated GFR 19 L*, Est GFR ( Amer) 23 L, Glucose 182 H, Calcium 6.0 L 03/18/21 05:32: POC Glucose 172 H I & O for Last 24 hours: Intake & Output 03/15/21 03/16/21 03/17/21 03/18/21 11:59 11:59 11:59 11:59 Intake Total 310 / 310 960 / 960 60 / 60 760 / 760 Output Total 800 / 800 450 / 450 700 / 700 Balance -490 / -490 960 / 960 -390 / -390 60 / 60 Weight 315 lb 4 oz 313 lb 9 oz 306 lb 6.4 oz 303 lb 6 oz Microbiology Reports for the Last 24 Hours: Microbiology 03/12/21 14:58 Blood Blood Culture - Final NO GROWTH AFTER 5 DAYS 03/12/21 14:58 Blood Blood Culture - Final NO GROWTH AFTER 5 DAYS - Constitutional no acute distress, morbidly obese, chronically ill appearing - *Routine HEENT Exam Head: Present: normocephalic Eye: Present: PERRL ENT: Present: mucous membranes moist - *Routine Neck Exam Present: supple. Absent: lymphadenopathy - *Routine Respiratory Exam Present: CTA bilaterally - *Routine Cardiovascular Exam Present: RRR - *Routine Abdominal Exam Present: soft, normoactive bowel sounds, obese. Absent: tenderness - *Routine Extremities Exam Present: edema, normal capillary refill. Absent: cyanosis, clubbing Comments: improved edema - *Routine Skin Exam Present: warm. Absent: rash - *Routine Neurological Exam Present: alert, oriented X3 - Routine Psychiatric Exam Present: normal affect Assessment and Plan (1) Sinus tachycardia Status: Resolved Category: Medical Code(s): R00.0 - Tachycardia, unspecified (2) Heart failure, diastolic, acute on chronic Status: Chronic Category: Medical Code(s): I50.33 - Acute on chronic diastolic (congestive) heart failure (3) CKD (chronic kidney disease) stage 4, GFR 15-29 ml/min Status: Chronic Category: Medical Code(s): N18.4 - Chronic kidney disease, stage 4 (severe) (4) Morbid obesity with body mass index (BMI) of 40.0 to 49.9 Status: Acute Category: Medical Code(s): E66.01 - Morbid (severe) obesity due to excess calories (5) Anemia Status: Acute Qualifiers: Qualified Code(s): D64.9 - Anemia, unspecified Category: Medical Code(s): D64.9 - Anemia, unspecified (6) Hypothyroid Status: Chronic Qualifiers: Qualified Code(s): E03.8 - Other specified hypothyroidism Category: Medical Code(s): E03.9 - Hypothyroid
[2021-03-18 12:08] LABS: POC Glucose,Bedside 206 (70-110)
--- NOTE | 2021-03-18 18:02 | PC.NURSE ---
PT IS RESTING IN BED. TOLERATED SITTING UP IN THE CHAIR FOR SEVERAL HOURS THIS SHIFT. PT HAS BEEN USING THE URINAL TO VOID BUT HAS ALSO HAD SOME OCCASIONAL EPISODES OF INCONTINENCE. PT WAS MODERATE ASSIST TO TRANSFER FROM CHAIR TO BED WITH PHYSICAL THERAPY. LUNG SOUNDS DIMINISHED. ABDOMEN LARGE/FIRM WITH HYPOACTIVE BOWEL SOUNDS. PT WAS NOT SURE WHEN HIS LAST BOWEL MOVEMENT WAS. EATING AND DRINKING WELL. PT HAS TO CONTINUOUSLY BE REMINDED THAT HE IS ON A FLUID RESTRICTION. WILL CONTINUE TO MONITOR.
[2021-03-19] VITALS: BP 128/63; PULSE 106; RESP 18; TEMP 36.4; O2SAT 99
[2021-03-19 02:09] LABS: POC Glucose,Bedside 185 (70-110)
[2021-03-19 02:27] LABS: POC Glucose,Bedside 165 (70-110)
[2021-03-19 03:17] VITALS: BP 108/66; PULSE 82; RESP 17; TEMP 36.6; O2SAT 94
[2021-03-19 03:33] VITALS: O2SAT 94
[2021-03-19 04:00] VITALS: PULSE 112
--- NOTE | 2021-03-19 04:38 | PC.NURSE ---
pt had a bath at start of shift and sat up in chair. iv patent. vss. call light in reach. will continue to monitor
[2021-03-19 05:00] VITALS: BMI 43.1
[2021-03-19 06:13] LABS: Chloride 94 mmol/L (98-107)
[2021-03-19 06:14] LABS: Potassium 4.2 mmoL/L (3.5-5.1); Sodium 141 mmol/L (136-145)
[2021-03-19 06:17] LABS: Anion Gap 14.2 mEq/L (5-15); Carbon Dioxide 37 mmol/L (22.0-30.0); Creatinine Clearance Estimated 25 mL/min (50-200); Estimated Glomerular Filt Rate 19 ml/min (>60); GFR (African American) 23 ML/MIN (>60); Glucose 137 mg/dl (74-100)
[2021-03-19 06:26] LABS: Basophils % 0.1 % (0.1-2.0); Eosinophils # 0.1 K/mm3 (0.0-0.4); Eosinophils % 0.6 % (0.1-12.0); Hematocrit 29.4 % (42.0-52.0); Hemoglobin 9.5 g/dL (14.1-18.0); Lymphocytes # 1.9 K/mm3 (0.7-4.5); Lymphocytes % 22.9 % (10-50); Mean Corpuscular HGB Conc 32.2 g/dL (31.8-35.4); Mean Corpuscular Hemoglobin 30.4 pg (27.0-31.2); Mean Corpuscular Volume 94.4 fl (80-94); Monocytes # 0.8 K/mm3 (0.1-1.0); Monocytes % 9.1 % (1.7-9.3); Neutrophils # 5.7 K/mm3 (1.8-7.8); Neutrophils % 67.3 % (37.0-80.0); Platelet Count 235 K/mm3 (142-424); Red Blood Count 3.12 M/mm3 (4.60-6.20); Red Cell Distribution Width 14.5 % (11.5-17.5); White Blood Count 8.5 K/mm3 (4.8-10.8)
[2021-03-19 06:36] LABS: Blood Urea Nitrogen 96 mg/dl (9-20); Calcium 5.9 mg/dl (8.4-10.2)
[2021-03-19 07:51] VITALS: BP 107/70; PULSE 113; RESP 16; TEMP 36.7; O2SAT 95
[2021-03-19 08:00] VITALS: PULSE 110
--- NOTE | 2021-03-19 08:22 | P.PN_ITS ---
Subjective Date: 03/19/21 Time: 08:22 Principal diagnosis: chf Interval history: 60-year-old male in bed in no acute distress. Patient denies any chest pain, pressure or tightness. Exam Vital signs and Labs for Last 24 Hours: Temp Pulse Resp BP Pulse Ox 98.0 F 113 H 16 107/70 L 95 03/19/21 07:51 03/19/21 07:51 03/19/21 07:51 03/19/21 07:51 03/19/21 07:51 Laboratory Results - last 24 hr 03/18/21 12:01: POC Glucose 206 H 03/18/21 16:37: POC Glucose 165 H 03/18/21 20:54: POC Glucose 185 H 03/19/21 05:34: Sodium 141, Potassium 4.2, Chloride 94 L, Carbon Dioxide 37 H, Anion Gap 14.2, BUN 96 H, Creatinine 3.30 H, Estimated Creat Clear 25, Estimated GFR 19 L*, Est GFR ( Amer) 23 L, Glucose 137 H, Calcium 5.9 L 03/19/21 05:34: WBC 8.5, RBC 3.12 L, Hgb 9.5 L, Hct 29.4 L, MCV 94.4 H, MCH 30.4, MCHC 32.2, RDW 14.5, Plt Count 235, MPV 9.0, Neut % (Auto) 67.3, Lymph % (Auto) 22.9, [place] % (Auto) 9.1, Eos % (Auto) 0.6, Baso % (Auto) 0.1, Neut # (Auto) 5.7, Lymph # (Auto) 1.9, [place] # (Auto) 0.8, Eos # (Auto) 0.1, Baso # (Auto) 0.0 I & O for Last 24 hours: Intake & Output 03/16/21 03/17/21 03/18/21 03/19/21 11:59 11:59 11:59 11:59 Intake Total 960 / 960 60 / 60 760 / 760 760 / 760 Output Total 450 / 450 700 / 700 450 / 450 Balance 960 / 960 -390 / -390 60 / 60 310 / 310 Weight 313 lb 9 oz 306 lb 6.4 oz 303 lb 6 oz 301 lb 5 oz - *Routine Respiratory Exam Present: CTA bilaterally - *Routine Cardiovascular Exam Present: RRR, murmur - *Routine Extremities Exam Present: edema. Absent: cyanosis, clubbing - *Routine Neurological Exam Present: alert Progress Note: A&P (1) Sinus tachycardia Status: Resolved (2) Heart failure, diastolic, acute on chronic Status: Chronic Assessment and plan: [place] related to dietary indiscretion (3) CKD (chronic kidney disease) stage 4, GFR 15-29 ml/min Status: Chronic (4) Morbid obesity with body mass index (BMI) of 40.0 to 49.9 Status: Acute (5) Anemia Status: Acute (6) Hypothyroid Status: Chronic (7) Edema of lower extremity Status: Acute Assessment and plan: [place] secondary to venous insufficiency (8) HTN (hypertension) Status: Chronic (9) Hyperlipemia Status: Chronic (10) Acute on chronic renal failure Status: Acute (11) Pickwickian syndrome Status: Acute Assessment and Plan for All Diagnoses:: Patient stable from a cardiac standpoint to be discharged today. Lasix converted from IV to p.o. 120 mg twice daily. Discussed with Dr. Zavala who will monitor his renal function closely at the [facility]. Home medications Isordil 20 mg twice daily Metoprolol tartrate 200 mg twice daily Xarelto 10 mg daily Lasix 120 mg twice daily
--- NOTE | 2021-03-19 09:58 | HMH.DCSUM ---
General - General Admission date:: 03/12/21 Discharge date: 03/19/21 HPI HPI: 60 yr old male presented to ed bad cough that started today. Pt brought in by ambulance from [facility]. He denies shortness of breath, chest pain, fever, sputum production, or hemoptysis. Denies leg pain or any change in chronic swelling of the legs. Pt states [facility], he does not know how many liters. Pt has chronic kidney failure. per ed note reported to have a low blood pressure and tachycardia at the [facility]. pt admitted for CHF and cardiology work up. Hospital Course Hospital Course: Laboratory Tests 03/12/21 03/12/21 03/12/21 14:40 14:58 14:58 WBC 9.0 RBC 3.26 L Hgb 10.0 L Hct 30.8 L MCV 94.5 H MCH 30.6 MCHC 32.4 RDW 14.9 Plt Count 190 MPV 9.6 Neut % (Auto) 58.4 Lymph % (Auto) 27.1 [place] % (Auto) 8.6 Eos % (Auto) 5.4 Baso % (Auto) 0.4 Neut # (Auto) 5.3 Lymph # (Auto) 2.4 [place] # (Auto) 0.8 Eos # (Auto) 0.5 H Baso # (Auto) 0.0 Total Counted Neutrophils % (Manual) Lymphocytes % (Manual) Monocytes % (Manual) Platelet Estimate RBC Morphology ESR D-Dimer Specimen Source ABG pH ABG pCO2 ABG pO2 ABG HCO3 ABG Total CO2 ABG O2 Sat (Measured) ABG O2 Saturation ABG Base Excess POC VBG O2 Sat (Reggie) Sodium 143 Potassium 4.7 Chloride 101 Carbon Dioxide 34 H Anion Gap 12.7 BUN 50 H Creatinine 3.00 H Estimated Creat Clear 27 Estimated GFR 22 L Est GFR ( Amer) 26 L Glucose 80 POC Glucose Lactate Calcium 7.1 L Total Bilirubin 0.2 AST 17 ALT 8 L Alkaline Phosphatase 77 Total Creatine Kinase Troponin I C-Reactive Protein NT-Pro-B Natriuret Pep Total Protein 6.9 Albumin 3.5 Globulin 3.4 H Albumin/Globulin Ratio 1.0 L Vitamin B12 Procalcitonin TSH Thyroxine (T4) Urine Color Yellow Urine Appearance Clear Urine pH 7.0 Ur Specific [place] 1.010 Urine Protein Negative Urine Glucose (UA) Negative Urine Ketones Negative Urine Blood Negative Urine Nitrate Negative Urine Bilirubin Negative Urine Urobilinogen 0.2 Ur Leukocyte Esterase Negative Urine RBC None Urine WBC None Ur Squamous Epith Cells None Urine Bacteria None Total Valproic Acid Chlamy pneumoniae PCR Adenovirus (PCR) B. pertussis DNA (PCR) Coronavirus OC43 (PCR) Coronavirus HKU1 (PCR) Coronavirus 229E (PCR) SARS-CoV-2 (PCR) Coronavirus NL63 (PCR) Human Metapneumovir PCR Influenza A (H1) PCR Influ A (H1N1/09) PCR Influenza A (H3) PCR Influenza Type A (PCR) Influenza Type B (PCR) M. pneumoniae (PCR) Parainfluenza 1 (PCR) Parainfluenza 2 (PCR) Parainfluenza 3 (PCR) Parainfluenza 4 (PCR) RSV (PCR) Entero/Rhino (PCR) 03/12/21 03/12/21 03/12/21 14:58 14:58 14:58 WBC RBC Hgb Hct MCV MCH MCHC RDW Plt Count MPV Neut % (Auto) Lymph % (Auto) [place] % (Auto) Eos % (Auto) Baso % (Auto) Neut # (Auto) Lymph # (Auto) [place] # (Auto) Eos # (Auto) Baso # (Auto) Total Counted Neutrophils % (Manual) Lymphocytes % (Manual) Monocytes % (Manual) Platelet Estimate RBC Morphology ESR D-Dimer Specimen Source ABG pH ABG pCO2 ABG pO2 ABG HCO3 ABG Total CO2 ABG O2 Sat (Measured) ABG O2 Saturation ABG Base Excess POC VBG O2 Sat (Reggie) Sodium Potassium Chloride Carbon Dioxide Anion Gap BUN Creatinine Estimated Creat Clear Estimated GFR Est GFR ( Amer) Glucose POC Glucose Lactate 1.1 Calcium Total Bilirubin AST ALT Alkaline Phosphatase Total Creatine Kinase Troponin I < 0.01 C-Reactive Pro
[2021-03-19 12:00] LABS: POC Glucose,Bedside 134 (70-110)
[2021-03-19 12:00] LABS: POC Glucose,Bedside 243 (70-110)
== END 2021-03-19 11:45 | DRG 286 ==
LOC: ER 16:56 → 2ND 03-13 07:46
PROVIDERS: Internal Medicine; Internal Medicine Adolescent Medicine; Nurse Practitioner Family; Admitting Provider Emergency Medicine; Emergency Provider Emergency Medicine; PCP Emergency Medicine; Visit Provider Emergency Medicine
PROC: 4A023N6 Measurement of Cardiac Sampling and Pressure, Right Heart, Percutaneous Approach (ICD-10-PCS; principal; 2021-03-17 10:15)
DX: I13.0 Hypertensive heart and chronic kidney disease with heart failure and stage 1 through stage 4 chronic kidney disease, or unspecified chronic kidney disease (principal); I50.33 Acute on chronic diastolic (congestive) heart failure; N18.4 Chronic kidney disease, stage 4 (severe); E66.2 Morbid (severe) obesity with alveolar hypoventilation; Z68.41 Body mass index [BMI] 40.0-44.9, adult; N17.9 Acute kidney failure, unspecified; Z20.822 Contact with and (suspected) exposure to COVID-19; E11.22 Type 2 diabetes mellitus with diabetic chronic kidney disease; Z79.4 Long term (current) use of insulin; E03.9 Hypothyroidism, unspecified; E78.5 Hyperlipidemia, unspecified; D63.1 Anemia in chronic kidney disease; R00.0 Tachycardia, unspecified; R60.1 Generalized edema; R29.2 Abnormal reflex; I27.20 Pulmonary hypertension, unspecified
CPT/HCPCS: 36415; 70450; 71045; 71250; 72148; 74176; 78582; 80048; 80053; 80164; 81001; 82550; 82607; 82803; 82810; 82962; 83605; 83880; 84145; 84436; 84443; 84484; 85007; 85025; 85378; 85651; 86140; 87040; 87581; 87633; 87798; 93005; 93306; 93451; 93970; 94760; 94761; 96365; 96367; 96375; 96376; 97162; 97166; 97530; 97535; 99152; 99153; 99284; A9539; A9540; C1894; J0456

== ENCOUNTER 2021-03-20 19:09 | Emergency (ER) | payer MEDICARE, MEDICAID, SELFPAY ==
[2021-03-20] VITALS (11 sets, daily range): BP systolic 94–124; BP diastolic 52–87; PULSE 102–114; RESP 15–23; TEMP 36.4; O2SAT 93–100; BMI 51.5
--- NOTE | 2021-03-20 19:20 | XR_ITS ---
PROCEDURE INFORMATION: Exam: XR Chest Exam date and time: 03/20/21 07:20 PM Age: 60 years old Clinical indication: Dyspnea; Additional info: SOA TECHNIQUE: Imaging protocol: XR of the chest. Views: 1 view. COMPARISON: CR XR CHEST AP 03/15/21 04:29 PM FINDINGS: Lungs: Subsegmental atelectasis right mid lung. Pleural spaces: Unremarkable. No pleural effusion. No pneumothorax. Heart/Mediastinum: Cardiomegaly. Mild CHF. Bones/joints: Severe osteoarthritic changes both shoulders. IMPRESSION: Mild CHF. No significant interval change since comparison.
--- NOTE | 2021-03-20 19:20 | ECG_ITS ---
APPROVED REPORT Exam: Resting ECG HR:112 bpm ECG Measurements Heart Rate 112 AXES ID 124 P 61 QRSd 74 QRS -41 QT 350 T 66 QTc 477 Conclusion Sinus tachycardia Left axis deviation Abnormal ECG Electronically signed by : Isaiah Marcial, 03/21/2021 08:15:19
[2021-03-20 19:28] LABS: Basophils % 0.3 % (0.1-2.0); Eosinophils # 0.1 K/mm3 (0.0-0.4); Eosinophils % 1.1 % (0.1-12.0); Hematocrit 29.1 % (42.0-52.0); Hemoglobin 9.7 g/dL (14.1-18.0); Lymphocytes # 1.8 K/mm3 (0.7-4.5); Lymphocytes % 21.1 % (10-50); Mean Corpuscular HGB Conc 33.3 g/dL (31.8-35.4); Mean Corpuscular Hemoglobin 31.2 pg (27.0-31.2); Mean Corpuscular Volume 93.9 fl (80-94); Mean Platelet Volume 9.1 fl (7.4-10.4); Monocytes # 0.7 K/mm3 (0.1-1.0); Monocytes % 7.9 % (1.7-9.3); Neutrophils # 5.8 K/mm3 (1.8-7.8); Neutrophils % 69.6 % (37.0-80.0); Platelet Count 218 K/mm3 (142-424); Red Blood Count 3.09 M/mm3 (4.60-6.20); Red Cell Distribution Width 14.4 % (11.5-17.5); White Blood Count 8.4 K/mm3 (4.8-10.8)
[2021-03-20 19:32] LABS: Alanine Aminotransferase 19 U/L (12-78); Albumin Level 3.3 g/dl (3.5-5.0); Alkaline Phosphatase 63 U/L (38-126); Anion Gap 9.7 mEq/L (5-15); Aspartate Amino Transferase 64 U/L (17-59); Bilirubin,Total 0.3 mg/dl (0.2-1.3); Carbon Dioxide 38 mmol/L (22.0-30.0); Chloride 97 mmol/L (98-107); Creatinine Clearance Estimated 19 mL/min (50-200); Estimated Glomerular Filt Rate 18 ml/min (>60); GFR (African American) 21 ML/MIN (>60); Globulin 3.4 g/dL (1.3-3.2); Glucose 257 mg/dl (74-100); Potassium 3.7 mmoL/L (3.5-5.1); Sodium 141 mmol/L (136-145); Total Protein,Serum 6.7 g/dl (6.3-8.2)
[2021-03-20 19:37] LABS: C-Reactive Protein 72.2 mg/L (0-4)
[2021-03-20 19:42] LABS: Blood Urea Nitrogen 103 mg/dl (9-20); Calcium 6.3 mg/dl (8.4-10.2)
[2021-03-20 19:46] LABS: ABG Base Excess 11.5 mmol/L (-2.4-2.3); ABG HCO3 35.4 mmhg (22.0-26.0); ABG Oxygen Saturation 92 % (90-100); ABG PH 7.46 mmol/L (7.35-7.45); ABG PO2 72.1 mmhg (80-100); Allen's Test Y; Oxygen 4 %; Source R/R
[2021-03-20 19:47] LABS: NT Pro Brain Natriuretic Pep. 1530 pg/mL (0-125); Troponin I 0.03 ng/ml (0.00-0.034)
[2021-03-20 19:47] LABS: ABG PCO2 51.4 mmhg (35.0-45.0)
[2021-03-20 19:52] LABS: Procalcitonin 0.343 ng/mL (0.0-2.0)
[2021-03-20 19:54] LABS: Erythrocyte Sedimentation Rate > 140 mm/hr (0-20)
[2021-03-20 19:57] LABS: Microscopic, Urine URINE MICROSCOPIC (MICROSCOPIC)
[2021-03-20 20:04] LABS: Appearance,Urine CLEAR (Clear); Bilirubin,Urine Negative (Negative); Blood, Urine 1+ (Negative); Color,Urine YELLOW (Yellow); Glucose,Urine (UA) Negative (Negative); Ketones,Urine Negative (Negative); Leukocyte Esterase,Urine Negative (Negative); Nitrate,Urine Negative (Negative); PH,Urine 5.5 (5.0-8.5); Protein,Urine TRACE (Negative); Urobilinogen,Urine 0.2 EU/dl (0.2)
[2021-03-20 20:12] LABS: Bacteria,Urine Trace /lpf; RBC,Urine Occasional #/hpf (0-3); Squamous Epithelial Cell,Urine Occasional #/hpf (0-5); WBC,Urine Occasional #/hpf (0-3)
--- NOTE | 2021-03-20 20:19 | HMH.EDSOB ---
ED Disposition Clinical Impression: Heart failure, diastolic, acute on chronic, CKD (chronic kidney disease) stage 4, GFR 15-29 ml/min, Pickwickian syndrome Disposition: Home, Self-Care Condition on Discharge: Fair Instructions: DI for Shortness of Breath Additional Instructions: will need to be seen monday at 0900 at [facility] Referrals: Provider,Referral, [Primary Care Provider] - - Critical Care Critical Care Time: No Attestation: On 03/20/21, the high probability of a clinically significant, sudden or life threatening deterioration of the following system(s) required my full and direct attention, intervention and personal management. The time I documented below is in addition to time spent performing reported procedures but includes the following listed in this critical care notation. Medical Decision Making - Medical Records Medical records reviewed: Yes: I reviewed the patient's medical records. - Huang Inquiry Pt receiving controlled substance: No Vital Signs: 03/20/21 19:22 03/20/21 19:38 03/20/21 20:00 Temperature 97.5 F L Temperature Source Oral Pulse Rate 112 H 105 H Pulse Rate [Left] 114 H Respiratory Rate 22 Blood Pressure 98/61 L 113/73 Blood Pressure [Right Arm] 100/56 L Blood Pressure Mean [Right Arm] 70 Blood Pressure Source [Right Arm] Automatic Cuff Blood Pressure Position [Right Arm] Supine 02 Sat by Pulse Oximetry 93 L 99 100 Oxygen Delivery Method Nasal Cannula Oxygen Flow Rate (LPM) 4 4 4 03/20/21 20:30 03/20/21 21:06 03/20/21 21:30 Temperature Temperature Source Pulse Rate 106 H 109 H 102 H Pulse Rate [Left] Respiratory Rate 15 23 Blood Pressure 123/76 124/87 107/76 L Blood Pressure [Right Arm] Blood Pressure Mean [Right Arm] Blood Pressure Source [Right Arm] Blood Pressure Position [Right Arm] 02 Sat by Pulse Oximetry 99 96 98 Oxygen Delivery Method Nasal Cannula Nasal Cannula Oxygen Flow Rate (LPM) 4 4 4 03/20/21 22:00 03/20/21 22:30 03/20/21 22:51 Temperature Temperature Source Pulse Rate 107 H 103 H 109 H Pulse Rate [Left] Respiratory Rate 21 20 20 Blood Pressure 115/79 114/77 98/67 L Blood Pressure [Right Arm] Blood Pressure Mean [Right Arm] Blood Pressure Source [Right Arm] Blood Pressure Position [Right Arm] 02 Sat by Pulse Oximetry 95 96 95 Oxygen Delivery Method Nasal Cannula Nasal Cannula Nasal Cannula Oxygen Flow Rate (LPM) 4 4 4 03/20/21 23:04 03/20/21 23:30 03/21/21 00:13 Temperature Temperature Source Pulse Rate 106 H 105 H 102 H Pulse Rate [Left] Respiratory Rate 22 21 18 Blood Pressure 94/52 L 99/53 L 98/52 L Blood Pressure [Right Arm] Blood Pressure Mean [Right Arm] Blood Pressure Source [Right Arm] Blood Pressure Position [Right Arm] 02 Sat by Pulse Oximetry 96 94 L 98 Oxygen Delivery Method Nasal Cannula Nasal Cannula Nasal Cannula Oxygen Flow Rate (LPM) 4 4 4 - Lab Data Lab results reviewed: Yes: I reviewed the patient's lab results. Lab Results 03/20/21 19:15: WBC 8.4, RBC 3.09 L, Hgb 9.7 L, Hct 29.1 L, MCV 93.9, MCH 31.2, MCHC 33.3, RDW 14.4, Plt Count 218, MPV 9.1, Neut % (Auto) 69.6, Lymph % (Auto) 21.1, [place] % (Auto) 7.9, Eos % (Auto) 1.1, Baso % (Auto) 0.3, Neut # (Auto) 5.8, Lymph # (Auto) 1.8, [place] # (Auto) 0.7, Eos # (Auto) 0.1, Baso # (Auto) 0.0, ESR > 140 H 03/20/21 19:15: Sodium 141, Potassium 3.7, Chloride 97 L, Carbon Dioxide 38 H, Anion Gap 9.7, BUN 103 H*, Creatinine 3.60 H, Estimated Creat Clear 19, Estimated GFR 18 L*, Est GFR ( Amer) 21 L, Glucose 257 H, Calcium 6.3 L, Total Bilirubin 0.3, AST 64 H, ALT 19, Alkaline Phosphatase 63, Troponin I 0.03, C-Reactive Protein 72.2 H, NT-Pro-B Natriuret Pep 1530 H, Total Protein 6.7, Albumin 3.3 L, Globulin 3.4 H, Albumin/Globulin Ratio 1.0 L, Procalcitonin 0.343 03/20/21 19:45: Specimen Source R/r, O2 % 4, ABG pH 7.46 H, ABG pCO2 51.4 H, ABG pO2 72.1 L, ABG HCO3 35.4 H, ABG Total
[2021-03-20 23:01] LABS: POC Glucose,Bedside 211 (70-110)
[2021-03-20 23:18] LABS: Troponin I 0.03 ng/ml (0.00-0.034)
[2021-03-21 00:13] VITALS: BP 98/52; PULSE 102; RESP 18; O2SAT 98
[2021-03-21 01:17] VITALS: BP 100/59; PULSE 99; RESP 14; TEMP 36.4; O2SAT 97
== END 2021-03-21 01:52 | disposition home or self-care (01) ==
PROVIDERS: Emergency Provider Emergency Medicine
DX: I50.33 Acute on chronic diastolic (congestive) heart failure (principal); N18.4 Chronic kidney disease, stage 4 (severe); E66.2 Morbid (severe) obesity with alveolar hypoventilation; E03.9 Hypothyroidism, unspecified; E11.9 Type 2 diabetes mellitus without complications; E78.5 Hyperlipidemia, unspecified; I10 Essential (primary) hypertension; Z79.899 Other long term (current) drug therapy; Z68.43 Body mass index [BMI] 50.0-59.9, adult
CPT/HCPCS: 71045; 80053; 81001; 82803; 82962; 83880; 84145; 84484; 85025; 85651; 86140; 93005; 96365; 99283

== ENCOUNTER 2021-03-31 18:26 | Observation (INO) | payer MEDICARE, MEDICAID, SELFPAY ==
[2021-03-31] VITALS (15 sets, daily range): BP systolic 94–146; BP diastolic 62–97; PULSE 83–91; RESP 13–29; TEMP 36.5–36.9; O2SAT 91–99; BMI 51.5
--- NOTE | 2021-03-31 18:34 | ECG_ITS ---
APPROVED REPORT Exam: Resting ECG HR:82 bpm ECG Measurements Heart Rate 82 AXES AR 126 P 61 QRSd 70 QRS -53 QT 374 T 78 QTc 436 Conclusion Normal sinus rhythm Left axis deviation Abnormal ECG Electronically signed by : Isaiah Marcial, 04/01/2021 18:04:55
--- NOTE | 2021-03-31 18:40 | XR_ITS ---
PROCEDURE INFORMATION: Exam: XR Chest Exam date and time: 03/31/2021 6:40 PM Age: 60 years old Clinical indication: Other: Altered mental status; Additional info: Rosc TECHNIQUE: Imaging protocol: XR of the chest. Views: 1 view. COMPARISON: 1. CR XR CHEST PORTABLE 03/20/2021 7:32 PM 2. CR XR CHEST AP 03/15/2021 4:[address] CHEST WO CON 03/12/2021 3:27 PM 4. CR XR CHEST PORTABLE 03/12/2021 2:27 PM FINDINGS: Airway: The airways are patent. Lungs: Haziness/ground-glass opacification in the bilateral lung bases and right infrahilar region. Linear opacification in the right mid lung. Pleural spaces: There is blunting of the left costophrenic angle. Right costophrenic angle is clear. There is no evidence of pneumothorax. Heart/Mediastinum: The heart is mildly enlarged. Bones/joints: No acute skeletal abnormality or aggressive osseous lesion. IMPRESSION: 1. Concern for mild/developing airspace disease in the bilateral lung bases versus crowding of bronchovascular structures. 2. Suspected small left pleural effusion. 3. Linear/platelike atelectasis in the right mid lung.
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
[2021-03-31 19:12] LABS: Basophils % 0.4 % (0.1-2.0); Eosinophils # 0.3 K/mm3 (0.0-0.4); Eosinophils % 4.2 % (0.1-12.0); Hematocrit 28.2 % (42.0-52.0); Hemoglobin 9.1 g/dL (14.1-18.0); Lymphocytes # 1.9 K/mm3 (0.7-4.5); Mean Corpuscular HGB Conc 32.2 g/dL (31.8-35.4); Mean Corpuscular Hemoglobin 30.3 pg (27.0-31.2); Mean Corpuscular Volume 94.2 fl (80-94); Monocytes # 0.8 K/mm3 (0.1-1.0); Monocytes % 9.2 % (1.7-9.3); Neutrophils # 5.2 K/mm3 (1.8-7.8); Neutrophils % 63.2 % (37.0-80.0); Platelet Count 290 K/mm3 (142-424); Red Blood Count 2.99 M/mm3 (4.60-6.20); Red Cell Distribution Width 14.8 % (11.5-17.5); White Blood Count 8.2 K/mm3 (4.8-10.8)
[2021-03-31 19:35] LABS: Alanine Aminotransferase 26 U/L (12-78); Albumin Level 3.2 g/dl (3.5-5.0); Albumin/Globulin Ratio 0.9 (1.1-1.8); Alkaline Phosphatase 69 U/L (38-126); Aspartate Amino Transferase 31 U/L (17-59); Bilirubin,Total 0.4 mg/dl (0.2-1.3); Calcium 7.8 mg/dl (8.4-10.2); Chloride 91 mmol/L (98-107); Creatinine Clearance Estimated 19 mL/min (50-200); Estimated Glomerular Filt Rate 18 ml/min (>60); GFR (African American) 21 ML/MIN (>60); Globulin 3.4 g/dL (1.3-3.2); Glucose 190 mg/dl (74-100); Sodium 138 mmol/L (136-145); Total Protein,Serum 6.6 g/dl (6.3-8.2)
[2021-03-31 19:42] LABS: Carbon Dioxide 37 mmol/L (22.0-30.0)
[2021-03-31 19:47] LABS: Troponin I 0.02 ng/ml (0.00-0.034)
[2021-03-31 20:22] LABS: Blood Urea Nitrogen 83 mg/dl (9-20)
--- NOTE | 2021-03-31 21:39 | PC.NURSE ---
Paged Dr. Laureano at this time
[2021-03-31 22:36] LABS: Coronavirus 19, PCR Not Detected (NotDetected); Influenza A, PCR Not Detected (NotDetected); Influenza B, PCR Not Detected (NotDetected)
[2021-03-31 22:59] LABS: Troponin I 0.02 ng/ml (0.00-0.034)
--- NOTE | 2021-04-01 00:05 | PC.NURSE ---
PT ARRIVED TO FLOOR VIA STRETCHER FROM ED W/STAFF AT 0004
[2021-04-01 00:19] VITALS: BP 142/72; PULSE 97; RESP 18; TEMP 36.6; O2SAT 98
--- NOTE | 2021-04-01 03:03 | PC.NURSE ---
A&OX3. TOLERATING RA WELL. PT HAS NOT HAD ANY SYNCOPAL EPISODES THUS FAR THIS SHIFT. HAS HAD NO C/O PAIN. PT HAD BATH THIS SHIFT, TOLERATED WELL. X3-4 ASSIST. PT HAS APPETITE. PT REMAINS INCONTINENT T/O SHIFT. KEPT CLEAN AND DRY. PT RESTING T/O MAJORITY OF SHIFT, VSS WILL CONTINUE TO MONITOR.
[2021-04-01 03:54] VITALS: BP 133/74; PULSE 117; RESP 17; TEMP 36.4; O2SAT 97
[2021-04-01 05:03] VITALS: BMI 47.7
[2021-04-01 07:15] LABS: Basophils % 0.3 % (0.1-2.0); Eosinophils # 0.3 K/mm3 (0.0-0.4); Eosinophils % 4.4 % (0.1-12.0); Hematocrit 28.2 % (42.0-52.0); Lymphocytes # 1.3 K/mm3 (0.7-4.5); Lymphocytes % 19.2 % (10-50); Mean Corpuscular HGB Conc 31.9 g/dL (31.8-35.4); Mean Corpuscular Hemoglobin 30.7 pg (27.0-31.2); Mean Corpuscular Volume 96.3 fl (80-94); Monocytes # 0.6 K/mm3 (0.1-1.0); Neutrophils # 4.6 K/mm3 (1.8-7.8); Neutrophils % 67.1 % (37.0-80.0); Platelet Count 194 K/mm3 (142-424); Red Blood Count 2.93 M/mm3 (4.60-6.20); White Blood Count 6.8 K/mm3 (4.8-10.8)
--- NOTE | 2021-04-01 07:26 | HMH.PHAVTE ---
[facility] Pharmacy VTE Monitoring - Patient Demographics Admission date: 03/31/21 Report Date: 04/01/21 Time: 07:26 Allergies/Adverse Reactions: Patient Allergies No Known Allergies Allergy (Verified 03/03/21 10:04) Height: 1.65 m Weight: 129.898 kg Patient Problems: Current Active Problems (Last Updated 11/13/19 @ 19:15 by Addison Brumfield APRN) Chest pain (Acute) - VTE Risk Labs: VTE Related Lab Results Hgb 9.0 g/dL (14.1-18.0) L 04/01/21 07:07 Hct 28.2 % (42.0-52.0) L 04/01/21 07:07 Plt Count 194 K/mm3 (142-424) D 04/01/21 07:07 BUN 83 mg/dl (9-20) H 03/31/21 18:39 Creatinine 3.60 mg/dl (0.66-1.25) H 03/31/21 18:39 Estimated Creat Clear 19 mL/min (50-200) 03/31/21 18:39 - Prophylaxis VTE Prophylaxis Ordered?: Yes Types of VTE Prophylaxis: TEDS Knee High Location of Applied Device: Bilateral Lower Extremeties
[2021-04-01 07:43] LABS: Chloride 96 mmol/L (98-107)
[2021-04-01 07:44] LABS: Potassium 4.7 mmoL/L (3.5-5.1); Sodium 139 mmol/L (136-145)
[2021-04-01 07:46] LABS: Creatinine Clearance Estimated 21 mL/min (50-200); Estimated Glomerular Filt Rate 20 ml/min (>60); GFR (African American) 24 ML/MIN (>60)
[2021-04-01 07:47] LABS: Anion Gap 10.7 mEq/L (5-15); Calcium 7.4 mg/dl (8.4-10.2); Carbon Dioxide 37 mmol/L (22.0-30.0); Glucose 195 mg/dl (74-100)
[2021-04-01 07:49] VITALS: BP 101/59; PULSE 96; RESP 20; TEMP 36.8; O2SAT 97
[2021-04-01 08:01] LABS: Blood Urea Nitrogen 81 mg/dl (9-20)
--- NOTE | 2021-04-01 08:19 | PC.NURSE ---
NAME AND VERIFIED WITH LAB. AWARE OF CRITICAL BUN. NO NEW ORDERS.
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
--- NOTE | 2021-04-01 09:35 | SW/DCPLANNER ---
Addendum entered by Evelyn Aceves 04/01/21 13:00: I have notified Bharati with [facility] that this patient will return today. Original Note: This patient currently resides at [facility]. I spoke with Bharati from [place] whom confirmed that patient is currently SNF level of care. I will continue to follow up with Bharati until patient is medically stable for discharge. Discharge date is unknown at this time.
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
[2021-04-01 10:38] LABS: NT Pro Brain Natriuretic Pep. 686 pg/mL (0-125)
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
== END 2021-04-01 13:30 ==
LOC: ER 21:46 → 2ND 23:56
PROVIDERS: Family Medicine; Physician Assistant; Admitting Provider Internal Medicine Adolescent Medicine; Emergency Provider Emergency Medicine; PCP Nurse Practitioner Family; Visit Provider Emergency Medicine
DX: R07.9 Chest pain, unspecified (principal); R55 Syncope and collapse; N18.4 Chronic kidney disease, stage 4 (severe); E11.22 Type 2 diabetes mellitus with diabetic chronic kidney disease; I13.0 Hypertensive heart and chronic kidney disease with heart failure and stage 1 through stage 4 chronic kidney disease, or unspecified chronic kidney disease; I50.9 Heart failure, unspecified; E03.9 Hypothyroidism, unspecified; E66.2 Morbid (severe) obesity with alveolar hypoventilation; Z68.42 Body mass index [BMI] 45.0-49.9, adult
CPT/HCPCS: 71045; 80048; 80053; 83880; 84484; 85025; 93005; 96365; 96375; 99283; G0378; J2405; U0003

== ENCOUNTER 2021-04-02 13:18 | Emergency (ER) | payer MEDICARE, MEDICAID, SELFPAY ==
[2021-04-02] VITALS (7 sets, daily range): BP systolic 87–116; BP diastolic 53–67; PULSE 91–107; RESP 12–24; TEMP 36.9–37; O2SAT 92–98; BMI 50.0
--- NOTE | 2021-04-02 13:13 | ECG_ITS ---
APPROVED REPORT Exam: Resting ECG HR:99 bpm ECG Measurements Heart Rate 99 AXES ND 120 P 60 QRSd 74 QRS -43 QT 330 T 63 QTc 423 Conclusion Normal sinus rhythm Left axis deviation Abnormal ECG Electronically signed by : Isaiah Marcial, 04/03/2021 21:29:11
--- NOTE | 2021-04-02 13:20 | HMH.EDGENADL ---
ED Disposition Clinical Impression: Pneumonia Qualifiers: Pneumonia type: due to unspecified organism Laterality: right Lung location: lower lobe of lung Qualified Code(s): J18.9 - Pneumonia, unspecified organism Disposition: Home, Self-Care Condition on Discharge: Good Referrals: Octaviano Raymundo APRN [Primary Care Provider] - 04/05/21 Time of Disposition: 16:15 - Critical Care Critical Care Time: No Attestation: On , the high probability of a clinically significant, sudden or life threatening deterioration of the following system(s) required my full and direct attention, intervention and personal management. The time I documented below is in addition to time spent performing reported procedures but includes the following listed in this critical care notation. Medical Decision Making - Medical Records Medical records reviewed: Yes: I reviewed the patient's medical records. - Huang Inquiry Pt receiving controlled substance: No Vital Signs: 04/02/21 13:18 04/02/21 13:20 04/02/21 14:00 Temperature 98.6 F Temperature Source Oral Pulse Rate 101 H 103 H Pulse Rate [Right] 97 H Respiratory Rate 16 12 18 Blood Pressure 100/53 L 105/59 L Blood Pressure [Right Arm] 116/67 Blood Pressure Mean Blood Pressure Mean [Right Arm] 83 02 Sat by Pulse Oximetry 97 96 92 L Oxygen Delivery Method Room Air Nasal Cannula Oxygen Flow Rate (LPM) 2 04/02/21 15:01 04/02/21 15:30 04/02/21 15:58 Temperature Temperature Source Pulse Rate 100 H 105 H 107 H Pulse Rate [Right] Respiratory Rate 24 20 20 Blood Pressure 94/59 L 87/58 L 103/56 L Blood Pressure [Right Arm] Blood Pressure Mean 70 66 71 Blood Pressure Mean [Right Arm] 02 Sat by Pulse Oximetry 96 96 96 Oxygen Delivery Method Oxygen Flow Rate (LPM) - Lab Data Lab results reviewed: Yes: I reviewed the patient's lab results. Lab Results 04/02/21 13:33: WBC 12.1 H D, RBC 3.25 L, Hgb 9.9 L, Hct 31.7 L, MCV 97.7 H, MCH 30.4, MCHC 31.1 L, RDW 14.6, Plt Count 240, MPV 9.6, Neut % (Auto) 52.7, Lymph % (Auto) 35.6, [place] % (Auto) 8.7, Eos % (Auto) 2.2, Baso % (Auto) 0.7, Neut # (Auto) 6.4, Lymph # (Auto) 4.3, [place] # (Auto) 1.1 H, Eos # (Auto) 0.3, Baso # (Auto) 0.1 04/02/21 13:33: Sodium 139, Potassium 5.0, Chloride 93 L, Carbon Dioxide 38 H, Anion Gap 13.0, BUN 76 H, Creatinine 3.80 H, Estimated Creat Clear 19, Estimated GFR 16 L*, Est GFR ( Amer) 20 L, Glucose 243 H, Calcium 7.9 L, Total Bilirubin 0.2, AST 32, ALT 27, Alkaline Phosphatase 78, Total Protein 7.1, Albumin 3.5, Globulin 3.6 H, Albumin/Globulin Ratio 1.0 L Result diagrams: 04/02/21 13:33 04/02/21 13:33 Orders (Tests/Meds): ED MEDICATIONS Discontinued Medications Generic Name Dose Route Start Last Admin Trade Name Freq PRN Reason Stop Dose Admin Amoxicillin/Clavulanate Potassium 1 each 04/02/21 15:52 04/02/21 15:53 Amoxicillin/Pot Clavulan 500mg Tablet PO 04/02/21 15:53 1 each ONCE ONE Administration Protocol ORDERS Category Date Time Status UDS [Drug Screen,Urine] Stat Lab 04/02/21 13:21 Ordered Urinalysis and Microscopic Stat Lab 04/02/21 13:20 Ordered - Radiology Data #1 Image(s): Chest Image Reviewed: Yes I have reviewed radiologist's interpretation Preliminary Findings: Abnormal Possible lower lobe infiltrate - ECG Data Tracing #1 I reviewed this ECG and interpreted as documented below: Normal sinus rhythm, 99 bpm, no ST elevation or depression, normal intervals, no ectopy. ECG initial impression date: 04/02/21 ECG initial impression time: 13:13 Medical Decision Narrative: 60yo M sent from the [facility] secondary to possible syncope. Patient no acute distress on initial evaluation. EKG reviewed as above and unremarkable. Patient is alert answering questions at his baseline. Laboratory studies reveal a mild increase in WBCs. Chest x-ray concerning for possible lower lobe infiltrate. We will treat t
[2021-04-02 13:41] LABS: Basophils # 0.1 K/mm3 (0-0.2); Basophils % 0.7 % (0.1-2.0); Eosinophils # 0.3 K/mm3 (0.0-0.4); Eosinophils % 2.2 % (0.1-12.0); Hematocrit 31.7 % (42.0-52.0); Hemoglobin 9.9 g/dL (14.1-18.0); Lymphocytes # 4.3 K/mm3 (0.7-4.5); Lymphocytes % 35.6 % (10-50); Mean Corpuscular HGB Conc 31.1 g/dL (31.8-35.4); Mean Corpuscular Hemoglobin 30.4 pg (27.0-31.2); Mean Corpuscular Volume 97.7 fl (80-94); Mean Platelet Volume 9.6 fl (7.4-10.4); Monocytes # 1.1 K/mm3 (0.1-1.0); Monocytes % 8.7 % (1.7-9.3); Neutrophils # 6.4 K/mm3 (1.8-7.8); Neutrophils % 52.7 % (37.0-80.0); Platelet Count 240 K/mm3 (142-424); Red Blood Count 3.25 M/mm3 (4.60-6.20); Red Cell Distribution Width 14.6 % (11.5-17.5); White Blood Count 12.1 K/mm3 (4.8-10.8)
[2021-04-02 13:47] LABS: Chloride 93 mmol/L (98-107)
[2021-04-02 13:48] LABS: Sodium 139 mmol/L (136-145)
--- NOTE | 2021-04-02 13:48 | CT_ITS ---
PROCEDURE: CT HEAD/BRAIN WO CON CLINICAL INDICATION: syncope? COMPARISON: CT CT HEAD/BRAIN WO CON from 03/17/2021 TECHNIQUE: Axial images obtained. All CT scans at the facility use one or more dose reduction, viz: automated exposure control, ma/kV adjustment per patient size (including targeted exams where dose is matched to indication, i.e. head), or iterative reconstruction technique. FINDINGS: No midline shift, mass effect, intracranial hemorrhage, hydrocephalus, or extra-axial fluid collection is evident. The calvarium has an unremarkable appearance. No mastoid effusion. No sinus air-fluid level. IMPRESSION: No acute intracranial finding Dictated by: Thong Edmondson MD 04/02/2021 14:53 Thong Edmondson MD in [facility] 04/02/2021 14:53
[2021-04-02 13:50] LABS: Alanine Aminotransferase 27 U/L (12-78); Aspartate Amino Transferase 32 U/L (17-59); Creatinine Clearance Estimated 19 mL/min (50-200); Estimated Glomerular Filt Rate 16 ml/min (>60); GFR (African American) 20 ML/MIN (>60)
[2021-04-02 13:51] LABS: Albumin Level 3.5 g/dl (3.5-5.0); Alkaline Phosphatase 78 U/L (38-126); Bilirubin,Total 0.2 mg/dl (0.2-1.3); Calcium 7.9 mg/dl (8.4-10.2); Carbon Dioxide 38 mmol/L (22.0-30.0); Globulin 3.6 g/dL (1.3-3.2); Glucose 243 mg/dl (74-100); Total Protein,Serum 7.1 g/dl (6.3-8.2)
[2021-04-02 13:52] LABS: Blood Urea Nitrogen 76 mg/dl (9-20)
--- NOTE | 2021-04-02 13:56 | PC.NURSE ---
BUN AND CREATININE REPORTED TO DR. HERNÁNDEZ, NO NEW ORDERS
--- NOTE | 2021-04-02 15:13 | XR_ITS ---
PROCEDURE: XR CHEST PORTABLE CLINICAL HISTORY: wbc increasing COMPARISON: CT CT CHEST WO CON from 03/12/2021 CR XR CHEST AP from 03/15/2021 CR XR CHEST PORTABLE from 03/20/2021 CR XR CHEST PORTABLE from 03/31/2021 FINDINGS: Mild cardiomegaly without failure. Atelectasis in the right midlung. There is some increased density in the right lower lobe suspicious for pneumonia. Not significantly changed. Left lung base is obscured by the overlying heart. Degenerative changes of the shoulders IMPRESSION: No change right midlung atelectasis and right lower lobe infiltrate Dictated by: Thong Edmondson MD 04/02/2021 15:33 Thong Edmondson MD in [facility] 04/02/2021 15:33
--- NOTE | 2021-04-02 16:30 | PC.NURSE ---
[facility] notified of patient being ready for discharge and transport back to [place]
--- NOTE | 2021-04-02 16:52 | PC.NURSE ---
GAVE REPORT TO [facility] NURSE, ELIZABET MONTENEGRO AT THIS TIME
== END 2021-04-02 16:49 | disposition home or self-care (01) ==
PROVIDERS: Emergency Provider Family Medicine; PCP Nurse Practitioner Family
DX: J18.9 Pneumonia, unspecified organism (principal); E11.9 Type 2 diabetes mellitus without complications; E78.5 Hyperlipidemia, unspecified; I10 Essential (primary) hypertension; N28.9 Disorder of kidney and ureter, unspecified; I50.9 Heart failure, unspecified; Z79.899 Other long term (current) drug therapy
CPT/HCPCS: 70450; 71045; 80053; 85025; 93005; 99283

== ENCOUNTER 2021-04-05 21:02 | Emergency (ER) | payer MEDICARE, MEDICAID, SELFPAY ==
[2021-04-05 20:52] VITALS: BP 94/73; PULSE 103; RESP 18; TEMP 37.5; O2SAT 95; BMI 51.7
--- NOTE | 2021-04-05 20:52 | ECG_ITS ---
APPROVED REPORT Exam: Resting ECG HR:102 bpm ECG Measurements Heart Rate 102 AXES OR 120 P 55 QRSd 72 QRS -42 QT 330 T 70 QTc 430 Conclusion Sinus tachycardia Left axis deviation Late r wave progression - unchanged from prior Abnormal ECG Electronically signed by : Isaiah Marcial, 04/06/2021 21:19:40
[2021-04-05 21:00] VITALS: BP 94/75; PULSE 103; RESP 22; O2SAT 94
--- NOTE | 2021-04-05 21:01 | XR_ITS ---
PROCEDURE INFORMATION: Exam: XR Chest Exam date and time: 04/05/2021 9:01 PM Age: 60 years old Clinical indication: Patient HX: Was unresponsive at long term; Additional info: AMS TECHNIQUE: Imaging protocol: XR of the chest. Views: 1 view. COMPARISON: CR XR CHEST PORTABLE 04/02/2021 3:22 PM FINDINGS: Lungs: Patchy opacities present in bilateral lower lungs are unimproved. Low lung volumes. Pleural spaces: Unremarkable. No pleural effusion. No pneumothorax. Heart/Mediastinum: The heart is enlarged. Bones/joints: Moderate degenerative changes of bilateral shoulder joints. IMPRESSION: 1. Bilateral lower lungs atelectasis and/or pneumonia is unimproved. 2. Cardiomegaly.
[2021-04-05 21:11] LABS: Basophils % 0.3 % (0.1-2.0); Eosinophils # 0.4 K/mm3 (0.0-0.4); Eosinophils % 4.2 % (0.1-12.0); Hematocrit 28.5 % (42.0-52.0); Hemoglobin 9.2 g/dL (14.1-18.0); Lymphocytes # 1.7 K/mm3 (0.7-4.5); Lymphocytes % 19.6 % (10-50); Mean Corpuscular HGB Conc 32.3 g/dL (31.8-35.4); Mean Corpuscular Hemoglobin 31.3 pg (27.0-31.2); Mean Corpuscular Volume 96.9 fl (80-94); Mean Platelet Volume 10.4 fl (7.4-10.4); Monocytes # 0.8 K/mm3 (0.1-1.0); Neutrophils # 5.8 K/mm3 (1.8-7.8); Neutrophils % 66.9 % (37.0-80.0); Platelet Count 167 K/mm3 (142-424); Red Blood Count 2.94 M/mm3 (4.60-6.20); Red Cell Distribution Width 14.7 % (11.5-17.5); White Blood Count 8.6 K/mm3 (4.8-10.8)
--- NOTE | 2021-04-05 21:15 | PC.NURSE ---
discussed labs with , he will review and place orders appropriately.
[2021-04-05 21:19] LABS: Chloride 92 mmol/L (98-107); Potassium 4.6 mmoL/L (3.5-5.1); Sodium 140 mmol/L (136-145)
[2021-04-05 21:22] LABS: Alanine Aminotransferase 36 U/L (12-78); Albumin Level 3.5 g/dl (3.5-5.0); Albumin/Globulin Ratio 0.9 (1.1-1.8); Alkaline Phosphatase 73 U/L (38-126); Anion Gap 15.6 mEq/L (5-15); Aspartate Amino Transferase 40 U/L (17-59); Bilirubin,Total 0.5 mg/dl (0.2-1.3); Carbon Dioxide 37 mmol/L (22.0-30.0); Creatinine Clearance Estimated 18 mL/min (50-200); Estimated Glomerular Filt Rate 14 ml/min (>60); GFR (African American) 16 ML/MIN (>60); Globulin 3.7 g/dL (1.3-3.2); Total Protein,Serum 7.2 g/dl (6.3-8.2)
[2021-04-05 21:23] LABS: Calcium 7.9 mg/dl (8.4-10.2); Glucose 142 mg/dl (74-100)
--- NOTE | 2021-04-05 21:23 | HMH.EDSOB ---
ED Disposition Clinical Impression: CKD (chronic kidney disease) stage 4, GFR 15-29 ml/min CHF (congestive heart failure) Qualifiers: Heart failure type: biventricular Qualified Code(s): I50.82 - Biventricular heart failure Obesity Qualifiers: Obesity type: due to excess calories Obesity classification: adult class 3 (BMI >= 40) Serious obesity comorbidity presence: with serious comorbidity Body mass index: BMI 50.0-59.9 Qualified Code(s): E66.01 - Morbid (severe) obesity due to excess calories; Z68.43 - Body mass index [BMI] 50.0-59.9, adult Disposition: Home, Self-Care Condition on Discharge: Good Instructions: DI for Heart Failure Additional Instructions: continue present orders Referrals: Fito Zavala MD [Primary Care Provider] - - Critical Care Critical Care Time: No Attestation: On 04/05/21, the high probability of a clinically significant, sudden or life threatening deterioration of the following system(s) required my full and direct attention, intervention and personal management. The time I documented below is in addition to time spent performing reported procedures but includes the following listed in this critical care notation. Medical Decision Making - Medical Records Medical records reviewed: Yes: I reviewed the patient's medical records. - Huang Inquiry Pt receiving controlled substance: No Vital Signs: 04/05/21 20:52 04/05/21 21:00 04/05/21 21:30 Temperature 99.5 F 98.5 F Temperature Source Rectal Oral Pulse Rate 103 H 104 H Pulse Rate [Right Brachial] 103 H Respiratory Rate 18 22 25 H Blood Pressure 94/75 L 96/67 L Blood Pressure [Right Arm] 94/73 L Blood Pressure Mean Blood Pressure Mean [Right Arm] 80 Blood Pressure Source Automatic Cuff Automatic Cuff Blood Pressure Source [Right Arm] Automatic Cuff Blood Pressure Position Sitting Sitting Blood Pressure Position [Right Arm] Sitting 02 Sat by Pulse Oximetry 95 94 L 94 L Oxygen Delivery Method Room Air Room Air 04/05/21 23:00 04/05/21 23:54 04/06/21 00:00 Temperature 98.2 F Temperature Source Oral Pulse Rate 79 104 H 103 H Pulse Rate [Right Brachial] Respiratory Rate 18 18 Blood Pressure 99/72 L 110/70 115/74 Blood Pressure [Right Arm] Blood Pressure Mean 85 Blood Pressure Mean [Right Arm] Blood Pressure Source Automatic Cuff Blood Pressure Source [Right Arm] Blood Pressure Position Sitting Blood Pressure Position [Right Arm] 02 Sat by Pulse Oximetry 98 94 L 95 Oxygen Delivery Method Room Air Room Air 04/06/21 00:30 04/06/21 01:00 04/06/21 01:30 Temperature Temperature Source Pulse Rate 101 H 104 H 106 H Pulse Rate [Right Brachial] Respiratory Rate 18 18 18 Blood Pressure 107/75 L 116/71 100/77 L Blood Pressure [Right Arm] Blood Pressure Mean 83 77 83 Blood Pressure Mean [Right Arm] Blood Pressure Source Blood Pressure Source [Right Arm] Blood Pressure Position Blood Pressure Position [Right Arm] 02 Sat by Pulse Oximetry 94 L 94 L 93 L Oxygen Delivery Method Room Air Room Air Room Air 04/06/21 02:00 04/06/21 02:30 04/06/21 03:00 Temperature Temperature Source Pulse Rate 104 H 102 H 107 H Pulse Rate [Right Brachial] Respiratory Rate 18 18 18 Blood Pressure 106/77 L 101/76 L 113/75 Blood Pressure [Right Arm] Blood Pressure Mean 83 82 81 Blood Pressure Mean [Right Arm] Blood Pressure Source Blood Pressure Source [Right Arm] Blood Pressure Position Blood Pressure Position [Right Arm] 02 Sat by Pulse Oximetry 94 L 96 94 L Oxygen Delivery Method Room Air Room Air Room Air 04/06/21 03:30 04/06/21 04:00 04/06/21 04:30 Temperature Temperature Source Pulse Rate 106 H 107 H 100 H Pulse Rate [Right Brachial] Respiratory Rate 18 18 18 Blood Pressure 108/78 L 112/79 115/70 Blood Pressure [Right Arm] Blood Pressure Mean 85 86 78 Blood Pressure Mean [Right Arm] Blood Pressure Source
[2021-04-05 21:26] LABS: Blood Urea Nitrogen 85 mg/dl (9-20)
[2021-04-05 21:30] VITALS: BP 96/67; PULSE 104; RESP 25; TEMP 36.9; O2SAT 94
[2021-04-05 21:31] LABS: NT Pro Brain Natriuretic Pep. 502 pg/mL (0-125)
[2021-04-05 21:35] LABS: Troponin I 0.04 ng/ml (0.00-0.034)
[2021-04-05 21:45] LABS: Procalcitonin 0.593 ng/mL (0.0-2.0)
[2021-04-05 22:30] LABS: Valproic Acid, (Depakene) 84.2 ug/ml (50-100)
[2021-04-05 23:00] VITALS: BP 99/72; PULSE 79; RESP 18; TEMP 36.8; O2SAT 98
[2021-04-05 23:54] VITALS: BP 110/70; PULSE 104; O2SAT 94
[2021-04-06] VITALS (14 sets, daily range): BP systolic 94–116; BP diastolic 66–79; PULSE 100–124; RESP 18; TEMP 36.8; O2SAT 92–96
[2021-04-06 02:34] LABS: Troponin I 0.04 ng/ml (0.00-0.034)
[2021-04-06 03:40] LABS: Troponin I 0.04 ng/ml (0.00-0.034)
--- NOTE | 2021-04-06 06:44 | PC.NURSE ---
Report called to Lorraine [facility] [place].
--- NOTE | 2021-04-06 07:30 | PC.NURSE ---
Soiled patient cleaned prior to discharge via EMS to return to [place]
== END 2021-04-06 07:38 | disposition home or self-care (01) ==
PROVIDERS: Emergency Provider Emergency Medicine; PCP Emergency Medicine
DX: I50.82 Biventricular heart failure (principal); N18.4 Chronic kidney disease, stage 4 (severe); E66.01 Morbid (severe) obesity due to excess calories; R06.09 Other forms of dyspnea; Z68.43 Body mass index [BMI] 50.0-59.9, adult; E03.9 Hypothyroidism, unspecified; E11.9 Type 2 diabetes mellitus without complications; I10 Essential (primary) hypertension; E78.5 Hyperlipidemia, unspecified; J44.9 Chronic obstructive pulmonary disease, unspecified; Z79.899 Other long term (current) drug therapy
CPT/HCPCS: 36415; 71045; 80053; 80164; 83880; 84145; 84484; 85025; 93005; 96365; 96366; 99282